=== PATIENT | male | born 1965 | race Two or more races ===

== ENCOUNTER 2016-07-05 19:14 | Inpatient (IN) | payer SELFPAY ==
[~2016-07-05] VITALS: Ht 175.3 cm; Wt 118.6 kg
[2016-07-05] MEDS ORDERED: OXYB5TAB7 PO (19:31)
[2016-07-05] MEDS ORDERED: METO100T2 PO (19:31)
[2016-07-05] MEDS ORDERED: GLIM4TAB2 PO (19:31)
[2016-07-05] MEDS ORDERED: AMLO10TA2 PO (19:31)
[2016-07-05] MEDS ORDERED: LOSA100T6 PO (19:31)
[2016-07-05] MEDS ORDERED: CINN500C PO (19:31)
[2016-07-05] MEDS ORDERED: METF10002 PO (19:31)
[2016-07-05] MEDS ORDERED: NICARDIPINE HCL 50 MG in IV NORMAL SALINE 250ML 250 ML IV ONE (19:45)
[2016-07-05 19:52] LABS: BASO # 0.1 x10^3/uL (0.0-0.2); BASO % 1 % (0-3); EOS % 2 % (0-3); HEMATOCRIT 47.3 % (39.0-53.0); HEMOGLOBIN 16.1 g/dL (13.0-17.5); LYMPH # 2.3 x10^3/uL (1.0-4.8); LYMPH % 28 % (24-48); MEAN CORPUSCULAR HEMOGLOBIN 29 pg (25-35); MEAN CORPUSCULAR HGB CONC 34 g/dL (31-37); MEAN CORPUSCULAR VOLUME 85 fL (79-100); MONO % 7 % (0-9); NEUT % 63 % (31-73); PLATELET COUNT 248 x10^3/uL (140-400); RED BLOOD COUNT 5.53 x10^6/uL (4.30-5.70); RED CELL DISTRIBUTION WIDTH 13.6 % (11.5-14.5); WHITE BLOOD COUNT 8.5 x10^3/uL (4.0-11.0)
[2016-07-05 19:59] LABS: PROTHROMBIN TIME PATIENT 12.1 SEC (11.7-14.0)
[2016-07-05] MEDS ORDERED: IV NORMAL SALINE 1000ML BAG 1,000 ML IV SCH (20:00)
[2016-07-05 20:01] LABS: CALCIUM 9.5 mg/dL (8.5-10.1); CREATININE 1.2 mg/dL (0.7-1.3); GFR 63.8; POTASSIUM 3.8 mmol/L (3.5-5.1)
[2016-07-05 20:07] LABS: ALBUMIN 3.4 g/dL (3.4-5.0); ALBUMIN/GLOBULIN RATIO 0.8 (1.0-1.7); TOTAL BILIRUBIN 0.5 mg/dL (0.2-1.0); TOTAL PROTEIN 7.5 g/dL (6.4-8.2)
--- NOTE | 2016-07-05 20:16 | RAD ---
PROCEDURE CT head without contrast HISTORY CVA, generalized weakness, hypertension, diabetes TECHNIQUE Noncontrast axial cross sectional CT scanning of the head was performed. FINDINGS There is mild diffuse atrophy. There is encephalomalacia consistent with an old right frontal lobe infarct as well as an old right caudate nucleus infarct. No acute intracranial hemorrhage or midline shift or mass-effect or hydrocephalus or extra-axial fluid collection is seen. No focal hypodense area is seen to indicate an acute infarct or edema radiographically. No skull fracture or pneumocephalus is seen. No opacification of the mastoid sinuses or the paranasal sinuses is seen. The maxillary sinuses are not completely seen in this study. IMPRESSION Mild diffuse atrophy and old infarcts. No acute findings. PQRS Statement: One or more of the following individualized dose reduction techniques were utilized for this study: 1. Automated exposure control. 2. Adjustment of the mA and/or kV according to patient size. 3. Use of iterative reconstruction technique. Electronically signed by: Fransisco Linton MD (Jul 05, 2016 20:15:37)
[2016-07-05] MEDS ORDERED: ACETAMINOPHEN 325 MG TABLET. PO PRN (21:15)
[2016-07-05] MEDS ORDERED: ONDANSETRON PF 4 MG/2 ML VIAL. IV PRN ×2 (21:15→22:16)
[2016-07-05 21:37] LABS: BILIRUBIN,URINE NEGATIVE (NEG); GLUCOSE,URINE 250 mg/dL (NEG); NITRITE,URINE NEGATIVE (NEG); PROTEIN,URINE 100 mg/dL (NEG-TRACE); UROBILINOGEN,URINE 0.2 mg/dL (0.2 mg/dL)
[2016-07-05 21:46] LABS: BACTERIA,URINE 0 /HPF (0-FEW); SQUAMOUS EPITHELIAL CELL,UR OCC /LPF; WBC,URINE 20-40 /HPF (0-4)
[2016-07-05] MEDS ORDERED: DEXTROSE 50% 25 GM / 50ML DISP.SYRIN. IV PRN (22:30)
[2016-07-05] MEDS ORDERED: HYDROCODONE/APAP 5/325MG TABLET. PO PRN (22:30)
[2016-07-05 22:45] VITALS: BP 158/87
--- NOTE | 2016-07-05 22:47 | PHYS DOC ---
Past Medical History Past Medical History: CVA, Diabetes-Type II, Hypertension Past Surgical History: No Surgical History Alcohol Use: None Drug Use: None Adult General Chief Complaint Chief Complaint: HYPERTENSION HPI HPI Patient is a 51 year old white male who presents to the ER today complaining of generalized weakness and elevated blood pressure for approximately 1 week. Patient reports he feels weak all over. Patient does have a history significant for stroke that occurred approximately 6 months ago. According to the patient he had left-sided weakness with slurring his speech however his symptoms completely resolved after the stroke and prior to today symptoms he reports she was back to his baseline. Patient reports approximately 1 week ago he started having slurring in his speech and then today felt like his blood pressure was elevated and started to feel weak all over. Patient denies any focal weakness. Patient denies any facial droop. Patient denies any weakness in his left or right weakness greater than the other side. Patient does have a history of diabetes and hypertension. Patient has no history of NH, liver disease, peptic ulcer disease, lung disease, surgeries. Patient does not smoke drink or do drugs. Patient is not allergic to any medications. Patient is currently not on any anticoagulants. Patient is not on any Plavix. Patient denies any fevers shakes chills, patient denies any nausea vomiting or diarrhea, patient denies any chest pain. Patient reports she's had polyuria however this is been going on for approximately 6 months. Patient denies any double vision. Patient reports he is able mike at home however feels weak. Patient has no ataxia. Patient's physical exam and the ER is consistent with 1 elevated blood pressure upon arrival to the ER. Patient's blood pressure was 226/118 upon presentation. #2 nonfocal neuro exam. Patient has no facial droop. Patient's cranial nerves II -12 are intact. Patient has no nystagmus. Patient's cerebellar exam was within normal limits. Patient has equal strength bilaterally in his upper and lower extremities. Patient's workup in the ER was significant for hypertension needs to be acutely treated. Given the patient's symptoms of her recent slurred speech I decided to place the patient on IV nicardipine and obtain a CT scan of his head. Patient's blood pressure significantly improved he is in the ER. Patient's CT scan of his head showed old stroke but nothing acute. Patient's EKG revealed normal sinus rhythm with nonspecific ST-T wave abnormalities. There was no evidence of any acute ischemia on the patient's EKG in the ER. Patient's lab workup was all unremarkable. A/P #1 neurological symptoms. Patient's symptoms started approximately one week ago with slurring his speech and today patient has a complaint of generalized weakness. I do not believe that the weakness that the patient is concerned about a secondary to a stroke since it is nonfocal in nature. Patient's cranial nerves II-12 intact. Patient does not appear to have any facial droop. Patient' s speech right now does not appear to be slurred per the patient's friend. Given the patient's elevated blood pressure the patient was started on a nicardipine drip was titrated in the ED. Patient will be admitted to the ICU for further evaluation treatment and management of his elevated blood pressure and further evaluation of his slurred speech that he had approximately one week ago. Review of Systems Review of Systems Constitutional: Denies fever or chills [] Eyes: Denies change in visual acuity, redness, or eye pain [] Mendez other review systems are negative except as documented in the history of present illness portion Current Medications Current Medications Current Medications Medications (Trade) Dose Ordered Sig/Isaura Start Time Stop Time Status Last Admin Dose Admin Nicardipine HCl/ Sodium Chloride (Cardene/Iv Sodium Chloride 0.9% 250ml) 270 ml @ 0 mls/hr 1X ONCE 07/05/16 19:45 07/05/16 19:49 DC 07/05/16 20:08 0 MLS/HR Sodium Chloride 1,000 ml @ 1,000 mls/hr Q1H 07/05/16 20:00 07/05/16 20:59 DC 07/05/16 20:07 1,000 MLS/HR Allergies Allergies Allergies Coded Allergies Type Severity Reaction Last Updated Verified No Known Drug Allergies 07/05/16 No Physical Exam Physical Exam Constitutional: Well developed, well nourished, no acute distress, non-toxic appearance. [] HENT: Normocephalic, atraumatic, bilateral external ears normal, oropharynx moist, no oral exudates, nose normal. [] Eyes: PERRLA, EOMI, conjunctiva normal, no discharge. [] Neck: Normal range of motion, no tenderness, supple, no stridor. [] Cardiovascular:Heart rate regular rhythm, Lungs & Thorax: Bilateral breath sounds clear to auscultation [] Abdomen: Bowel sounds normal, soft, no tenderness, no masses, no pulsatile masses. [] Skin: Warm, dry, no erythema Back: No tenderness, no CVA tenderness. [] Extremities: No tenderness, no cyanosis, no clubbing, ROM intact, no edema. [] Neurologic: Alert and oriented X 3, normal motor function, normal sensory function, no focal deficits noted. [] Psychologic: Affect normal, judgement normal, mood normal. [] Current Patient Data Vital Signs Vital Signs Date Time Temp Pulse Resp B/P Pulse Ox O2 Delivery O2 Flow Rate FiO2 07/05/16 21:00 74 21 165/98 95 Room Air 07/05/16 19:25 98.7 98.7 Lab Values Laboratory Tests Test 07/05/16 19:25 White Blood Count 8.5x10^3/uL (4.0-11.0) Red Blood Count 5.53x10^6/uL (4.30-5.70) Hemoglobin 16.1g/dL (13.0-17.5) Hematocrit 47.3% (39.0-53.0) Mean Corpuscular Volume 85fL (79-100) Mean Corpuscular Hemoglobin 29pg (25-35) Mean Corpuscular Hemoglobin Concent 34g/dL (31-37) Red Cell Distribution Width 13.6% (11.5-14.5) Platelet Count 248x10^3/uL (140-400) Neutrophils (%) (Auto) 63% (31-73) Lymphocytes (%) (Auto) 28% (24-48) Monocytes (%) (Auto) 7% (0-9) Eosinophils (%) (Auto) 2% (0-3) Basophils (%) (Auto) 1% (0-3) Neutrophils # (Auto) 5.3x10^3uL (1.8-7.7) Lymphocytes # (Auto) 2.3x10^3/uL (1.0-4.8) Monocytes # (Auto) 0.6x10^3/uL (0.0-1.1) Eosinophils # (Auto) 0.2x10^3/uL (0.0-0.7) Basophils # (Auto) 0.1x10^3/uL (0.0-0.2) Prothrombin Time 12.1SEC (11.7-14.0) Prothrombin Time INR 1.0 (0.8-1.1) Sodium Level 142mmol/L (136-145) Potassium Level 3.8mmol/L (3.5-5.1) Chloride Level 102mmol/L (98-107) Carbon Dioxide Level 32mmol/L (21-32) Anion Gap 8 (6-14) Blood Urea Nitrogen 24mg/dL (8-26) Creatinine 1.2mg/dL (0.7-1.3) Estimated GFR (Cockcroft-Gault) 63.8 BUN/Creatinine Ratio 20 (6-20) Glucose Level 258mg/dL (70-99) H Calcium Level 9.5mg/dL (8.5-10.1) Total Bilirubin 0.5mg/dL (0.2-1.0) Aspartate Amino Transferase (AST) 11U/L (15-37) L Alanine Aminotransferase (ALT) 24U/L (16-63) Alkaline Phosphatase 76U/L (46-116) Troponin I Quantitative 0.024ng/mL (0.000-0.055) Total Protein 7.5g/dL (6.4-8.2) Albumin 3.4g/dL (3.4-5.0) Albumin/Globulin Ratio 0.8 (1.0-1.7) L Laboratory Tests 07/05/16 19:25 Laboratory Tests 07/05/16 19:25 EKG EKG [] Radiology/Procedures Radiology/Procedures Critical-care time 35 minutes reutilized and treatment and management of this patient's accelerated hypertension and stroke like symptoms. This is exclusive of any procedures that were performed. Patient was started on nicardipine drip and his blood pressure was titrated. Patient was monitored for signs and symptoms of acute progression of his strokelike symptoms and hypertension. [] Course & Med Decision Making Course & Med Decision Making Pertinent Labs and Imaging studies reviewed. (See chart for details) [] Dragon Disclaimer Dragon Disclaimer This electronic medical record was generated, in whole or in part, using a voice recognition dictation system. Departure Departure Impression: Primary Impression: CVA (cerebral vascular accident) Additional Impression: Hypertensive urgency Disposition: 01 HOME, SELF-CARE Admitting Physician: Sejal Mabry Condition: IMPROVED Referrals: UNKNOWN PCP NAME (PCP) Problem Qualifiers ROBERT BYRNE MD Jul 05, 2016 22:47
[2016-07-05 23:00] VITALS: BP 141/88
[2016-07-05 23:15] VITALS: BP 157/88
[2016-07-05 23:30] VITALS: BP 160/95
[2016-07-05 23:45] VITALS: BP 160/89
[2016-07-05 23:59] VITALS: BP 153/93
[2016-07-06] VITALS (28 sets, daily range): BP systolic 137–172; BP diastolic 82–108
[2016-07-06] MEDS ORDERED: NICARDIPINE HCL 50 MG in IV NORMAL SALINE 250ML 250 ML IV PRN (00:30)
--- NOTE | 2016-07-06 00:55 | ACF ---
Admission Forms Criteria INTENSIVE CARE UNIT ADMISSION Intensive Care Admission Guidelines ( Place 'X' for any and all applicable criteria): Admission to ICU may be indicated when need is demonstrated by ANY ONE of the following (1)(2)(3)(4)(5)(6)(7)(8)(9) : [ ]I. Vital sign abnormalities, including ANY ONE of the following: [ ]a) Systolic arterial pressure less than 90 mm Hg, or 20 mm Hg below the patient's usual pressure [ ]b) Diastolic arterial pressure greater than 120 mm Hg [ ]c) Mean arterial pressure less than 70 mm Hg [A] [ ]d) Pulse less than 40 or greater than 140 beats per minute (in adult) [ ]e) Respiratory rate greater than 35 or less than 8 breaths per minute [ ]II. Laboratory findings (new), including ANY ONE of the following (10): [ ]a) Saturation of arterial oxygen less than 88% or partial pressure of oxygen less than 60 mm Hg (8.0 kPa) despite oxygen supplementation [ ]b) Rising partial pressure of carbon dioxide with respiratory acidosis [ ]c) pH less than 7.2 or greater than 7.65 [ ]d) Serum glucose greater than 800 mg/dL (44.4 mmol/L) [ ]e) Serum sodium less than 110 mEq/L (mmol/L) or greater than 160 mEq/L (mmol/L) [ ]f) Serum potassium less than 2 mEq/L (mmol/L) or greater than 7 mEq /L (mmol/L) [ ]g) Serum calcium greater than 15 mg/dL (3.75 mmol/L) [ ]h) Serum phosphorus less than 1 mg/dL (0.32 mmol/L) [ ]i) Toxic drug level or poisoning causing or likely to cause neurologic or Hemodynamic instability [ ]j) Less severe laboratory abnormalities contributing to ANY ONE of the following: [ ]i) Seizure [ ]ii) Altered mental status [ ]iii) Muscle weakness [ ]iv) Arrhythmias [ ]v) Hemodynamic instability [ ]vi) Other significant clinical manifestations [ ]III. Electrocardiogram (or cardiac monitoring) findings, including ANY ONE of the following: [ ]a) Inherently unstable or life-threatening arrhythmia (eg, sustained ventricular tachycardia, ventricular fibrillation, asystole) [ ]b) Arrhythmia causing severe hypotension (eg, bradycardia, tachycardia) [ ]c) Complete heart block causing severe hypotension [ ]d) Other findings indicative of a need for intensive care (eg , WA) [ ]IV.Physical findings, including ANY ONE of the following: [ ]a) Threatened airway [ ]b) Sudden altered mental status [ ]c) Repeated or prolonged seizures [ ]d) Coma [ ]e) New-onset anuria (urine output <0.1 mL/kg/hr over 4 h) [ ]f) Cyanosis (new) [ ]g) Cardiac tamponade [ ]h) Status post respiratory or cardiac arrest [ ]i) Severe bashir (eg, partial thickness bashir over more than 10% of body surface, third-degree bashir) [ ]j) Findings consistent with abdominal emergency (eg, peritoneal signs) [ ]V.Imaging findings, such as dissecting aneurysm or ruptured viscus [X].Specific intervention or monitoring needed, as indicated by ANY ONE of the following: [ ]a) New need for assisted ventilation, invasive or noninvasive(11) [ ]b) New need for intubation (eg, to protect airway) [ ]c) New tracheostomy (less than 48 hours old) [X]d) Hourly vital signs or neurologic checks [ ]e) Pulmonary artery line monitoring needed [ ]f) Continuous arterial line monitoring needed [ ]g) Continuous IV vasoactive drugs [ ]h) Continuous IV antiarrhythmics [ ]i) Large volume IV fluid resuscitation (eg, greater than 6 L per day ) [ ]j) Large or rapid transfusion needs (eg, more than 6 units within 24 hours) [ ]k) High-risk IV treatment, such as bolus IV medicatns or mannitol infusion [ ]l) Acute cardiac pacing [ ]m) Intra-aortic balloon pump [ ]n) Ventricular assist device [ ]o) Cardioversion [ ]p) Pericardiocentesis [ ]q) Hemodialysis in unstable patient [ ]r) Continuous renal replacement therapy (eg, continuous veno-venous hemofiltration) [ ]s) Peritoneal dialysis initiation [ ]t) Emergency bronchoscopic therapy (eg, for hemoptysis) [ ]u) Emergency endoscopic therapy for bleeding [ ]v) Balloon tamponade for variceal bleeding [ ]w) Intracranial pressure monitoring or tissue oxygen monitoring [ ]x) Ventriculostomy monitoring [ ]y) Treatment of ongoing seizures [ ]z) Induced hypothermia or coma [ ]aa) Ongoing frequent testing and treatment for acute conditions, including ANY ONE of the following: [ ]i) Correction of severe metabolic acidosis/ alkalosis [ ]ii). Severe fluid overload [ ]iii) Cerebral edema [ ]iv) Monitoring or suctioning for respiratory insufficiency or acidosis [ ]v) Monitoring for active bleeding [ ]bb) Rapid desensitization for high-risk hypersensitivity reaction to required medication (eg, penicillin)(12) [ ]cc) Other need for treatment or monitoring not available outside the ICU [ ]VII.Cardiology diagnoses or procedures, including ANY ONE of the following (13)(14)(15)(16)(17): [ ]a) Chest pain with ANY ONE of the following: [ ]i) Hemodynamic instability [ ]ii) Suspicion of diagnoses needing ICU care (eg, aortic dissection) [ ]iii) New unstable or symptomatic arrhythmia or ECG finding (eg, ventricular tachycardia, ventricular fibrillation, advanced heart block) [ ]iv) Syncope or near-syncope [ ]v) SBP less than 100 mm Hg [ ]vi) Pulmonary edema thought to be due to ischemia [ ]vii) New or worsening mitral regurgitation murmur, S3 , or rales [ ]b) Acute WA with complications as indicated by ANY ONE of the following: [ ]i) Persistent chest pain [ ]ii) Hemodynamic instability [ ]iii) New unstable or symptomatic arrhythmia or ECG finding (eg, ventricular tachycardia, ventricular fibrillation, advanced heart block) [ ]iv) Syncope or near-syncope [ ]v) Pulmonary edema thought to be due to ischemia [ ]vi) New or worsening mitral regurgitation murmur, S3 , or rales [ ]vii) New-onset bundle branch block [ ]viii) Hemorrhagic complication (eg, intracranial or access site bleed following thrombolysis) [ ]c) Cardiac arrhythmia or conduction defect with Hemodynamic instability [ ]d) Complication of cardiac ablation, including ANY ONE of the following(18): [ ]i) Pericardial tamponade [ ]ii) Hemodynamic instability [ ]iii) Thromboembolic stroke [ ]iv) Aortic valve injury [ ]v) Vascular injuries [ ]vi) Esophageal perforation [ ]vii) Severe arrhythmia [ ]viii) Air embolism [ ]ix) Other severe complication [ ]e) Cardiogenic shock [ ]f) Hypertensive emergency, with need for ANY ONE of the following(19): [ ]i) IV antihypertensive therapy [ ]ii) Invasive hemodynamic monitoring (eg, arterial line) [ ]g) Pericardial tamponade [ ]h) Severe heart failure, with ANY ONE of the following(15): [ ]i) Respiratory failure [ ]ii) Cardiogenic shock [ ]iii) Severe arrhythmias [ ]iv) Evidence of cardiac ischemia [ ]i Myocarditis, with ANY ONE of the following [ ]i) Hemodynamic instability [ ]ii) Respiratory failure [ ]iii) Severe arrhythmias [ ]iv) Need for cardiac assist device (eg, left ventricular assist device or extracorporeal membrane oxygenator) [ ]j) Status post cardiac arrest(20) [ ]VIII. Cardiovascular Surgery diagnoses or procedures, including ANY ONE of the following.(21)(22): [ ]a) Acute aortic dissection [ ]b) Aortic surgery for ANY ONE of the following: [ ]i) Thoracic aneurysm [ ]ii) Abdominal aneurysm with ANY ONE of the following(23): [ ]1) Emergency repair [ ]2) Severe cardiopulmonary disease [ ]3) Dialysis-dependent renal failure [ ]4) Need for IV blood pressure control [ ]5) Need for ongoing ventilatory support [ ]6) Perioperative complications, including ANY ONE of the following: [ ]A. Sustained Hemodynamic instability [ ]B. Cardiac ischemia or arrhythmia [ ]C. Hypothermia (less than 35 degrees C (95 degrees F)) [ ]D. Blood transfusion greater than 3 L [ ]iii) Aortic coarctation operative excision or repair [ ]iv) Aortofemoral or aortoiliac bypass with ANY ONE of the following: [ ]1) Continued intubation [ ]2) Hemodynamic instability [ ]3) Need for IV blood pressure control [ ]4) Severe cardiopulmonary disease [ ]c) Cardiac surgery [ ]d) Carotid endarterectomy or stent placement with ANY ONE of the following: [ ]i) Blood pressure <100/60 mm Hg or >160/90 mm Hg despite 4 h of postanesthetic management [ ]ii) New or progressive neurologic defect [ ]iii) Chest pain [ ]iv) Continued intubation [ ]v) Heart failure [ ]vi) Airway compromise by hematoma or vocal cord paralysis [ ]vi) Need for IV blood pressure control [ ]e) Heart transplant [ ]f) Infrainguinal peripheral vascular surgery with ANY ONE of the following: [ ]i) Hemodynamic instability [ ]ii) Acute complications such as persistent chest pain or respiratory distress [ ]iii) Requirement for IV antiarrhythmic or vasoactive agent [ ]iv) Requirement for pulmonary artery catheter [ ]v) Severe hypertension despite 6 hours of recovery room management [ ]g) Complications of any surgery requiring ICU intervention as indicated by ANY ONE of the following(24): [ ]i) Hemodynamic instability [ ]ii) Myocardial infarction with complications (eg, severe arrhythmia, hypotension) [ ]iii) Excessive bleeding or severe coagulopathy [ ]iv) Respiratory failure [ ]v) Renal failure [ ]vi) Airway instability or obstruction [ ]vii) Neurologic deterioration [ ]viii) Infection with likelihood of sepsis syndrome or significant fluid shifts [ ]IX.Endocrinology diagnoses or procedures, including ANY ONE of the following(25)(26): [ ]a) Adrenal crisis with Hemodynamic instability(27) [ ]b) Pheochromocytoma with ANY ONE of the following(28): [ ]i) Hypertensive crisis [ ]ii) Postoperative Hemodynamic instability [ ]iii) Need for IV vasoactive therapy [ ]iv) Need for invasive arterial or central venous pressure monitoring [ ]v) Organ ischemia [ ]c) Diabetic hyperosmolar state with obtundation or coma [ ]d) Diabetic ketoacidosis with ANY ONE of the following: [ ]i) Serum pH less than 7.10 or bicarbonate level less than 10 mEq/L (mmol/L) [ ]ii) Rapidly changing electrolytes [ ]iii) Hypotension [ ]iv) Requirement for large-volume fluid resuscitation [ ]v) Respiratory insufficiency [ ]vi) Life-threatening cardiac dysrhythmias [ ]vii) Obtundation [ ]viii) Severe precipitating condition such as sepsis, stroke, or acute WA [ ]e) Severe hypoglycemia requiring continuous glucose infusion with frequent adjustment or glucagon infusion [ ]f) Hyperthyroidism associated with thyroid storm (also known as thyrotoxic crisis)(29) [ ]g) Myxedema with life-threatening neurologic, cardiovascular, electrolyte, or renal dysfunction(29) [ ]h) Diabetes insipidus that cannot be controlled with routine medication (30) [ ]X. Gastroenterology diagnoses or procedures, including ANY ONE of the following: [ ]a) Esophageal perforation(31) [ ]b) Severe caustic esophageal injury(31) [ ]c) Liver disease complications with ANY ONE of the following(32): [ ]i) Severe hepatic encephalopathy (eg, stage 3 (somnolent) or higher) [ ]ii) Type 1 hepatorenal syndrome [ ]iii) Other cirrhosis-associated causes of acute renal failure ( eg, severe hypovolemia, acute tubular necrosis, abdominal compartment syndrome) [ ]iv) Hemodynamic instability [ ]v) Respiratory insufficiency due to severe ascites [ ]vi) Sepsis due to spontaneous bacterial peritonitis [ ]d) Fulminant hepatic failure when aggressive intervention or transplant is anticipated (32) [ ]e) Gastrointestinal hemorrhage (upper or lower) with ANY ONE of the following(33)(34): [ ]i) Active ongoing bleeding [ ]ii) Transfusion requirement greater than 2 units of packed red cells [ ]iii) Bleeding ulcer or nonbleeding visible vessel seen on endoscopy [ ]iv) Bleeding ulcer, visible blood vessel, bleeding (or recently bleeding) esophageal varices seen on endoscopy [ ]v) Hypotension [ ]vi) Syncope [ ]vii) Coagulopathy [ ]viii) Hepatic cirrhosis [ ]ix) Abnormal mental status [ ]x) Unstable comorbid condition or end organ dysfunction [ ]xi) Ischemia due to poor perfusion [ ]xii) Need for hemodynamic monitoring (eg, for patients with heart failure or valvular disease) [ ]f) Severe pancreatitis indicated by ANY ONE of the following (35)(36): [ ]i) Requirement for aggressive fluid resuscitation [ ]ii) Life-threatening electrolyte abnormality [ ]iii) SBP less than 90 mm Hg [ ]iv) Persistent tachycardia greater than 120 beats per minute [ ]v) Patients at high risk of rapid deterioration, including ANY ONE of the following: [ ]1) Calculated [place] II score greater than 8 [ ]2) Age older than 55 years [ ]3) BMI greater than 30 [ ]4) Greater than 30% pancreatic necrosis on CT scan [ ]5) Admission hematocrit greater than 47% (0.47) [ ]vi) Organ failure as indicated by ANY ONE of the following: [ ]1) Serum creatinine greater than 1.9 mg/dL (168 micromoles/L) [ ]2) Requirement for mechanical ventilation [ ]3) Urine output less than 50 mL/hour [ ]4) Arterial partial pressure of oxygen less than 60 mm Hg (8.0 kPa) despite supplemental oxygen [ ]5) PiO2/FiO2 ratio less than 300 [ ]vii) Expanding pseudocyst [ ]viii) Infected pancreas [ ]ix) Pleural effusion [ ]x) Encephalopathy [ ]xi) Severe comorbidities [ ]XI. General Surgery diagnoses or procedures, including ANY ONE of the following (9)(24)(37): [ ]a) Acute abdominal catastrophe (eg, ischemic bowel, perforated viscus, abdominal compartment syndrome) [ ]b) Complications of any surgery requiring ICU intervention as indicated by ANY ONE of the following: [ ]i) Hemodynamic instability [ ]ii) WA with complications (eg, severe arrhythmia, hypotension) [ ]iii) Excessive bleeding or severe coagulopathy [ ]iv) Respiratory failure [ ]v) Renal failure [ ]vi) Airway instability or obstruction [ ]vii) Neurologic deterioration [ ]viii) Infection with likelihood of sepsis syndrome or significant fluid shifts [ ]c) Multiple trauma with complicating features as indicated by ANY ONE of the following(38): [ ]i) Impending acute respiratory failure due to lung contusion, unstable chest wall, aspiration, or hemorrhage [ ]ii) Facial or neck injury threatening airway patency [ ]iii) Cardiac contusion [ ]iv) Pericardial effusion [ ]v) Bronchial tear [ ]vi) Hemodynamic instability [ ]vii) Rhabdomyolisis requiring large volume IV fluid resuscitation [ ]viii)Other significant complicating feature [ ]d) Organ transplant(39)(40) [ ]e) Esophagectomy(31) [ ]f) Whipple procedure [ ]g) Preoperative or postoperative patients requiring ICU intervention, such as hemodynamic optimization, pulmonary artery monitoring, mechanical ventilation, or extensive nursing care [ ]h) Obesity surgery patients with ANY ONE of the following(41): [ ]i) ICU management needs for comorbid conditions, such as sleep apnea or airway management needs [ ]ii) Failed postoperative extubation [ ]iii) Intraoperative complications [ ]XII. Nephrology diagnoses or procedures, including acute, or acute on chronic renal insufficiency with ANY ONE of the following(44)(45): [ ]a) Life-threatening electrolyte or acid-base disorder [ ]b) Acute pulmonary edema [ ]c) Hypotension or significant volume depletion [ ]d) Hypertensive emergency [ ]e) Underlying critical illness contributing to renal failure (eg, septic shock, hepatorenal syndrome) [ ]f) Need for continuous renal replacement therapy [ ]XIII. Neurology diagnoses or procedures, including ANY ONE of the following (46)(47) [B] : [ ]a) Intracranial hypertension requiring ANY ONE of the following(49 ): [ ]i) Induced barbiturate coma [ ]ii) Pharmacologic paralysis or deep sedation and mechanical ventilation [ ]iii) Intracranial pressure or cerebral perfusion pressure monitoring [ ]iv) IV mannitol or hypertonic saline [ ]v) Frequent serum osmolality measurements [ ]b) Seizures with ANY ONE of the following(50): [ ]i) Status epilepticus [ ]ii) Airway compromise requiring or likely to require mechanical ventilation [ ]iii) Severe electrolyte abnormalities causing seizures [ ]c) Progressive acute neurologic dysfunction requiring or likely to require ANY ONE of the following: [ ]i) Mechanical ventilation [ ]ii) Intracranial pressure or cerebral perfusion pressure monitoring [ ]d) Meningitis with obtundation or respiratory insufficiency [C])(51 ) [ ]e) Stroke with ANY ONE of the following(52)(53): [ ]i) Need for observation after thrombolysis [ ]ii) Altered mental status [ ]iii) Need for mechanical ventilation [ ]iv) Elevated intracranial pressure [ ]v) Hypertensive emergency [ ]vi) High risk of progressive infarction or deterioration based on CT scan or MRI [ ]vii) Hemorrhage [ ]f) Acute coma [ ]g) Acute spontaneous intracranial hemorrhage(53)(54) [ ]h) Drug ingestion with ANY ONE of the following(56)(57): [ ]i) Hemodynamic instability [ ]ii) Respiratory depression (partial pressure of carbon dioxide >45 mm Hg (6.0 kPa), new) [ ]iii) Patient requires or is likely to require mechanical ventilation. [ ]iv) Arrhythmias [ ]v) Seizures [ ]vi) Altered mental status (Mccune coma scale score less than 12, new) [ ]vii) Significant risk for acute deterioration (eg, toxic level of hypotension or arrhythmia-producing drug) [ ]viii) Drug-induced hypothermia or hyperthermia [ ]ix) Increasing metabolic acidosis [ ]x) Severe hypoglycemia requiring glucose infusion with frequent adjustment or glucagon administration [ ]xi) Ongoing antidote administration (eg, continuous naloxone infusion, organophosphate toxicity treatment) [ ]xii) Emergency intervention need (eg, dialysis, hemoperfusion, restraints) [ ]i) Brain with preparation for organ donation [ ]j) Traumatic brain injury with ANY ONE of the following(55): [ ]i) Altered mental status (eg, new onset Eamon coma scale score less than 10) [ ]ii) Cerebral edema [ ]iii) Cerebral hemorrhage [ ]iv) Increased intracranial pressure [ ]XIV. Neurosurgery diagnoses or procedures, including ANY ONE of the following(49)(58)(59): [ ]a) Emergency craniotomy for tumor, hematoma, or trauma [ ]b) Elective craniotomy for posterior fossa tumor [ ]c) Elective craniotomy (supratentorial) for tumor with ANY ONE of the following: [ ]i) Postoperative neurologic deficit or impaired consciousness 6 hours after completion of procedure [ ]ii) SBP less than 110 mm Hg or greater than 180 mm Hg despite therapy [ ]iii) Extensive operative blood loss [ ]iv) High anesthesia risk (eg, [place] [employer] score greater than 3 [ ]d) Craniotomy for aneurysm with ANY ONE of the following: [ ]i) Postoperative neurologic deficit or impaired consciousness 6 hours after completion of procedure [ ]ii) Preoperative Yanes-Denton grade 3 or higher [ ]iii) SBP less than 110 mm Hg or greater than 180 mm Hg despite therapy [ ]iv) Intracranial pressure monitoring [ ]e) Acute spinal cord injury [ ]f) Subarachnoid hemorrhage [ ]g) Traumatic brain injury with ANY ONE of the following: [ ]i) Acute mental status change (Eamon coma scale score less than 10) [ ]ii) CT scan showing cerebral edema or hemorrhage [ ]iii) Intracranial pressure monitoring [ ]h) Complications of any surgery requiring ICU intervention as indicated by ANY ONE of the following(60): [ ]i) Hemodynamic instability [ ]ii) WA with complications (eg, severe arrhythmia, hypotension) [ ]iii) Excessive bleeding or severe coagulopathy [ ]iv) Respiratory failure [ ] v) Renal failure [ ]vi) Airway instability or obstruction [ ]vii) Neurologic deterioration [ ]viii) Infection with likelihood of sepsis syndrome or significant fluid shifts [ ]i) Preoperative or postoperative patients requiring ICU intervention, such as hemodynamic optimization, pulmonary artery monitoring, mechanical ventilation, or extensive nursing care [ ]XV.Obstetrics and Gynecology diagnoses or procedures, including ANY ONE of the ffg. (61)(62)(63): [ ]a) Severe peripartum condition as indicated by ANY ONE of the following: [ ]i) Eclampsia [ ]ii) Hypertensive emergency [ ]iii) HELLP syndrome (hemolysis, elevated liver enzymes, and low platelet count) [ ]iv) Pulmonary edema [ ]v) Respiratory failure [ ]vi) Pulmonary embolism [ ]vii) Anaphylactoid syndrome of (amniotic fluid embolus) [ ]viii) Ovarian hyperstimulation syndrome [D] [ ]ix) Acute fatty liver of (hepatic failure) [ ]x) Complications such as placental abruption or severe hemorrhage [ ]xi) Sepsis (eg, puerperal sepsis, chorioamnionitis, septic ) [ ]xii) cardiomyopathy with severe congestive heart failure (eg, respiratory failure, cardiogenic shock) [ ]b) Ruptured ectopic [ ]c) Complications of any surgery requiring ICU intervention as indicated by ANY ONE of the following: [ ]i) Hemodynamic instability [ ]ii) WA with complications (eg, severe arrhythmia, hypotension) [ ]iii) Excessive bleeding or severe coagulopathy [ ]iv) Respiratory failure [ ]v) Renal failure [ ]vi) Airway instability or obstruction [ ]vii) Neurologic deterioration [ ]viii) Infection with likelihood of sepsis syndrome or significant fluid shifts [ ]d) Preoperative or postoperative patients requiring ICU intervention , such as hemodynamic optimization, pulmonary artery monitoring, mechanical ventilation, or extensive nursing care [ ]XVI.Ophthalmology diagnoses or procedures, including ANY ONE of the following (64): [ ]a) Complications of any surgery requiring ICU intervention, such as ANY ONE of the following: [ ]i) Hemodynamic instability [ ]ii) WA with complications (eg, severe arrhythmia, hypotension) [ ]iii) Excessive bleeding or severe coagulopathy [ ]iv) Respiratory failure [ ]v) Renal failure [ ]vi) Airway instability or obstruction [ ]vii) Neurologic deterioration [ ]viii) Infection with likelihood of sepsis syndrome or significant fluid shifts [ ]b) Preoperative or postoperative patients requiring ICU intervention , such as hemodynamic optimization, pulmonary artery monitoring, mechanical ventilation, or extensive nursing care [ ]XVII.Orthopedics diagnoses or procedures, including ANY ONE of the following [phone]): [ ]a) Complications of any surgery requiring ICU intervention as indicated by ANY ONE of the following: [ ]i) Hemodynamic instability [ ]ii) WA with complications (eg, severe arrhythmia, hypotension) [ ]iii) Excessive bleeding or severe coagulopathy [ ]iv) Respiratory failure [ ]v) Renal failure [ ]vi) Airway instability or obstruction [ ] vii) Neurologic deterioration [ ]viii) Infection with likelihood of sepsis syndrome or significant fluid shifts [ ]b) Multiple trauma with complicating features as indicated by ANY ONE of the following(38): [ ]i) Impending acute respiratory failure due to lung contusion, unstable chest wall, pneumothorax, aspiration, or hemorrhage [ ]ii) Facial or neck injury threatening airway patency [ ]iii) Cardiac contusion [ ]iv) Rhabdomyolysis requiring large volume IV fluid resuscitation [ ]v) Pericardial effusion [ ]vi) Bronchial tear [ ]vii) Hemodynamic instability [ ]viii) Other significant complicating feature [ ]c) Threatened compartment syndrome [ ]d) Severe bashir with ANY ONE of the following(68)(69)(70): [ ]i) Hypotension or requirement for aggressive fluid resuscitation [ ]ii) Respiratory insufficiency with requirement for high- flow oxygen or mechanical ventilation [ ]iii) Carbon monoxide poisoning [ ]iv) Life-threatening cardiac, renal, pulmonary, or neurologic dysfunction [ ]v) High-voltage (eg, 1000 volts or more) electrical burn [ ]vi) Requirement for frequent or intensive debridement and dressing changes; examples include: [ ]1) Partial thickness bashir greater than 10% of body surface [ ]2) Bashir on face, hands, feet, genitalia, perineum , or major joints [ ]3) Third-degree bashir [ ]4) Any burn greater than 15% of body surface area [ ]vii) Inhalation lung injury [ ]viii) Concomitant trauma or other medical condition requiring ICU care [ ]e) Preoperative or postoperative patients requiring ICU intervention , such as hemodynamic optimization, pulmonary artery monitoring, mechanical ventilation, or extensive nursing care [ ]XVIII.Otolaryngology diagnoses or procedures, including ANY ONE of the following (71)(72): [ ]a) Complications of any surgery requiring ICU intervention as indicated by ANY ONE of the following: [ ]i) Hemodynamic instability [ ]ii) WA with complications (eg, severe arrhythmia, hypotension) [ ]iii) Excessive bleeding or severe coagulopathy [ ]iv) Respiratory failure [ ]v) Renal failure [ ]vi) Airway instability or obstruction [ ]vii) Neurologic deterioration [ ]viii) Infection with likelihood of sepsis syndrome or significant fluid shifts [ ]b) Airway or hemodynamic compromise that persists after 3 hours of observation in postanesthesia care unit following nasal, palate (eg, uvulopalatopharyngoplasty or palatoplasty), or tongue surgery for sleep apnea [ ]c) Preoperative or postoperative patient requiring ICU intervention, such as hemodynamic optimization, pulmonary artery monitoring, mechanical ventilation, or extensive nursing care [ ]d) Symptomatic upper airway compromise (eg, laryngeal edema, mass) [ ]e) Other airway-compromising procedure (eg, posterior nasal packing) [ ]XIX.Thoracic Surgery and Pulmonary Disease Diagnosis or procedures, including ANY ONE of the following(6): [ ]a) Asthma with ANY ONE of the following(73)(74): [ ]i) Impending or actual respiratory arrest [ ]ii) Need for mechanical ventilation [ ]iii) Peak expiratory flow rate less than 30% of predicted or personal best [ ]iv) Peak expiratory flow rate or FEV1 less than 40% predicted after 1 hour of initial treatment [ ]v) Acidosis [ ]vi) Persistent or worsening hypoxia after initial treatment [ ]vii) Hypercapnia (eg, partial pressure of carbon dioxide greater than 43 mm Hg (5.7 kPa)) [ ]viii) Severe drowsiness, confusion, or coma [ ]ix) Requiring continuous inhaled bronchodilator [ ]b) COPD with ANY ONE of the following(75): [ ]i) Need for assisted ventilation [ ]ii) Hemodynamic instability [ ]iii) Severe dyspnea unresponsive to initial treatment [ ]iv) Change in level of consciousness [ ]v) Persistent findings despite oxygen and outpatient management, including ANY ONE of the following: [ ]1) Partial pressure of oxygen less than 40 mm Hg ( 5.3 kPa) [ ]2) Partial pressure of carbon dioxide greater than 60 mm Hg (8.0 kPa) [ ]3) pH less than 7.25 [ ]4) Worsening hypoxemia or acidosis [ ]c) Cor pulmonale with ANY ONE of the following(75)(76)(77): [ ]i) Hemodynamic instability [ ]ii) Need for IV inotropic or vasoactive agent [ ]iii) Need for invasive hemodynamic monitoring (eg, central venous, pulmonary artery, or arterial catheter) [ ]iv) Hypoxemia with partial pressure of oxygen less than 40 mm Hg (5.3 kPa) [ ]v) Worsening hypoxemia or acidosis despite oxygen therapy [ ]vi) Need for assisted ventilation [ ]vii) Need for right ventricular assist device [ ]viii) Unstable atrial tachyarrhythmia [ ]ix) Need for inhaled nitric oxide [ ]d) Aspiration pneumonia with ANY ONE of the following(78): [ ]i) Acute respiratory distress syndrome (PaO2/FiO2 ratio of 300 or less) [ ]ii) Impending or actual respiratory arrest [ ]iii) Need for invasive or noninvasive mechanical ventilation [ ]e) Pneumocystis jiroveci pneumonia with ANY ONE of the following(79): [ ]i) Impending or actual respiratory arrest [ ]ii) Hypoxia (eg, PO260 mmGh (8.0 kPa) or less despite oxygen therapy) [ ]iii) Need for invasive or noninvasive mechanical ventilation [ ]f) Pneumonia with ANY ONE of the following(80)(81)(82): [ ]i) Need for invasive or noninvasive assisted ventilation [ ]ii) Hemodynamic instability [ ]iii) Severity factors as indicated by 3 or MORE of the following: [ ]1) Respiratory rate 30 breaths per minute or greater [ ]2) PaO2/FiO2 ratio of 250 or less [ ]3) Multilobed infiltrates [ ]4) Altered mental status [ ]5) BUN 20 mg/dL (7.1 mmol/L) or greater [ ]6) WBC count less than 4000/mm3 (4 x109/L) [ ]7) Platelet count <100,000/mm3 (100 x109/L) [ ]8) Temperature less than 36 degrees C (96.8 degrees F ) [ ]9) Hypotension requiring aggressive fluid resuscitation [ ]g) Pulmonary hypertension requiring initiation of parenteral pulmonary vasodilator or trial of inhaled nitric oxide (eg, need for right heart catheterization)(76) [ ]h) Impending respiratory failure as indicated by ANY ONE of the following: [ ]i) Respiratory rate greater than 30 or partial pressure of oxygen less than 60 mm Hg (8.0 kPa) on 50% oxygen or more [ ]ii) Partial pressure of carbon dioxide greater than 45 mm Hg (6.0 kPa) with pH less than 7.35 [ ]i) Respiratory failure with ANY ONE of the following (47): [ ]i) Need for invasive or noninvasive mechanical ventilation [ ]ii) High likelihood of requiring mechanical ventilation within 24 hours [ ]iii) Observation in the first several hours immediately after extubation from mechanical ventilation [ ]iv) Need for close observation and aggressive therapy, such as suctioning, chest physiotherapy, or inhalation treatments at intervals less than 1 hour [ ]v) Pharmacologic ventilatory paralysis [ ]j) Venous thromboembolism with need for systemic or catheter- directed thrombolysis (eg, for limb-threatening thrombosis, phlegmasia cerulea dolens) (83) [ ]k) Pulmonary embolus with ANY ONE of the following(83): [ ]i) Hypotension [ ]ii) Severe hypoxia [ ]iii) Dangerous arrhythmia [ ]iv) Bleeding [ ]v) Need for systemic or catheter-directed thrombolysis [ ]l) Lobectomy or other major thoracic surgery [ ]m) Lung transplant [ ]n) Symptomatic upper airway obstruction (eg, laryngeal edema, mass) [ ]o) Massive hemoptysis [ ]p) Infection or thrombosis of an intravenous device with ANY ONE of the following(6)(84): [ ]i) Hemodynamic instability [ ]ii) Requirement for frequent hemodynamic measurements [ ]iii) Shock [ ]iv) End organ dysfunction [ ] v) Acute renal failure due to missed dialysis [ ]vi) Unstable acute complication (eg, pericardial tamponade , tension pneumothorax) [ ]q) Traumatic rib fracture or fractures with ANY ONE of the following(85): [ ]i) Injury severity score of 19 or greater [ ]ii) Respiratory insufficiency [ ]iii) Flail chest [ ]iv) Sternum fracture [ ]v) Vascular injury (eg, heart or great vessels) [ ]r) Pleural effusion with ANY ONE of the following(86): [ ]i) Respiratory insufficiency [ ]ii) Hemothorax with active ongoing bleeding [ ]iii) Hemodynamic instability [ ]iv) Unstable comorbid condition (eg, sepsis or heart failure [ ]XX. Urology diagnoses or procedures, including ANY ONE of the following ( 87)(88): [ ]a) Renal transplant [ ]b) Complications of any surgery requiring ICU intervention as indicated by ANY ONE of the following: [ ]i) Hemodynamic instability [ ]ii) WA with complications (eg, severe arrhythmia, hypotension) [ ]iii) Excessive bleeding or severe coagulopathy [ ]iv) Respiratory failure [ ]v) Renal failure [ ]vi) Airway instability or obstruction [ ]vii) Neurologic deterioration [ ]viii) Infection with likelihood of sepsis syndrome or significant fluid shifts [ ]c) Preoperative or postoperative patients requiring ICU intervention , such as hemodynamic optimization, pulmonary artery monitoring, mechanical ventilation , or extensive nursing care [ ]XXI.Infectious Disease diagnoses or procedures, with ANY ONE of the following (6)(43): [ ]a) Hemodynamic instability [ ]b) Shock [ ]c) Requirement for frequent hemodynamic measurements (eg, arterial catheter, pulmonary artery catheter) [ ]d) Sepsis or suspected sepsis with end organ dysfunction (eg, acute kidney injury, acute respiratory distress syndrome) [ ]e) Necrotizing soft tissue infection [ ] XXII.Hematology - Oncology diagnoses or procedures, including chemotherapy administration with ANY ONE of the following(42): [ ]a) Hemodynamic instability [ ]b) Tumor lysis syndrome with ANY ONE of the following : [ ]1) Acute kidney injury [ ]2) Severe electrolyte abnormality [ ]3) Cardiac dysrhythmia [ ]XXIII. Systemic conditions, including ANY ONE of the following: [ ]a) Severe electrolyte or metabolic disturbance causing or likely to cause ANY ONE of the following(10)(89)(90): [ ]i) Life-threatening cardiac dysrhythmia [ ]ii) Respiratory insufficiency [ ]iii) Altered mental status [ ]iv) Seizures [ ]v) Hemodynamic instability [ ]vi) Muscular weakness [ ]b) Environmental injuries such as hypothermia, hyperthermia, electrical injuries, or near drowning(70)(91)(92) The original [facility] content created by [employer] has been revised. The portions of the content which have been revised are identified through the use of italic text or in bold, and [facility] has neither reviewed nor approved the modified material. All other unmodified content is copyright [facility]. Please see references footnoted in the original [facility] edition 2016 Admission Criteria Met?: Yes DOUG BANUELOS Jul 06, 2016 00:55
[2016-07-06] MEDS ORDERED: PNEUMOCOCCAL VAX SCREEN BY RX. MC ONE (01:15)
[2016-07-06] MEDS ORDERED: INFLUENZA VAX SCREEN BY RX. MC ONE (01:15)
[2016-07-06 07:58] LABS: HEMATOCRIT 44.7 % (39.0-53.0); RED BLOOD COUNT 5.23 x10^6/uL (4.30-5.70); RED CELL DISTRIBUTION WIDTH 13.6 % (11.5-14.5); WHITE BLOOD COUNT 7.1 x10^3/uL (4.0-11.0)
[2016-07-06 08:11] LABS: CALCIUM 8.9 mg/dL (8.5-10.1); CREATININE 0.9 mg/dL (0.7-1.3); POTASSIUM 3.5 mmol/L (3.5-5.1)
[2016-07-06] MEDS: METFORMIN 1,000 MG TABLET PO SCH ×2 (08:13→16:55)
[2016-07-06] MEDS: GLIMEPIRIDE 2 MG TABLET PO SCH (08:13)
[2016-07-06] MEDS: INSULIN ASPART 300 UNITS/3 ML INSULN.PEN SQ SCH ×3 (08:15→17:00)
--- NOTE | 2016-07-06 08:28 | RAD ---
Indication weakness. Protocol study. A single view of the chest was obtained. No prior imaging of the chest is available. There is mild cardiomegaly. There is no focal infiltrate. There is no congestive heart failure. Significant pleural fluid is not seen. There is no pneumothorax. The bony structures appear grossly intact. IMPRESSION: No acute or focal process seen in the chest
[2016-07-06] MEDS ORDERED: AMLODIPINE BESYLATE 10 MG TABLET PO SCH (09:00)
[2016-07-06] MEDS ORDERED: FLU VACC QUAD 2016-17 (36MOS+)/PF 0.5 ML SYRINGE. VAX IM ONE (09:00)
[2016-07-06] MEDS ORDERED: PNEUMOC CONJ VACC 23-VALENT 0.5 ML VIAL. VAX IM ONE (09:00)
[2016-07-06] MEDS: LOSARTAN POTASSIUM 50 MG TABLET. PO SCH (09:14)
[2016-07-06] MEDS: OXYBUTYNIN CHLORIDE 5 MG TABLET PO SCH ×2 (09:15→21:44)
[2016-07-06] MEDS: METOPROLOL TART IMMED RELEASE 50 MG TABLET PO SCH ×2 (09:15→21:44)
[2016-07-06] MEDS ORDERED: ONDANSETRON PF 4 MG/2 ML VIAL. IV PRN (10:15)
[2016-07-06] MEDS ORDERED: ACETAMINOPHEN 325 MG TABLET. PO PRN (10:15)
--- NOTE | 2016-07-06 11:31 | EKG ---
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
--- NOTE | 2016-07-06 15:24 | PDOC2 ---
CONSULT Date of Consult Date of Consult DATE: 07/06/16 TIME: 15:15 Reason for Consult Reason for Consult: Hypertension Referring Physician Referring Physician: Dr Mabry History of Present Illness Reason for Visit: This patient is a 51-year-old gentleman with a known history of a difficult to control hypertension as well as diabetes. The patient had a CVA about 6 months ago and it left him with some weakness as well as some speech difficulties and memory loss. He has been improving since the CVA. The patient's blood pressure has been up and down recently as well as his blood sugars. He has been having for close to a week generalized aches and pains mostly in all of the joints but affecting chest back abdomen and legs. Yesterday he felt weak and was dizzy and almost fell down therefore the patient came to the emergency room where he was seen and evaluated and he was decided to bring him in. The patient states that he has pains all over and when they asked him if he is having chest pain she said yes. Since then the EKG has been unchanged and the enzymes have been normal however his blood pressure has been markedly elevated requiring a Cardene drip. At this time he has generalized aches but denies having any dyspnea and the blood pressure is running in the 190s. Past Medical History Cardiovascular: HTN CENTRAL NERVOUS SYSTEM: CVA Endocrine: Diabetes, Other (obesity) Current Problem List Problem List Problems Medical Problems: (1) CVA (cerebral vascular accident) Status: Acute (2) Hypertensive urgency Status: Acute Current Medications Current Medications Current Medications Sodium Chloride 1,000 ml @ 1,000 mls/hr Q1H IV Last administered on 07/05/16 20:07; Start 07/05/16 at 20:00; Stop 07/05/16 at 20:59; Status DC Nicardipine HCl/ Sodium Chloride (Cardene/Iv Sodium Chloride 0.9% 250ml) 270 ml @ 0 mls/hr 1X ONCE IV Last administered on 07/05/16 20:08; Start 07/05/16 at 19:45; Stop 07/05/16 at 19:49; Status DC Ondansetron HCl (Zofran) 4 mg PRN Q8HRS PRN IV NAUSEA/VOMITING; Start 07/05/16 at 21:15; Stop 07/05/16 at 22:18; Status DC Acetaminophen (Tylenol) 650 mg PRN Q4HRS PRN PO FEVER; Start 07/05/16 at 21:15 ; Stop 07/06/16 at 10:16; Status DC Ondansetron HCl (Zofran) 4 mg PRN Q6HRS PRN IV NAUSEA/VOMITING; Start 07/05/16 at 22:16 Acetaminophen/ Hydrocodone Bitart (Lortab 5/325) 1 tab PRN Q4HRS PRN PO MODERATE PAIN; Start 07/05/16 at 22:30 Amlodipine Besylate (Norvasc) 10 mg DAILY PO Last administered on 07/06/16 09: 16; Start 07/06/16 at 09:00; Stop 07/06/16 at 13:52; Status DC Metformin HCl (Glucophage) 1,000 mg BIDWMEALS PO Last administered on 08:13; Start 07/06/16 at 08:00 Oxybutynin Chloride (Ditropan) 5 mg BID PO Last administered on 07/06/16 09:15 ; Start 07/06/16 at 09:00 Glimepiride (Amaryl) 4 mg DAILYWBKFT PO Last administered on 07/06/16 08:13; Start 07/06/16 at 08:00 Losartan Potassium (Cozaar) 100 mg DAILY PO Last administered on 07/06/16 09: 14; Start 07/06/16 at 09:00 Metoprolol Tartrate (Lopressor) 100 mg BID PO Last administered on 07/06/16 09 :15; Start 07/06/16 at 09:00 Insulin Aspart (Novolog) 0-9 UNITS TIDWMEALS SQ Last administered on 07/06/16 12:20; Start 07/06/16 at 08:00 Dextrose 12.5 gm 12.5 gm PRN Q15MIN PRN IV SEE COMMENTS; Start 07/05/16 at 22: 30 Nicardipine HCl/ Sodium Chloride (Cardene/Iv Sodium Chloride 0.9% 250ml) 270 ml @ 0 mls/hr CONT PRN IV SEE I/O RECORD; Start 07/06/16 at 00:30 Info (Do NOT chart on this placeholder) 1 each 1X ONCE MC ; Start 07/06/16 at 01:15; Stop 07/06/16 at 01:16; Status UNV Pneumococcal Polyvalent Vaccine (Do NOT chart on this placeholder) 1 each 1X ONCE MC ; Start 07/06/16 at 01:15; Stop 07/06/16 at 01:16; Status UNV Influenza Virus Vaccine Quadrival (Fluarix Quad [id number] Syringe) 0.5 ml ONCE ONCE VAX IM Last administered on 07/06/16t 11:53; Start 07/06/16 at 09:00; Stop 07/06/16 at 09:01; Status DC Pneumococcal Polyvalent Vaccine (Pneumovax 23) 0.5 ml ONCE ONCE VAX IM Last administered on 07/06/16t 11:51; Start 07/06/16 at 09:00; Stop 07/06/16 at 09:01 ; Status DC Acetaminophen (Tylenol) 650 mg PRN Q6HRS PRN PO MILD PAIN / TEMP; Start at 10:15 Ondansetron HCl (Zofran) 4 mg PRN Q6HRS PRN IV NAUSEA/VOMITING; Start 07/06/16 at 10:15; Status UNV Amlodipine Besylate (Norvasc) 10 mg BID PO ; Start 07/06/16 at 21:00 Active Scripts Active Reported Cinnamon (Cinnamon Bark) 500 Mg Capsule 500 Mg PO Losartan Potassium 100 Mg Tablet 100 Mg PO DAILY Amlodipine Besylate 10 Mg Tablet 10 Mg PO DAILY Metformin Hcl 1,000 Mg Tablet 1 Tab PO BID Oxybutynin Chloride 5 Mg Tablet 1 Tab PO BID Metoprolol Tartrate 100 Mg Tablet 1 Tab PO BID Glimepiride 4 Mg Tablet 1 Tab PO DAILY Allergies Allergies: Coded Allergies: No Known Drug Allergies (Unverified , 07/05/16) Physical Exam Physical Exam The patient is a little anxious at the time of the examination. H EENT pupils are reactive, oral mucosa well-hydrated. Neck is supple no JVD. Lungs are clear. Heart regular rate and rhythm S1-S2 no S3 no S4. Abdomen is soft bowel sounds are present. Extremities no edema. Vitals VITALS Vital Signs Date Time Temp Pulse Resp B/P Pulse Ox O2 Delivery O2 Flow Rate FiO2 07/06/16 12:58 58 19 168/93 98 Room Air 07/06/16 12:00 98.7 98.7 Labs Labs Laboratory Tests Test 07/05/16 19:25 07/05/16 21:25 07/06/16 07:30 07/06/16 08:10 White Blood Count 8.5x10^3/uL (4.0-11.0) 7.1x10^3/uL (4.0-11.0) Red Blood Count 5.53x10^6/uL (4.30-5.70) 5.23x10^6/uL (4.30-5.70) Hemoglobin 16.1g/dL (13.0-17.5) 15.0g/dL (13.0-17.5) Hematocrit 47.3% (39.0-53.0) 44.7% (39.0-53.0) Mean Corpuscular Volume 85fL (79-100) 85fL (79-100) Mean Corpuscular Hemoglobin 29pg (25-35) 29pg (25-35) Mean Corpuscular Hemoglobin Concent 34g/dL (31-37) 34g/dL (31-37) Red Cell Distribution Width 13.6% (11.5-14.5) 13.6% (11.5-14.5) Platelet Count 248x10^3/uL (140-400) 229x10^3/uL (140-400) Neutrophils (%) (Auto) 63% (31-73) Lymphocytes (%) (Auto) 28% (24-48) Monocytes (%) (Auto) 7% (0-9) Eosinophils (%) (Auto) 2% (0-3) Basophils (%) (Auto) 1% (0-3) Neutrophils # (Auto) 5.3x10^3uL (1.8-7.7) Lymphocytes # (Auto) 2.3x10^3/uL (1.0-4.8) Monocytes # (Auto) 0.6x10^3/uL (0.0-1.1) Eosinophils # (Auto) 0.2x10^3/uL (0.0-0.7) Basophils # (Auto) 0.1x10^3/uL (0.0-0.2) Prothrombin Time 12.1SEC (11.7-14.0) Prothromb Time International Ratio 1.0 (0.8-1.1) Sodium Level 142mmol/L (136-145) 143mmol/L (136-145) Potassium Level 3.8mmol/L (3.5-5.1) 3.5mmol/L (3.5-5.1) Chloride Level 102mmol/L (98-107) 104mmol/L (98-107) Carbon Dioxide Level 32mmol/L (21-32) 30mmol/L (21-32) Anion Gap 8 (6-14) 9 (6-14) Blood Urea Nitrogen 24mg/dL (8-26) 14mg/dL (8-26) Creatinine 1.2mg/dL (0.7-1.3) 0.9mg/dL (0.7-1.3) Estimated GFR (Cockcroft-Gault) 63.8 89.0 BUN/Creatinine Ratio 20 (6-20) Glucose Level 258mg/dL (70-99) 194mg/dL (70-99) Calcium Level 9.5mg/dL (8.5-10.1) 8.9mg/dL (8.5-10.1) Total Bilirubin 0.5mg/dL (0.2-1.0) Aspartate Amino Transf (AST/SGOT) 11U/L (15-37) Alanine Aminotransferase (ALT/SGPT) 24U/L (16-63) Alkaline Phosphatase 76U/L (46-116) Troponin I Quantitative 0.024ng/mL (0.000-0.055) 0.020ng/mL (0.000-0.055) Total Protein 7.5g/dL (6.4-8.2) Albumin 3.4g/dL (3.4-5.0) Albumin/Globulin Ratio 0.8 (1.0-1.7) Urine Collection Type Unknown Urine Color Yellow Urine Clarity Clear Urine pH 7.0 Urine Specific [place] 1.015 Urine Protein 100mg/dL (NEG-TRACE) Urine Glucose (UA) 250mg/dL (NEG) Urine Ketones (Stick) Negativemg/dL (NEG) Urine Blood Trace (NEG) Urine Nitrite Negative (NEG) Urine Bilirubin Negative (NEG) Urine Urobilinogen Dipstick 0.2mg/dL (0.2 mg/dL) Urine Leukocyte Esterase Moderate (NEG) Urine RBC 1-2/HPF (0-2) Urine WBC 20-40/HPF (0-4) Urine Squamous Epithelial Cells Occ/LPF Urine Bacteria 0/HPF (0-FEW) Urine Hyaline Casts Few/HPF Urine Mucus Slight/LPF Glucose (Fingerstick) 195mg/dL (70-99) Test 07/06/16 12:17 Glucose (Fingerstick) 192mg/dL (70-99) Laboratory Tests Test 07/05/16 19:25 07/05/16 21:25 07/06/16 07:30 07/06/16 08:10 White Blood Count 8.5x10^3/uL (4.0-11.0) 7.1x10^3/uL (4.0-11.0) Red Blood Count 5.53x10^6/uL (4.30-5.70) 5.23x10^6/uL (4.30-5.70) Hemoglobin 16.1g/dL (13.0-17.5) 15.0g/dL (13.0-17.5) Hematocrit 47.3% (39.0-53.0) 44.7% (39.0-53.0) Mean Corpuscular Volume 85fL (79-100) 85fL (79-100) Mean Corpuscular Hemoglobin 29pg (25-35) 29pg (25-35) Mean Corpuscular Hemoglobin Concent 34g/dL (31-37) 34g/dL (31-37) Red Cell Distribution Width 13.6% (11.5-14.5) 13.6% (11.5-14.5) Platelet Count 248x10^3/uL (140-400) 229x10^3/uL (140-400) Neutrophils (%) (Auto) 63% (31-73) Lymphocytes (%) (Auto) 28% (24-48) Monocytes (%) (Auto) 7% (0-9) Eosinophils (%) (Auto) 2% (0-3) Basophils (%) (Auto) 1% (0-3) Neutrophils # (Auto) 5.3x10^3uL (1.8-7.7) Lymphocytes # (Auto) 2.3x10^3/uL (1.0-4.8) Monocytes # (Auto) 0.6x10^3/uL (0.0-1.1) Eosinophils # (Auto) 0.2x10^3/uL (0.0-0.7) Basophils # (Auto) 0.1x10^3/uL (0.0-0.2) Prothrombin Time 12.1SEC (11.7-14.0) Prothromb Time International Ratio 1.0 (0.8-1.1) Sodium Level 142mmol/L (136-145) 143mmol/L (136-145) Potassium Level 3.8mmol/L (3.5-5.1) 3.5mmol/L (3.5-5.1) Chloride Level 102mmol/L (98-107) 104mmol/L (98-107) Carbon Dioxide Level 32mmol/L (21-32) 30mmol/L (21-32) Anion Gap 8 (6-14) 9 (6-14) Blood Urea Nitrogen 24mg/dL (8-26) 14mg/dL (8-26) Creatinine 1.2mg/dL (0.7-1.3) 0.9mg/dL (0.7-1.3) Estimated GFR (Cockcroft-Gault) 63.8 89.0 BUN/Creatinine Ratio 20 (6-20) Glucose Level 258mg/dL (70-99) 194mg/dL (70-99) Calcium Level 9.5mg/dL (8.5-10.1) 8.9mg/dL (8.5-10.1) Total Bilirubin 0.5mg/dL (0.2-1.0) Aspartate Amino Transf (AST/SGOT) 11U/L (15-37) Alanine Aminotransferase (ALT/SGPT) 24U/L (16-63) Alkaline Phosphatase 76U/L (46-116) Troponin I Quantitative 0.024ng/mL (0.000-0.055) 0.020ng/mL (0.000-0.055) Total Protein 7.5g/dL (6.4-8.2) Albumin 3.4g/dL (3.4-5.0) Albumin/Globulin Ratio 0.8 (1.0-1.7) Urine Collection Type Unknown Urine Color Yellow Urine Clarity Clear Urine pH 7.0 Urine Specific [place] 1.015 Urine Protein 100mg/dL (NEG-TRACE) Urine Glucose (UA) 250mg/dL (NEG) Urine Ketones (Stick) Negativemg/dL (NEG) Urine Blood Trace (NEG) Urine Nitrite Negative (NEG) Urine Bilirubin Negative (NEG) Urine Urobilinogen Dipstick 0.2mg/dL (0.2 mg/dL) Urine Leukocyte Esterase Moderate (NEG) Urine RBC 1-2/HPF (0-2) Urine WBC 20-40/HPF (0-4) Urine Squamous Epithelial Cells Occ/LPF Urine Bacteria 0/HPF (0-FEW) Urine Hyaline Casts Few/HPF Urine Mucus Slight/LPF Glucose (Fingerstick) 195mg/dL (70-99) Test 07/06/16 12:17 Glucose (Fingerstick) 192mg/dL (70-99) Assessment/Plan Assessment/Plan This patient comes in with symptoms suspicious for a CVA and I hypertensive emergency. I agree with a Cardene drip but he has been weaned and the patient's blood pressure is going back up. At this point I would give him 10 mg of amlodipine twice a day and would continue with the losartan 100 mg once a day and metoprolol 100 mg twice a day. I will get an echocardiogram and depending on the patient's symptoms as well as the blood pressure and the results of the echocardiogram will then make further recommendations. Thank you very much for asking me to participate in the care of this patient. JORGE A VAZQUEZ MD Jul 06, 2016 15:23
[2016-07-06] MEDS ORDERED: LABETALOL 20 MG/4 ML DISP.SYRIN. IVP PRN (18:30)
[2016-07-06] MEDS: AMLODIPINE BESYLATE 10 MG TABLET PO SCH (21:43)
[2016-07-07] VITALS (9 sets, daily range): BP systolic 112–170; BP diastolic 74–111
[2016-07-07] MEDS: hydrALAZINE 20 MG/ML VIAL. IVP PRN ×3 (04:38→10:58)
[2016-07-07] MEDS: METFORMIN 1,000 MG TABLET PO SCH ×2 (08:37→17:11)
[2016-07-07] MEDS: GLIMEPIRIDE 2 MG TABLET PO SCH (08:37)
[2016-07-07] MEDS: METOPROLOL TART IMMED RELEASE 50 MG TABLET PO SCH ×2 (08:37→20:30)
[2016-07-07] MEDS: OXYBUTYNIN CHLORIDE 5 MG TABLET PO SCH ×2 (08:37→20:27)
[2016-07-07] MEDS: AMLODIPINE BESYLATE 10 MG TABLET PO SCH ×2 (08:38→20:28)
[2016-07-07] MEDS: LOSARTAN POTASSIUM 50 MG TABLET. PO SCH (08:38)
[2016-07-07] MEDS: INSULIN ASPART 300 UNITS/3 ML INSULN.PEN SQ SCH ×3 (08:43→17:00)
--- NOTE | 2016-07-07 10:15 | PDOC ---
PROGRESS NOTES Subjective Subjective Patient is doing well this morning. He denies chest pain at this time. Had EF of 40% and mild PI on echocardiogram. Objective Objective Vital Signs Date Time Temp Pulse Resp B/P Pulse Ox O2 Delivery O2 Flow Rate FiO2 07/07/16 08:39 64 166/110 07/07/16 08:00 Room Air 07/07/16 07:20 18 98 07/07/16 03:05 97.9 97.9 Intake and Output 07/07/16 07:00 Intake Total 1280 ml Output Total 500 ml Balance 780 ml Intake Oral 1280 ml Output Urine Total 500 ml # Voids 2 Physical Exam Heart: Regular rate, Normal S1, Normal S2, No murmurs Lungs: Clear to auscultation Assessment Assessment Problems Medical Problems: (1) CVA (cerebral vascular accident) Status: Acute (2) Hypertensive urgency Status: Acute Plan Plan of Care 1. Hx of CVA 2. HTN Blood pressure still high but trending down. Continue Amlodipine, Losartan, and Metoprolol at current dose. Will continue to follow in care. Comment Review of Relevant I have reviewed the following items mary (where applicable) has been applied. Labs Laboratory Tests Test 07/05/16 19:25 07/05/16 21:25 07/06/16 00:30 07/06/16 07:30 White Blood Count 8.5x10^3/uL (4.0-11.0) 7.1x10^3/uL (4.0-11.0) Red Blood Count 5.53x10^6/uL (4.30-5.70) 5.23x10^6/uL (4.30-5.70) Hemoglobin 16.1g/dL (13.0-17.5) 15.0g/dL (13.0-17.5) Hematocrit 47.3% (39.0-53.0) 44.7% (39.0-53.0) Mean Corpuscular Volume 85fL (79-100) 85fL (79-100) Mean Corpuscular Hemoglobin 29pg (25-35) 29pg (25-35) Mean Corpuscular Hemoglobin Concent 34g/dL (31-37) 34g/dL (31-37) Red Cell Distribution Width 13.6% (11.5-14.5) 13.6% (11.5-14.5) Platelet Count 248x10^3/uL (140-400) 229x10^3/uL (140-400) Neutrophils (%) (Auto) 63% (31-73) Lymphocytes (%) (Auto) 28% (24-48) Monocytes (%) (Auto) 7% (0-9) Eosinophils (%) (Auto) 2% (0-3) Basophils (%) (Auto) 1% (0-3) Neutrophils # (Auto) 5.3x10^3uL (1.8-7.7) Lymphocytes # (Auto) 2.3x10^3/uL (1.0-4.8) Monocytes # (Auto) 0.6x10^3/uL (0.0-1.1) Eosinophils # (Auto) 0.2x10^3/uL (0.0-0.7) Basophils # (Auto) 0.1x10^3/uL (0.0-0.2) Prothrombin Time 12.1SEC (11.7-14.0) Prothromb Time International Ratio 1.0 (0.8-1.1) Sodium Level 142mmol/L (136-145) 143mmol/L (136-145) Potassium Level 3.8mmol/L (3.5-5.1) 3.5mmol/L (3.5-5.1) Chloride Level 102mmol/L (98-107) 104mmol/L (98-107) Carbon Dioxide Level 32mmol/L (21-32) 30mmol/L (21-32) Anion Gap 8 (6-14) 9 (6-14) Blood Urea Nitrogen 24mg/dL (8-26) 14mg/dL (8-26) Creatinine 1.2mg/dL (0.7-1.3) 0.9mg/dL (0.7-1.3) Estimated GFR (Cockcroft-Gault) 63.8 89.0 BUN/Creatinine Ratio 20 (6-20) Glucose Level 258mg/dL (70-99) 194mg/dL (70-99) Hemoglobin A1c 9.5% (4.8-5.6) Calcium Level 9.5mg/dL (8.5-10.1) 8.9mg/dL (8.5-10.1) Total Bilirubin 0.5mg/dL (0.2-1.0) Aspartate Amino Transf (AST/SGOT) 11U/L (15-37) Alanine Aminotransferase (ALT/SGPT) 24U/L (16-63) Alkaline Phosphatase 76U/L (46-116) Troponin I Quantitative 0.024ng/mL (0.000-0.055) 0.020ng/mL (0.000-0.055) Total Protein 7.5g/dL (6.4-8.2) Albumin 3.4g/dL (3.4-5.0) Albumin/Globulin Ratio 0.8 (1.0-1.7) Urine Collection Type Unknown Urine Color Yellow Urine Clarity Clear Urine pH 7.0 Urine Specific [place] 1.015 Urine Protein 100mg/dL (NEG-TRACE) Urine Glucose (UA) 250mg/dL (NEG) Urine Ketones (Stick) Negativemg/dL (NEG) Urine Blood Trace (NEG) Urine Nitrite Negative (NEG) Urine Bilirubin Negative (NEG) Urine Urobilinogen Dipstick 0.2mg/dL (0.2 mg/dL) Urine Leukocyte Esterase Moderate (NEG) Urine RBC 1-2/HPF (0-2) Urine WBC 20-40/HPF (0-4) Urine Squamous Epithelial Cells Occ/LPF Urine Bacteria 0/HPF (0-FEW) Urine Hyaline Casts Few/HPF Urine Mucus Slight/LPF Nasal Screen MRSA (PCR) Negative (Negative) Test 07/06/16 08:10 07/06/16 12:17 07/06/16 16:53 07/06/16 21:06 Glucose (Fingerstick) 195mg/dL (70-99) 192mg/dL (70-99) 138mg/dL (70-99) 160mg/dL (70-99) Test 07/07/16 07:39 Glucose (Fingerstick) 207mg/dL (70-99) Laboratory Tests Test 07/06/16 12:17 07/06/16 16:53 07/06/16 21:06 07/07/16 07:39 Glucose (Fingerstick) 192mg/dL (70-99) 138mg/dL (70-99) 160mg/dL (70-99) 207mg/dL (70-99) Medications Current Medications Sodium Chloride 1,000 ml @ 1,000 mls/hr Q1H IV Last administered on 07/05/16 20:07; Start 07/05/16 at 20:00; Stop 07/05/16 at 20:59; Status DC Nicardipine HCl/ Sodium Chloride (Cardene/Iv Sodium Chloride 0.9% 250ml) 270 ml @ 0 mls/hr 1X ONCE IV Last administered on 07/05/16 20:08; Start 07/05/16 at 19:45; Stop 07/05/16 at 19:49; Status DC Ondansetron HCl (Zofran) 4 mg PRN Q8HRS PRN IV NAUSEA/VOMITING; Start 07/05/16 at 21:15; Stop 07/05/16 at 22:18; Status DC Acetaminophen (Tylenol) 650 mg PRN Q4HRS PRN PO FEVER; Start 07/05/16 at 21:15 ; Stop 07/06/16 at 10:16; Status DC Ondansetron HCl (Zofran) 4 mg PRN Q6HRS PRN IV NAUSEA/VOMITING; Start 07/05/16 at 22:16 Acetaminophen/ Hydrocodone Bitart (Lortab 5/325) 1 tab PRN Q4HRS PRN PO MODERATE PAIN Last administered on 07/06/16 16:04; Start 07/05/16 at 22:30 Amlodipine Besylate (Norvasc) 10 mg DAILY PO Last administered on 07/06/16 09: 16; Start 07/06/16 at 09:00; Stop 07/06/16 at 13:52; Status DC Metformin HCl (Glucophage) 1,000 mg BIDWMEALS PO Last administered on 08:37; Start 07/06/16 at 08:00 Oxybutynin Chloride (Ditropan) 5 mg BID PO Last administered on 07/07/16 08:37 ; Start 07/06/16 at 09:00 Glimepiride (Amaryl) 4 mg DAILYWBKFT PO Last administered on 07/07/16 08:37; Start 07/06/16 at 08:00 Losartan Potassium (Cozaar) 100 mg DAILY PO Last administered on 07/07/16 08: 38; Start 07/06/16 at 09:00 Metoprolol Tartrate (Lopressor) 100 mg BID PO Last administered on 07/07/16 08 :37; Start 07/06/16 at 09:00 Insulin Aspart (Novolog) 0-9 UNITS TIDWMEALS SQ Last administered on 07/07/16 08:43; Start 07/06/16 at 08:00 Dextrose 12.5 gm 12.5 gm PRN Q15MIN PRN IV SEE COMMENTS; Start 07/05/16 at 22: 30 Nicardipine HCl/ Sodium Chloride (Cardene/Iv Sodium Chloride 0.9% 250ml) 270 ml @ 0 mls/hr CONT PRN IV SEE I/O RECORD; Start 07/06/16 at 00:30; Stop 07/07/16 at 09:41; Status DC Info (Do NOT chart on this placeholder) 1 each 1X ONCE MC ; Start 07/06/16 at 01:15; Stop 07/06/16 at 01:16; Status UNV Pneumococcal Polyvalent Vaccine (Do NOT chart on this placeholder) 1 each 1X ONCE MC ; Start 07/06/16 at 01:15; Stop 07/06/16 at 01:16; Status UNV Influenza Virus Vaccine Quadrival (Fluarix Quad 2997-4024 Syringe) 0.5 ml ONCE ONCE VAX IM Last administered on 07/06/16 11:53; Start 07/06/16 at 09:00; Stop 07/06/16 at 09:01; Status DC Pneumococcal Polyvalent Vaccine (Pneumovax 23) 0.5 ml ONCE ONCE VAX IM Last administered on 07/06/16 11:51; Start 07/06/16 at 09:00; Stop 07/06/16 at 09:01 ; Status DC Acetaminophen (Tylenol) 650 mg PRN Q6HRS PRN PO MILD PAIN / TEMP; Start at 10:15 Ondansetron HCl (Zofran) 4 mg PRN Q6HRS PRN IV NAUSEA/VOMITING; Start 07/06/16 at 10:15; Status UNV Amlodipine Besylate (Norvasc) 10 mg BID PO Last administered on 07/07/16 08:38 ; Start 07/06/16 at 21:00 Labetalol HCl (Normodyne) 10 mg PRN Q4HRS PRN IVP HYPERTENSION, SEE COMMENTS Last administered on 07/06/16 19:10; Start 07/06/16 at 18:30 Hydralazine HCl (Apresoline) 10 mg PRN Q4HRS PRN IVP ELEVATED BP, SEE COMMENTS Last administered on 07/07/16 08:39; Start 07/07/16 at 04:30 Ciprofloxacin (Cipro) 500 mg BID PO ; Start 07/07/16 at 09:45 Active Scripts Active Reported Cinnamon (Cinnamon Bark) 500 Mg Capsule 500 Mg PO Losartan Potassium 100 Mg Tablet 100 Mg PO DAILY Amlodipine Besylate 10 Mg Tablet 10 Mg PO DAILY Metformin Hcl 1,000 Mg Tablet 1 Tab PO BID Oxybutynin Chloride 5 Mg Tablet 1 Tab PO BID Metoprolol Tartrate 100 Mg Tablet 1 Tab PO BID Glimepiride 4 Mg Tablet 1 Tab PO DAILY Vitals/I & O Vital Sign - Last 24 Hours 07/06/16 07/06/16 07/06/16 07/06/16 10:57 12:00 12:00 12:58 Temp 98.7 98.7 Pulse 59 52 58 Resp 14 19 B/P 165/96 154/91 168/93 Pulse Ox 98 97 98 O2 Delivery Room Air Room Air Room Air Room Air 07/06/16 07/06/16 07/06/16 07/06/16 16:00 16:00 16:04 16:54 Temp 98.7 98.7 Pulse 59 66 Resp B/P 159/105 164/100 Pulse Ox 98 98 O2 Delivery Room Air Room Air Room Air Room Air 07/06/16 07/06/16 07/06/16 07/06/16 17:12 18:10 19:10 19:25 Pulse 71 61 62 Resp 20 20 B/P 172/108 172/108 155/88 O2 Delivery Room Air 07/06/16 07/06/16 07/06/16 07/06/16 20:20 21:00 21:43 21:44 Temp 97.9 97.9 Pulse 124 124 124 Resp 18 B/P 172/101 172/101 172/101 Pulse Ox 96 O2 Delivery Room Air Room Air 07/06/16 07/07/16 07/07/16 07/07/16 22:47 00:39 03:05 04:38 Temp 97.7 97.9 97.7 97.9 Pulse 116 58 69 69 Resp 18 B/P 154/97 169/110 169/110 Pulse Ox 98 97 O2 Delivery Room Air Room Air 07/07/16 07/07/16 07/07/16 07/07/16 07:20 08:00 08:37 08:38 Pulse 64 64 64 Resp 18 B/P 166/110 166/110 166/110 Pulse Ox 98 O2 Delivery Room Air Room Air 07/07/16 07/07/16 08:38 08:39 Pulse 64 64 B/P 166/110 166/110 Intake and Output 07/06/16 07/06/16 07/07/16 15:00 23:00 07:00 Intake Total 480 ml 560 ml 240 ml Output Total 500 ml Balance 480 ml 560 ml -260 ml JORGE A VAZQUEZ MD Jul 07, 2016 10:15
[2016-07-07] MEDS: CIPROFLOXACIN HCL 250 MG TABLET PO SCH ×2 (10:56→20:27)
--- NOTE | 2016-07-07 11:33 | CARD ---
APPROVED REPORT EXAM: Two-dimensional and M-mode echocardiogram with Doppler and color Doppler. Other Information Quality : GoodHR: 76bpm Rhythm : NSR INDICATION Hypertension/HCVD CVA, Embolic 2D DIMENSIONS RVDd2.6 (2.9-3.5cm)Left Atrium(2D)3.7 (1.6-4.0cm) IVSd1.4 (0.7-1.1cm)Aortic Root(2D)3.9 (2.0-3.7cm) LVDd4.7 (3.9-5.9cm)LVOT Diameter2.5 (1.8-2.4cm) PWd1.4 (0.7-1.1cm)LVDs3.8 (2.5-4.0cm) FS (%) 19.2 %SV41.1 ml LVEF(%)40.0 (>50%) Aortic Valve AoV Peak Fernando.130.2cm/sAoV VTI25.1cm AO Peak GR.6.8mmHgLVOT Peak Fernando.94.9cm/s AO Mean GR.4mmHgAVA (VMAX)3.70cm2 Mitral Valve MV E Hqeifwbx88.8cm/sMV E Peak Gr.2mmHg MV DECEL [id number] A Jtnyligx84.8cm/s MV E Mean Gr.1mmHgE/A Ratio0.9 MV A [id number] Pulmonary Valve PV Peak Qzajwdkl76.0cm/s Tricuspid Valve TR P. Ikszhlmb859gc/sTR Peak Gr.11mmHg Pulmonary Vein S1 Hwkauwrt24.2cm/sD2 Cswysrga21.0cm/s PVa [id number] LEFT VENTRICLE The left ventricle is normal size. There is moderate concentric left ventricular hypertrophy. Left ve ntricle systolic function is mildly impaired. The Ejection Fraction is 40%. There is mild global hypo kinesis of the left ventricle. Transmitral Doppler flow pattern is Grade I-abnormal relaxation patter n. No left ventricle thrombus noted on this study. RIGHT VENTRICLE The right ventricle is normal size. There is normal right ventricular wall thickness. The right ventr icular systolic function is normal. ATRIA The left atrium is severely dilated. The right atrium size is normal. The interatrial septum is intac t with no evidence for an atrial septal defect or patent foramen ovale as noted on 2-D or Doppler nahed ging. AORTIC VALVE The aortic valve is mildly thickened. Doppler and Color Flow revealed trace aortic regurgitation. The re is no significant aortic valvular stenosis. MITRAL VALVE The mitral valve leaflets are mildly thickened. There is no evidence of mitral valve prolapse. There is no mitral valve stenosis. Doppler and Color Flow revealed trace mitral regurgitation. TRICUSPID VALVE Doppler and Color Flow revealed trace tricuspid regurgitation. The pulmonary artery systolic pressure is estimated at 16 mmHg. There is no pulmonary hypertension. PULMONIC VALVE Doppler and Color Flow revealed mild pulmonic valvular regurgitation. GREAT VESSELS The aortic root is normal in size. The ascending aorta is normal in size. The pulmonary artery is nor mal. The IVC is normal in size and collapses >50% with inspiration. PERICARDIAL EFFUSION There is no evidence of significant pericardial effusion. Critical Notification Critical Value: No <Conclusion> Left ventricle systolic function is mildly impaired. The Ejection Fraction is 40%. There is moderate concentric left ventricular hypertrophy. Transmitral Doppler flow pattern is Grade I-abnormal relaxation pattern. The left atrium is severely dilated. The right atrium size is normal. Doppler and Color Flow revealed trace aortic regurgitation. Doppler and Color Flow revealed trace mitral regurgitation. Doppler and Color Flow revealed trace tricuspid regurgitation. The pulmonary artery systolic pressure is estimated at 16 mmHg. There is no pulmonary hypertension. Doppler and Color Flow revealed mild pulmonic valvular regurgitation. There is no evidence of significant pericardial effusion.
--- NOTE | 2016-07-07 12:28 | PDOC ---
PROGRESS NOTES Chief Complaint Chief Complaint 1. HTN urgency s/p nicardipine gtt 2. Hx CVA 3. UTI in a male History of Present Illness History of Present Illness Transferred out of ICU BP still high NO CP Planned for echo Off nicardipine gtt UA reviewed - uti - asymptomatic PLAn: Follow cards recs Needs PO adjustment of meds PRN labetolol inc to 20 q2 prn Start PO cipro Await echo Dw pt and RN Vitals Vitals Vital Signs Date Time Temp Pulse Resp B/P Pulse Ox O2 Delivery O2 Flow Rate FiO2 07/07/16 10:58 57 170/111 07/07/16 10:55 97.9 16 95 Room Air 97.9 Physical Exam Heart: Regular rate, Normal S1, Normal S2, No murmurs Labs LABS Laboratory Tests Test 07/06/16 16:53 07/06/16 21:06 07/07/16 07:39 Glucose (Fingerstick) 138mg/dL (70-99) 160mg/dL (70-99) 207mg/dL (70-99) Review of Systems Review of Systems limited latvian speaking Assessment and Plan Assessmemt and Plan Problems Medical Problems: (1) CVA (cerebral vascular accident) Status: Acute (2) Hypertensive urgency Status: Acute Problems: Comment Review of Relevant I have reviewed the following items mary (where applicable) has been applied. Labs Laboratory Tests Test 07/05/16 19:25 07/05/16 21:25 07/06/16 00:30 07/06/16 07:30 White Blood Count 8.5x10^3/uL (4.0-11.0) 7.1x10^3/uL (4.0-11.0) Red Blood Count 5.53x10^6/uL (4.30-5.70) 5.23x10^6/uL (4.30-5.70) Hemoglobin 16.1g/dL (13.0-17.5) 15.0g/dL (13.0-17.5) Hematocrit 47.3% (39.0-53.0) 44.7% (39.0-53.0) Mean Corpuscular Volume 85fL (79-100) 85fL (79-100) Mean Corpuscular Hemoglobin 29pg (25-35) 29pg (25-35) Mean Corpuscular Hemoglobin Concent 34g/dL (31-37) 34g/dL (31-37) Red Cell Distribution Width 13.6% (11.5-14.5) 13.6% (11.5-14.5) Platelet Count 248x10^3/uL (140-400) 229x10^3/uL (140-400) Neutrophils (%) (Auto) 63% (31-73) Lymphocytes (%) (Auto) 28% (24-48) Monocytes (%) (Auto) 7% (0-9) Eosinophils (%) (Auto) 2% (0-3) Basophils (%) (Auto) 1% (0-3) Neutrophils # (Auto) 5.3x10^3uL (1.8-7.7) Lymphocytes # (Auto) 2.3x10^3/uL (1.0-4.8) Monocytes # (Auto) 0.6x10^3/uL (0.0-1.1) Eosinophils # (Auto) 0.2x10^3/uL (0.0-0.7) Basophils # (Auto) 0.1x10^3/uL (0.0-0.2) Prothrombin Time 12.1SEC (11.7-14.0) Prothromb Time International Ratio 1.0 (0.8-1.1) Sodium Level 142mmol/L (136-145) 143mmol/L (136-145) Potassium Level 3.8mmol/L (3.5-5.1) 3.5mmol/L (3.5-5.1) Chloride Level 102mmol/L (98-107) 104mmol/L (98-107) Carbon Dioxide Level 32mmol/L (21-32) 30mmol/L (21-32) Anion Gap 8 (6-14) 9 (6-14) Blood Urea Nitrogen 24mg/dL (8-26) 14mg/dL (8-26) Creatinine 1.2mg/dL (0.7-1.3) 0.9mg/dL (0.7-1.3) Estimated GFR (Cockcroft-Gault) 63.8 89.0 BUN/Creatinine Ratio 20 (6-20) Glucose Level 258mg/dL (70-99) 194mg/dL (70-99) Hemoglobin A1c 9.5% (4.8-5.6) Calcium Level 9.5mg/dL (8.5-10.1) 8.9mg/dL (8.5-10.1) Total Bilirubin 0.5mg/dL (0.2-1.0) Aspartate Amino Transf (AST/SGOT) 11U/L (15-37) Alanine Aminotransferase (ALT/SGPT) 24U/L (16-63) Alkaline Phosphatase 76U/L (46-116) Troponin I Quantitative 0.024ng/mL (0.000-0.055) 0.020ng/mL (0.000-0.055) Total Protein 7.5g/dL (6.4-8.2) Albumin 3.4g/dL (3.4-5.0) Albumin/Globulin Ratio 0.8 (1.0-1.7) Urine Collection Type Unknown Urine Color Yellow Urine Clarity Clear Urine pH 7.0 Urine Specific [place] 1.015 Urine Protein 100mg/dL (NEG-TRACE) Urine Glucose (UA) 250mg/dL (NEG) Urine Ketones (Stick) Negativemg/dL (NEG) Urine Blood Trace (NEG) Urine Nitrite Negative (NEG) Urine Bilirubin Negative (NEG) Urine Urobilinogen Dipstick 0.2mg/dL (0.2 mg/dL) Urine Leukocyte Esterase Moderate (NEG) Urine RBC 1-2/HPF (0-2) Urine WBC 20-40/HPF (0-4) Urine Squamous Epithelial Cells Occ/LPF Urine Bacteria 0/HPF (0-FEW) Urine Hyaline Casts Few/HPF Urine Mucus Slight/LPF Nasal Screen MRSA (PCR) Negative (Negative) Test 07/06/16 08:10 07/06/16 12:17 07/06/16 16:53 07/06/16 21:06 Glucose (Fingerstick) 195mg/dL (70-99) 192mg/dL (70-99) 138mg/dL (70-99) 160mg/dL (70-99) Test 07/07/16 07:39 Glucose (Fingerstick) 207mg/dL (70-99) Laboratory Tests Test 07/06/16 16:53 07/06/16 21:06 07/07/16 07:39 Glucose (Fingerstick) 138mg/dL (70-99) 160mg/dL (70-99) 207mg/dL (70-99) Medications Current Medications Sodium Chloride 1,000 ml @ 1,000 mls/hr Q1H IV Last administered on 07/05/16 20:07; Start 07/05/16 at 20:00; Stop 07/05/16 at 20:59; Status DC Nicardipine HCl/ Sodium Chloride (Cardene/Iv Sodium Chloride 0.9% 250ml) 270 ml @ 0 mls/hr 1X ONCE IV Last administered on 07/05/16 20:08; Start 07/05/16 at 19:45; Stop 07/05/16 at 19:49; Status DC Ondansetron HCl (Zofran) 4 mg PRN Q8HRS PRN IV NAUSEA/VOMITING; Start 07/05/16 at 21:15; Stop 07/05/16 at 22:18; Status DC Acetaminophen (Tylenol) 650 mg PRN Q4HRS PRN PO FEVER; Start 07/05/16 at 21:15 ; Stop 07/06/16 at 10:16; Status DC Ondansetron HCl (Zofran) 4 mg PRN Q6HRS PRN IV NAUSEA/VOMITING; Start 07/05/16 at 22:16 Acetaminophen/ Hydrocodone Bitart (Lortab 5/325) 1 tab PRN Q4HRS PRN PO MODERATE PAIN Last administered on 07/06/16 16:04; Start 07/05/16 at 22:30 Amlodipine Besylate (Norvasc) 10 mg DAILY PO Last administered on 07/06/16 09: 16; Start 07/06/16 at 09:00; Stop 07/06/16 at 13:52; Status DC Metformin HCl (Glucophage) 1,000 mg BIDWMEALS PO Last administered on 08:37; Start 07/06/16 at 08:00 Oxybutynin Chloride (Ditropan) 5 mg BID PO Last administered on 07/07/16 08:37 ; Start 07/06/16 at 09:00 Glimepiride (Amaryl) 4 mg DAILYWBKFT PO Last administered on 07/07/16 08:37; Start 07/06/16 at 08:00 Losartan Potassium (Cozaar) 100 mg DAILY PO Last administered on 07/07/16 08: 38; Start 07/06/16 at 09:00 Metoprolol Tartrate (Lopressor) 100 mg BID PO Last administered on 07/07/16 08 :37; Start 07/06/16 at 09:00 Insulin Aspart (Novolog) 0-9 UNITS TIDWMEALS SQ Last administered on 07/07/16 08:43; Start 07/06/16 at 08:00 Dextrose 12.5 gm 12.5 gm PRN Q15MIN PRN IV SEE COMMENTS; Start 07/05/16 at 22: 30 Nicardipine HCl/ Sodium Chloride (Cardene/Iv Sodium Chloride 0.9% 250ml) 270 ml @ 0 mls/hr CONT PRN IV SEE I/O RECORD; Start 07/06/16 at 00:30; Stop 07/07/16 at 09:41; Status DC Info (Do NOT chart on this placeholder) 1 each 1X ONCE MC ; Start 07/06/16 at 01:15; Stop 07/06/16 at 01:16; Status UNV Pneumococcal Polyvalent Vaccine (Do NOT chart on this placeholder) 1 each 1X ONCE MC ; Start 07/06/16 at 01:15; Stop 07/06/16 at 01:16; Status UNV Influenza Virus Vaccine Quadrival (Fluarix Quad [id number] Syringe) 0.5 ml ONCE ONCE VAX IM Last administered on 07/06/16 11:53; Start 07/06/16 at 09:00; Stop 07/06/16 at 09:01; Status DC Pneumococcal Polyvalent Vaccine (Pneumovax 23) 0.5 ml ONCE ONCE VAX IM Last administered on 07/06/16 11:51; Start 07/06/16 at 09:00; Stop 07/06/16 at 09:01 ; Status DC Acetaminophen (Tylenol) 650 mg PRN Q6HRS PRN PO MILD PAIN / TEMP; Start at 10:15 Ondansetron HCl (Zofran) 4 mg PRN Q6HRS PRN IV NAUSEA/VOMITING; Start 07/06/16 at 10:15; Status UNV Amlodipine Besylate (Norvasc) 10 mg BID PO Last administered on 07/07/16 08:38 ; Start 07/06/16 at 21:00 Labetalol HCl (Normodyne) 10 mg PRN Q4HRS PRN IVP HYPERTENSION, SEE COMMENTS Last administered on 07/06/16 19:10; Start 07/06/16 at 18:30 Hydralazine HCl (Apresoline) 10 mg PRN Q4HRS PRN IVP ELEVATED BP, SEE COMMENTS Last administered on 07/07/16 10:58; Start 07/07/16 at 04:30 Ciprofloxacin (Cipro) 500 mg BID PO Last administered on 07/07/16 10:56; Start 07/07/16 at 09:45 Active Scripts Active Reported Cinnamon (Cinnamon Bark) 500 Mg Capsule 500 Mg PO Losartan Potassium 100 Mg Tablet 100 Mg PO DAILY Amlodipine Besylate 10 Mg Tablet 10 Mg PO DAILY Metformin Hcl 1,000 Mg Tablet 1 Tab PO BID Oxybutynin Chloride 5 Mg Tablet 1 Tab PO BID Metoprolol Tartrate 100 Mg Tablet 1 Tab PO BID Glimepiride 4 Mg Tablet 1 Tab PO DAILY Vitals/I & O Vital Sign - Last 24 Hours 07/06/16 07/06/16 07/06/16 07/06/16 12:58 16:00 16:00 16:04 Temp 98.7 98.7 Pulse 58 59 Resp B/P 168/93 159/105 Pulse Ox 98 98 O2 Delivery Room Air Room Air Room Air Room Air 07/06/16 07/06/16 07/06/16 07/06/16 16:54 17:12 18:10 19:10 Pulse 66 71 61 Resp 17 20 20 B/P 164/100 172/108 172/108 Pulse Ox 98 O2 Delivery Room Air Room Air 07/06/16 07/06/16 07/06/16 07/06/16 19:25 20:20 21:00 21:43 Temp 97.9 97.9 Pulse 62 124 124 Resp 18 B/P 155/88 172/101 172/101 Pulse Ox 96 O2 Delivery Room Air Room Air 07/06/16 07/06/16 07/07/16 07/07/16 21:44 22:47 00:39 03:05 Temp 97.7 97.9 97.7 97.9 Pulse 124 116 58 69 Resp 18 B/P 172/101 154/97 169/110 Pulse Ox 98 97 O2 Delivery Room Air Room Air 07/07/16 07/07/16 07/07/16 07/07/16 04:38 07:20 08:00 08:37 Pulse 69 64 64 Resp 18 B/P 169/110 166/110 166/110 Pulse Ox 98 O2 Delivery Room Air Room Air 07/07/16 07/07/16 07/07/16 07/07/16 08:38 08:38 08:39 10:55 Temp 97.9 97.9 Pulse 64 64 64 57 Resp 16 B/P 166/110 166/110 166/110 170/111 Pulse Ox 95 O2 Delivery Room Air 07/07/16 10:58 Pulse 57 B/P 170/111 Intake and Output 07/06/16 07/06/16 07/07/16 15:00 23:00 07:00 Intake Total 480 ml 560 ml 240 ml Output Total 500 ml Balance 480 ml 560 ml -260 ml CHARISSA ORO MD Jul 07, 2016 12:28
[2016-07-07] MEDS: LABETALOL 20 MG/4 ML DISP.SYRIN. IVP PRN ×2 (12:31→15:30)
--- NOTE | 2016-07-07 14:46 | PDOC1 ---
History and Physical Date of Admission Date of Admission 07/05/16 Identification/Chief Complaint Chief Complaint slurry speech, left side weakness, htn Problems: Source Source: Chart review History of Present Illness History of Present Illness this is H AND P for 07/06 51yo M , german speaking, h/o CVA with left side weakness, comes to ER for slurry speech ,generalized weakness, possible left side weakness. Head CT neg. He was found HTN urgency. required cardine drip in ICU. when i see pt, as per ICU nurse , pt has no left side weakness or slurry speech , pt has 4-5/5 bl symmetric strength as examed by me. off cardine dirip. Past Medical History Cardiovascular: HTN CENTRAL NERVOUS SYSTEM: CVA Endocrine: Diabetes, Other (obesity) Past Surgical History Past Surgical History: No pertinent history Family History Family History: Diabetes Social History Smoke: No ALCOHOL: none Drugs: None Current Problem List Problem List Problems Medical Problems: (1) CVA (cerebral vascular accident) Status: Acute (2) Hypertensive urgency Status: Acute Current Medications Current Medications Current Medications Medications (Trade) Dose Ordered Sig/Isaura Start Time Stop Time Status Last Admin Dose Admin Acetaminophen (Tylenol) 650 mg PRN Q6HRS PRN 07/06/16 10:15 Acetaminophen/ Hydrocodone Bitart (Lortab 5/325) 1 tab PRN Q4HRS PRN 07/05/16 22:30 07/06/16 16:04 1 TAB Amlodipine Besylate (Norvasc) 10 mg BID 07/06/16 21:00 07/07/16 08:38 10 MG Ciprofloxacin (Cipro) 500 mg BID 07/07/16 09:45 07/07/16 10:56 500 MG Dextrose 12.5 gm 12.5 gm PRN Q15MIN PRN 07/05/16 22:30 Glimepiride (Amaryl) 4 mg [id number] 07/06/16 08:00 07/07/16 08:37 4 MG Hydralazine HCl (Apresoline) 10 mg PRN Q4HRS PRN 07/07/16 04:30 07/07/16 10:58 10 MG Influenza Virus Vaccine Quadrival (Fluarix Quad [id number] Syringe) 0.5 ml ONCE ONCE 07/06/16 09:00 07/06/16 09:01 DC 07/06/16 11:53 0.5 ML Info (Do NOT chart on this placeholder) 1 each 1X ONCE 07/06/16 01:15 07/06/16 01:16 UNV Insulin Aspart (Novolog) 0-9 UNITS TIDWMEALS 07/06/16 08:00 07/07/16 12:35 4 UNITS Labetalol HCl (Normodyne) 20 mg PRN Q2HRS PRN 07/07/16 12:27 07/07/16 12:31 20 MG Losartan Potassium (Cozaar) 100 mg DAILY 07/06/16 09:00 07/07/16 08:38 100 MG Metformin HCl (Glucophage) 1,000 mg BIDWMEALS 07/06/16 08:00 07/07/16 08:37 1,000 MG Metoprolol Tartrate (Lopressor) 100 mg BID 07/06/16 09:00 07/07/16 08:37 100 MG Nicardipine HCl/ Sodium Chloride (Cardene/Iv Sodium Chloride 0.9% 250ml) 270 ml @ 0 mls/hr CONT PRN 07/06/16 00:30 07/07/16 09:41 DC Ondansetron HCl (Zofran) 4 mg PRN Q6HRS PRN 07/06/16 10:15 UNV Oxybutynin Chloride (Ditropan) 5 mg BID 07/06/16 09:00 07/07/16 08:37 5 MG Pneumococcal Polyvalent Vaccine (Do NOT chart on this placeholder) 1 each 1X ONCE 07/06/16 01:15 07/06/16 01:16 UNV Pneumococcal Polyvalent Vaccine (Pneumovax 23) 0.5 ml ONCE ONCE 07/06/16 09:00 07/06/16 09:01 DC 07/06/16 11:51 0.5 ML Sodium Chloride (Iv Sodium Chloride 0.9% 1000ml Bag) 1,000 ml @ 1,000 mls/hr Q1H 07/05/16 20:00 07/05/16 20:59 DC 07/05/16 20:07 1,000 MLS/HR Allergies Allergies Allergies Coded Allergies Type Severity Reaction Last Updated Verified No Known Drug Allergies 07/05/16 No ROS Review of System CONSTITUTIONAL: No fever or chills EYES: No recent changes SKIN: No rash or itching CARDIOVASCULAR: No chest pain, syncope, palpitations, or edema RESPIRATORY: No SOB or cough GASTROINTESTINAL: No nausea, vomiting or abdominal pain NEUROLOGICAL: No headaches or weakness ENDOCRINE: No cold or heat intolerance GENITOURINARY: No urgency or frequency of urination MUSCULOSKELETAL: No back pain or joint pain LYMPHATICS: No enlarged lymph nodes PSYCHIATRIC: No anxiety or depression Physical Exam Physical Exam GEN.: No apparent distress. Alert and oriented. HEENT: Head is normocephalic, atraumatic NECK: Supple. LUNGS: Clear to auscultation. HEART: RRR, S1, S2 present. Peripheral pulses intact ABDOMEN: Soft, nontender. Positive bowel sounds. EXTREMITIES: Without any cyanosis. NEUROLOGIC: Normal speech, normal tone PSYCHIATRIC: Normal affect, normal mood. SKIN: No ulcerations Vitals Vitals Vital Signs Date Time Temp Pulse Resp B/P Pulse Ox O2 Delivery O2 Flow Rate FiO2 07/07/16 13:51 77 112/74 07/07/16 10:55 97.9 16 95 Room Air 97.9 Labs Labs Laboratory Tests Test 07/05/16 19:25 07/05/16 21:25 07/06/16 00:30 07/06/16 07:30 White Blood Count 8.5x10^3/uL (4.0-11.0) 7.1x10^3/uL (4.0-11.0) Red Blood Count 5.53x10^6/uL (4.30-5.70) 5.23x10^6/uL (4.30-5.70) Hemoglobin 16.1g/dL (13.0-17.5) 15.0g/dL (13.0-17.5) Hematocrit 47.3% (39.0-53.0) 44.7% (39.0-53.0) Mean Corpuscular Volume 85fL (79-100) 85fL (79-100) Mean Corpuscular Hemoglobin 29pg (25-35) 29pg (25-35) Mean Corpuscular Hemoglobin Concent 34g/dL (31-37) 34g/dL (31-37) Red Cell Distribution Width 13.6% (11.5-14.5) 13.6% (11.5-14.5) Platelet Count 248x10^3/uL (140-400) 229x10^3/uL (140-400) Neutrophils (%) (Auto) 63% (31-73) Lymphocytes (%) (Auto) 28% (24-48) Monocytes (%) (Auto) 7% (0-9) Eosinophils (%) (Auto) 2% (0-3) Basophils (%) (Auto) 1% (0-3) Neutrophils # (Auto) 5.3x10^3uL (1.8-7.7) Lymphocytes # (Auto) 2.3x10^3/uL (1.0-4.8) Monocytes # (Auto) 0.6x10^3/uL (0.0-1.1) Eosinophils # (Auto) 0.2x10^3/uL (0.0-0.7) Basophils # (Auto) 0.1x10^3/uL (0.0-0.2) Prothrombin Time 12.1SEC (11.7-14.0) Prothromb Time International Ratio 1.0 (0.8-1.1) Sodium Level 142mmol/L (136-145) 143mmol/L (136-145) Potassium Level 3.8mmol/L (3.5-5.1) 3.5mmol/L (3.5-5.1) Chloride Level 102mmol/L (98-107) 104mmol/L (98-107) Carbon Dioxide Level 32mmol/L (21-32) 30mmol/L (21-32) Anion Gap 8 (6-14) 9 (6-14) Blood Urea Nitrogen 24mg/dL (8-26) 14mg/dL (8-26) Creatinine 1.2mg/dL (0.7-1.3) 0.9mg/dL (0.7-1.3) Estimated GFR (Cockcroft-Gault) 63.8 89.0 BUN/Creatinine Ratio 20 (6-20) Glucose Level 258mg/dL (70-99) 194mg/dL (70-99) Hemoglobin A1c 9.5% (4.8-5.6) Calcium Level 9.5mg/dL (8.5-10.1) 8.9mg/dL (8.5-10.1) Total Bilirubin 0.5mg/dL (0.2-1.0) Aspartate Amino Transf (AST/SGOT) 11U/L (15-37) Alanine Aminotransferase (ALT/SGPT) 24U/L (16-63) Alkaline Phosphatase 76U/L (46-116) Troponin I Quantitative 0.024ng/mL (0.000-0.055) 0.020ng/mL (0.000-0.055) Total Protein 7.5g/dL (6.4-8.2) Albumin 3.4g/dL (3.4-5.0) Albumin/Globulin Ratio 0.8 (1.0-1.7) Urine Collection Type Unknown Urine Color Yellow Urine Clarity Clear Urine pH 7.0 Urine Specific [place] 1.015 Urine Protein 100mg/dL (NEG-TRACE) Urine Glucose (UA) 250mg/dL (NEG) Urine Ketones (Stick) Negativemg/dL (NEG) Urine Blood Trace (NEG) Urine Nitrite Negative (NEG) Urine Bilirubin Negative (NEG) Urine Urobilinogen Dipstick 0.2mg/dL (0.2 mg/dL) Urine Leukocyte Esterase Moderate (NEG) Urine RBC 1-2/HPF (0-2) Urine WBC 20-40/HPF (0-4) Urine Squamous Epithelial Cells Occ/LPF Urine Bacteria 0/HPF (0-FEW) Urine Hyaline Casts Few/HPF Urine Mucus Slight/LPF Nasal Screen MRSA (PCR) Negative (Negative) Test 07/06/16 08:10 07/06/16 12:17 07/06/16 16:53 07/06/16 21:06 Glucose (Fingerstick) 195mg/dL (70-99) 192mg/dL (70-99) 138mg/dL (70-99) 160mg/dL (70-99) Test 07/07/16 07:39 07/07/16 12:04 Glucose (Fingerstick) 207mg/dL (70-99) 200mg/dL (70-99) Laboratory Tests Test 07/06/16 16:53 07/06/16 21:06 07/07/16 07:39 07/07/16 12:04 Glucose (Fingerstick) 138mg/dL (70-99) 160mg/dL (70-99) 207mg/dL (70-99) 200mg/dL (70-99) VTE Prophylaxis Ordered VTE Prophylaxis Devices: Yes VTE Pharmacological Prophylaxi: Yes Assessment/Plan Assessment/Plan 1. HTN emergency 2. possible slurry speech / left side weakness resolved 3. h/o CVA 4. dm2 plan: 1. fu with card, echo will be done by card 2. cont po meds ok to transfer out of icu SSI, cont DM2 po meds this is the H AND P for 07/06. BOB FREIRE MD Jul 07, 2016 14:46
[2016-07-08 03:45] VITALS: BP 148/89
[2016-07-08 07:00] VITALS: BP 164/95
[2016-07-08] MEDS: LOSARTAN POTASSIUM 50 MG TABLET. PO SCH (09:02)
[2016-07-08] MEDS: GLIMEPIRIDE 2 MG TABLET PO SCH (09:02)
[2016-07-08] MEDS: METFORMIN 1,000 MG TABLET PO SCH (09:02)
[2016-07-08] MEDS: CIPROFLOXACIN HCL 250 MG TABLET PO SCH (09:02)
[2016-07-08] MEDS: OXYBUTYNIN CHLORIDE 5 MG TABLET PO SCH (09:02)
[2016-07-08] MEDS: METOPROLOL TART IMMED RELEASE 50 MG TABLET PO SCH (09:03)
[2016-07-08] MEDS: AMLODIPINE BESYLATE 10 MG TABLET PO SCH (09:03)
[2016-07-08] MEDS: INSULIN ASPART 300 UNITS/3 ML INSULN.PEN SQ SCH ×2 (09:10→12:48)
[2016-07-08] MEDS ORDERED: CIPR500T94 PO (10:15)
[2016-07-08] MEDS ORDERED: AMLO10TA4 PO (10:15)
--- NOTE | 2016-07-08 10:22 | PDOC ---
PROGRESS NOTES Subjective Subjective Patient is denying chest pain this morning but is endorsing some mild shortness of breath. He has also had a small headache this morning and endorses some ongoing struggles with blurry vision. He is aware that his blood pressure has been going up and down and is concerned about this but keeping an optimistic attitude. Objective Objective Vital Signs Date Time Temp Pulse Resp B/P Pulse Ox O2 Delivery O2 Flow Rate FiO2 07/08/16 09:03 67 164/95 07/08/16 08:00 Room Air 07/08/16 07:00 98.5 17 96 98.5 Intake and Output 07/08/16 07:00 Intake Total 1620 ml Balance 1620 ml Intake Oral 1620 ml # Voids 7 Physical Exam Physical Exam No change from previous physical exam. Assessment Assessment Problems Medical Problems: (1) CVA (cerebral vascular accident) Status: Acute (2) Hypertensive urgency Status: Acute (3) Hypertensive urgency Status: Acute Plan Plan of Care Patient's blood pressure is staying between 150-160/85-95. Continue Amlodipine 20mg, Labetalol 20mg PRN, and Losartan 100mg. Patient is symptomatic but denies cardiac-related complaints at this time. Will continue to follow in patient's care. Comment Review of Relevant I have reviewed the following items mary (where applicable) has been applied. Labs Laboratory Tests Test 07/06/16 12:17 07/06/16 16:53 07/06/16 21:06 07/07/16 07:39 Glucose (Fingerstick) 192mg/dL (70-99) 138mg/dL (70-99) 160mg/dL (70-99) 207mg/dL (70-99) Test 07/07/16 12:04 07/07/16 16:56 07/07/16 22:00 07/08/16 07:44 Glucose (Fingerstick) 200mg/dL (70-99) 123mg/dL (70-99) 217mg/dL (70-99) 202mg/dL (70-99) Laboratory Tests Test 07/07/16 12:04 07/07/16 16:56 07/07/16 22:00 07/08/16 07:44 Glucose (Fingerstick) 200mg/dL (70-99) 123mg/dL (70-99) 217mg/dL (70-99) 202mg/dL (70-99) Medications Current Medications Sodium Chloride 1,000 ml @ 1,000 mls/hr Q1H IV Last administered on 07/05/16 20:07; Start 07/05/16 at 20:00; Stop 07/05/16 at 20:59; Status DC Nicardipine HCl/ Sodium Chloride (Cardene/Iv Sodium Chloride 0.9% 250ml) 270 ml @ 0 mls/hr 1X ONCE IV Last administered on 07/05/16 20:08; Start 07/05/16 at 19:45; Stop 07/05/16 at 19:49; Status DC Ondansetron HCl (Zofran) 4 mg PRN Q8HRS PRN IV NAUSEA/VOMITING; Start 07/05/16 at 21:15; Stop 07/05/16 at 22:18; Status DC Acetaminophen (Tylenol) 650 mg PRN Q4HRS PRN PO FEVER; Start 07/05/16 at 21:15 ; Stop 07/06/16 at 10:16; Status DC Ondansetron HCl (Zofran) 4 mg PRN Q6HRS PRN IV NAUSEA/VOMITING; Start 07/05/16 at 22:16 Acetaminophen/ Hydrocodone Bitart (Lortab 5/325) 1 tab PRN Q4HRS PRN PO MODERATE PAIN Last administered on 07/06/16 16:04; Start 07/05/16 at 22:30 Amlodipine Besylate (Norvasc) 10 mg DAILY PO Last administered on 07/06/16 09: 16; Start 07/06/16 at 09:00; Stop 07/06/16 at 13:52; Status DC Metformin HCl (Glucophage) 1,000 mg BIDWMEALS PO Last administered on 09:02; Start 07/06/16 at 08:00 Oxybutynin Chloride (Ditropan) 5 mg BID PO Last administered on 07/08/16 09:02 ; Start 07/06/16 at 09:00 Glimepiride (Amaryl) 4 mg DAILYWBKFT PO Last administered on 07/08/16 09:02; Start 07/06/16 at 08:00 Losartan Potassium (Cozaar) 100 mg DAILY PO Last administered on 07/08/16 09: 02; Start 07/06/16 at 09:00 Metoprolol Tartrate (Lopressor) 100 mg BID PO Last administered on 07/08/16 09 :03; Start 07/06/16 at 09:00 Insulin Aspart (Novolog) 0-9 UNITS TIDWMEALS SQ Last administered on 07/08/16 09:10; Start 07/06/16 at 08:00 Dextrose 12.5 gm 12.5 gm PRN Q15MIN PRN IV SEE COMMENTS; Start 07/05/16 at 22: 30 Nicardipine HCl/ Sodium Chloride (Cardene/Iv Sodium Chloride 0.9% 250ml) 270 ml @ 0 mls/hr CONT PRN IV SEE I/O RECORD; Start 07/06/16 at 00:30; Stop 07/07/16 at 09:41; Status DC Info (Do NOT chart on this placeholder) 1 each 1X ONCE MC ; Start 07/06/16 at 01:15; Stop 07/06/16 at 01:16; Status UNV Pneumococcal Polyvalent Vaccine (Do NOT chart on this placeholder) 1 each 1X ONCE MC ; Start 07/06/16 at 01:15; Stop 07/06/16 at 01:16; Status UNV Influenza Virus Vaccine Quadrival (Fluarix Quad [id number] Syringe) 0.5 ml ONCE ONCE VAX IM Last administered on 07/06/16 11:53; Start 07/06/16 at 09:00; Stop 07/06/16 at 09:01; Status DC Pneumococcal Polyvalent Vaccine (Pneumovax 23) 0.5 ml ONCE ONCE VAX IM Last administered on 07/06/16 11:51; Start 07/06/16 at 09:00; Stop 07/06/16 at 09:01 ; Status DC Acetaminophen (Tylenol) 650 mg PRN Q6HRS PRN PO MILD PAIN / TEMP Last administered on 07/07/16 17:12; Start 07/06/16 at 10:15 Ondansetron HCl (Zofran) 4 mg PRN Q6HRS PRN IV NAUSEA/VOMITING; Start 07/06/16 at 10:15; Status UNV Amlodipine Besylate (Norvasc) 10 mg BID PO Last administered on 07/07/16 08:38 ; Start 07/06/16 at 21:00; Stop 07/07/16 at 17:04; Status DC Labetalol HCl (Normodyne) 10 mg PRN Q4HRS PRN IVP HYPERTENSION, SEE COMMENTS Last administered on 07/06/16 19:10; Start 07/06/16 at 18:30; Stop 07/07/16 at 12:28; Status DC Hydralazine HCl (Apresoline) 10 mg PRN Q4HRS PRN IVP ELEVATED BP, SEE COMMENTS Last administered on 07/07/16 10:58; Start 07/07/16 at 04:30 Ciprofloxacin (Cipro) 500 mg BID PO Last administered on 07/08/16 09:02; Start 07/07/16 at 09:45 Labetalol HCl (Normodyne) 20 mg PRN Q2HRS PRN IVP HYPERTENSION, SEE COMMENTS Last administered on 07/07/16 15:30; Start 07/07/16 at 12:27 Amlodipine Besylate (Norvasc) 20 mg BID PO Last administered on 07/08/16 09:03 ; Start 07/07/16 at 21:00 Active Scripts Active Reported Cinnamon (Cinnamon Bark) 500 Mg Capsule 500 Mg PO Losartan Potassium 100 Mg Tablet 100 Mg PO DAILY Amlodipine Besylate 10 Mg Tablet 10 Mg PO DAILY Metformin Hcl 1,000 Mg Tablet 1 Tab PO BID Oxybutynin Chloride 5 Mg Tablet 1 Tab PO BID Metoprolol Tartrate 100 Mg Tablet 1 Tab PO BID Glimepiride 4 Mg Tablet 1 Tab PO DAILY Vitals/I & O Vital Sign - Last 24 Hours 07/07/16 07/07/16 07/07/16 07/07/16 10:55 10:58 12:31 13:05 Temp 97.9 97.9 Pulse 57 57 65 Resp 16 B/P 170/111 170/111 169/105 165/105 Pulse Ox 95 O2 Delivery Room Air 07/07/16 07/07/16 07/07/16 07/07/16 13:51 15:05 15:30 16:59 Temp 97.5 97.5 Pulse 77 70 70 68 Resp 18 B/P 112/74 165/101 165/101 149/99 Pulse Ox 100 O2 Delivery Room Air 07/07/16 07/07/16 07/07/16 07/07/16 19:30 20:00 20:28 20:30 Temp 97.9 97.9 Pulse 68 Resp 18 B/P 154/96 154/96 154/96 Pulse Ox 97 O2 Delivery Room Air Room Air 07/07/16 07/08/16 07/08/16 07/08/16 23:40 03:45 07:00 08:00 Temp 98.1 98.4 98.5 98.1 98.4 98.5 Pulse 70 67 67 Resp B/P 155/103 148/89 164/95 Pulse Ox 96 94 96 O2 Delivery Room Air Room Air Room Air Room Air 07/08/16 07/08/16 07/08/16 09:02 09:03 09:03 Pulse 67 67 67 B/P 164/95 164/95 164/95 Intake and Output 07/07/16 07/07/16 07/08/16 15:00 23:00 07:00 Intake Total 500 ml 1020 ml 100 ml Balance 500 ml 1020 ml 100 ml JORGE A VAZQUEZ MD Jul 08, 2016 10:22
[2016-07-08 11:00] VITALS: BP 154/88
--- NOTE | 2016-07-08 14:08 | PDOC3 ---
Discharge Summary Visit Information Date of Admission: Jul 05, 2016 Date of Discharge: Jul 08, 2016 Admitting Diagnosis Comment: 1. HTN urgency s/p nicardipine gtt 2. Hx CVA 3. UTI in a male Final Diagnosis Problems Medical Problems: (1) CVA (cerebral vascular accident) Status: Acute (2) Hypertensive urgency Status: Acute (3) Hypertensive urgency Status: Acute Brief Hospital Course Allergies Allergies Coded Allergies Type Severity Reaction Last Updated Verified No Known Drug Allergies 07/05/16 No Vital Signs Vital Signs Date Time Temp Pulse Resp B/P Pulse Ox O2 Delivery O2 Flow Rate FiO2 07/08/16 11:00 98.7 62 18 154/88 95 Room Air 98.7 Lab Results Laboratory Tests Test 07/06/16 16:53 07/06/16 21:06 07/07/16 07:39 07/07/16 12:04 Glucose (Fingerstick) 138mg/dL (70-99) 160mg/dL (70-99) 207mg/dL (70-99) 200mg/dL (70-99) Test 07/07/16 16:56 07/07/16 22:00 07/08/16 07:44 07/08/16 12:14 Glucose (Fingerstick) 123mg/dL (70-99) 217mg/dL (70-99) 202mg/dL (70-99) 177mg/dL (70-99) Laboratory Tests Test 07/07/16 16:56 07/07/16 22:00 07/08/16 07:44 07/08/16 12:14 Glucose (Fingerstick) 123mg/dL (70-99) 217mg/dL (70-99) 202mg/dL (70-99) 177mg/dL (70-99) Brief Hospital Course Mr. Arauz is a 51 old [ male with limited latvian admitted for hTN urgency to ICU on nicardipine gtt, PT co managed with DR. Christie, needed to inc meds/started new anti hypertensive See mAR Pt seen and examined Proc: echo; ok Incidental UTI on UA - I have Rxd cipro T Discharge Information Condition at Discharge: Improved, Stable Disposition/Orders: D/C to Home Scheduled Amlodipine Besylate (Amlodipine Besylate) 10 MG PO DAILY (Reported) Glimepiride (Glimepiride) 1 TAB PO DAILY (Reported) Losartan Potassium (Losartan Potassium) 100 MG PO DAILY (Reported) Metformin Hcl (Metformin Hcl) 1 TAB PO BID (Reported) Metoprolol Tartrate (Metoprolol Tartrate) 1 TAB PO BID (Reported) Oxybutynin Chloride (Oxybutynin Chloride) 1 TAB PO BID (Reported) Miscellaneous Medications Cinnamon Bark (Cinnamon) 500 MG PO (Reported) CHARISSA ORO MD Jul 08, 2016 14:08
[2016-07-08 15:00] VITALS: BP 147/95
== END 2016-07-08 17:20 | disposition home or self-care (01) | DRG 305 ==
LOC: ER 19:14 → 1 WEST ICU 21:13 → 6 SOUTH 07-06 19:38
PROVIDERS: ADMIT Internal Medicine; ATTEND Internal Medicine
DX: I16.0 Hypertensive urgency (principal); N39.0 Urinary tract infection, site not specified; I16.1 Hypertensive emergency; E11.9 Type 2 diabetes mellitus without complications; E66.9 Obesity, unspecified; H53.8 Other visual disturbances; I10 Essential (primary) hypertension; Z83.3 Family history of diabetes mellitus; Z86.73 Personal history of transient ischemic attack (TIA), and cerebral infarction without residual deficits; Z68.38 Body mass index [BMI] 38.0-38.9, adult
CPT/HCPCS: 36415; 70450; 71010; 80048; 80053; 81001; 82947; 83036; 84484; 85027; 85610; 87641; 90686; 90732; 93005; 93306; 96365; 96366; J0360; J1815; J3490; J7030; J7050; 99291-25

== ENCOUNTER 2016-07-15 12:50 | Inpatient (IN) | payer SELFPAY ==
[~2016-07-15] VITALS: Ht 175.3 cm; Wt 131.5 kg
[~2016-07-15 12:50] MED LIST: AMLO10TA2 PO; AMLO10TA4 PO; CINN500C PO; CIPR500T94 PO; GLIM4TAB2 PO; LOSA100T6 PO; METF10002 PO; METO100T2 PO; OXYB5TAB7 PO
--- NOTE | 2016-07-15 13:37 | PHYS DOC ---
Past Medical History Past Medical History: CVA, Diabetes-Type II, Hypertension Past Surgical History: No Surgical History Alcohol Use: None Drug Use: None Adult General Chief Complaint Chief Complaint: ALTERED MENTAL STATUS HPI HPI Patient is a 51 year old female who presents with altered mental status. 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 Patient reportedly had episode of shaking and unresponsiveness earlier today lasted a matter of minutes and during which he bit his tongue. He was confused afterwards. On arrival to the ED he says he is feeling a little bit better. No history of similar episodes or seizures. No other acute complaints. Review of Systems Review of Systems Pery bystander episode of shaking and unresponsiveness Constitutional: Denies fever or chills Eyes: Denies change in visual acuity or eye pain HENT: Denies nasal congestion or sore throat Respiratory: Denies cough or shortness of breath Cardiovascular: Denies chest pain GI: Denies abdominal pain, nausea, vomiting, bloody stools or diarrhea : Denies dysuria or hematuria Musculoskeletal: Denies back pain or joint pain Integument: Denies rash or skin lesions Neurologic: Confusion. Denies headache, focal weakness or sensory changes Current Medications Current Medications Current Medications Medications (Trade) Dose Ordered Sig/Isaura Start Time Stop Time Status Last Admin Dose Admin Sodium Chloride (Iv Sodium Chloride 0.9% 500ml Bag) 500 ml @ 500 mls/hr 1X ONCE 07/15/16 13:45 07/15/16 14:44 DC 07/15/16 13:47 500 MLS/HR Allergies Allergies Allergies Coded Allergies Type Severity Reaction Last Updated Verified No Known Drug Allergies 07/05/16 No Physical Exam Physical Exam Constitutional: Well developed, well nourished, no acute distress, non-toxic appearance HENT: Normocephalic, bilateral external ears normal; minor laceration to tongue Eyes: PERRL, EOMI, conjunctiva normal, no discharge Neck: Normal range of motion, no stridor Cardiovascular: Heart rate normal, regular rhythm, no murmur Lungs & Thorax: Bilateral breath sounds clear to auscultation Abdomen: Bowel sounds normal, soft, non-distended, no TTP Skin: Warm, dry, no erythema, no rash Extremities: No obvious deformity, no edema Neurologic: Alert and oriented X 3, GCS 15, CN II-XII grossly intact except for baseline L facial droop at corner of mouth, strength intact and symmetrical throughout, sensation to light touch intact throughout, no dystaxia noted Current Patient Data Vital Signs Vital Signs Date Time Temp Pulse Resp B/P Pulse Ox O2 Delivery O2 Flow Rate FiO2 07/15/16 14:09 69 18 142/85 97 07/15/16 13:15 98.3 Room Air 98.3 Lab Values Laboratory Tests Test 07/15/16 13:26 07/15/16 13:40 07/15/16 14:25 07/15/16 14:45 White Blood Count 9.6x10^3/uL (4.0-11.0) Red Blood Count 5.87x10^6/uL (4.30-5.70) H Hemoglobin 17.0g/dL (13.0-17.5) Hematocrit 49.1% (39.0-53.0) Mean Corpuscular Volume 84fL (79-100) Mean Corpuscular Hemoglobin 29pg (25-35) Mean Corpuscular Hemoglobin Concent 35g/dL (31-37) Red Cell Distribution Width 13.4% (11.5-14.5) Platelet Count 312x10^3/uL (140-400) Neutrophils (%) (Auto) 67% (31-73) Lymphocytes (%) (Auto) 24% (24-48) Monocytes (%) (Auto) 6% (0-9) Eosinophils (%) (Auto) 2% (0-3) Basophils (%) (Auto) 1% (0-3) Neutrophils # (Auto) 6.4x10^3uL (1.8-7.7) Lymphocytes # (Auto) 2.3x10^3/uL (1.0-4.8) Monocytes # (Auto) 0.5x10^3/uL (0.0-1.1) Eosinophils # (Auto) 0.2x10^3/uL (0.0-0.7) Basophils # (Auto) 0.1x10^3/uL (0.0-0.2) Sodium Level 138mmol/L (136-145) Potassium Level 4.1mmol/L (3.5-5.1) Chloride Level 99mmol/L (98-107) Carbon Dioxide Level 28mmol/L (21-32) Anion Gap 11 (6-14) Blood Urea Nitrogen 22mg/dL (8-26) Creatinine 1.2mg/dL (0.7-1.3) Estimated GFR (Cockcroft-Gault) 63.8 BUN/Creatinine Ratio 18 (6-20) Glucose Level 323mg/dL (70-99) H Calcium Level 9.7mg/dL (8.5-10.1) Magnesium Level 1.7mg/dL (1.8-2.4) L Total Bilirubin 0.5mg/dL (0.2-1.0) Aspartate Amino Transferase (AST) 13U/L (15-37) L Alanine Aminotransferase (ALT) 25U/L (16-63) Alkaline Phosphatase 81U/L (46-116) Total Protein 8.2g/dL (6.4-8.2) Albumin 3.8g/dL (3.4-5.0) Albumin/Globulin Ratio 0.9 (1.0-1.7) L Lactic Acid Level 4.0mmol/L (0.4-2.0) *H 2.7mmol/L (0.4-2.0) H Urine Collection Type Unknown Urine Color Yellow Urine Clarity Clear Urine pH 6.0 Urine Specific [place] >=1.030 Urine Protein >=300mg/dL (NEG-TRACE) Urine Glucose (UA) >=1000mg/dL (NEG) Urine Ketones (Stick) Negativemg/dL (NEG) Urine Blood Trace (NEG) Urine Nitrite Positive (NEG) Urine Bilirubin Negative (NEG) Urine Urobilinogen Dipstick 0.2mg/dL (0.2 mg/dL) Urine Leukocyte Esterase Negative (NEG) Urine RBC Occ/HPF (0-2) Urine WBC 11-20/HPF (0-4) Urine Squamous Epithelial Cells Occ/LPF Urine Bacteria Many/HPF (0-FEW) Urine Hyaline Casts Few/HPF Urine Mucus Mod/LPF Urine Opiates Screen Neg (NEG) Urine Methadone Screen Neg (NEG) Urine Barbiturates Neg (NEG) Urine Phencyclidine Screen Neg (NEG) Urine Amphetamine/Methamphetamine Neg (NEG) Urine Benzodiazepines Screen Neg (NEG) Urine Cocaine Screen Neg (NEG) Urine Cannabinoids Screen Neg (NEG) Urine Ethyl Alcohol Neg (NEG) Laboratory Tests 07/15/16 13:26 Laboratory Tests 07/15/16 13:26 EKG EKG EKG (my read): sinus rhythm, rate 71, borderline LAD, intervals wnl, nonspecific ST changes Radiology/Procedures Radiology/Procedures CXR: Impression: No acute cardiopulmonary process is detected. CT head: Impression: 1. No acute intracranial process detected. 2. Mild age-related atrophy and an area of encephalomalacia seen in the right frontal region. Course & Med Decision Making Course & Med Decision Making Pertinent Labs and Imaging studies reviewed. (See chart for details) Patient is 51-year-old male who presents with altered mental status. Description of the event today sounds like seizure, patient does not have history of this. Will check EKG, chest x-ray, labs, CT head. IV fluids ordered. EKG and imaging results as above. Labs notable for elevated lactic acid. UA consistent with UTI. Discussed results with patient and visitors. Additional IV fluids and dose of Rocephin ordered. Discussed with Dr. Dominguez, will admit under his care for further evaluation and treatment. Dragon Disclaimer Dragon Disclaimer This electronic medical record was generated, in whole or in part, using a voice recognition dictation system. Departure Departure Impression: Primary Impression: Altered mental status Disposition: ADMITTED INPATIENT Admitting Physician: Qamar Dominguez Condition: STABLE Referrals: UNKNOWN PCP NAME (PCP) ENRIQUE PEREZ MD Jul 15, 2016 13:37
--- NOTE | 2016-07-15 13:41 | EKG ---
[facility] [address] [place] [address] Test Date: 2016-07-15 Test Time: 12:49:12 Pat Name: FLORIDALMA NG Department: Room: Gender: M [employer]: : 1965 Requested By: ENRIQUE PEREZ Order Number: [id number] Reading MD: Dheeraj Red Measurements Intervals [place] Rate: 71 P: 31 HI: 178 QRS: -8 QRSD: 112 T: 15 QT: 396 QTc: 435 Interpretive Statements SINUS RHYTHM LEFT ATRIAL ABNORMALITY LEFTWARD AXIS QRS(T) CONTOUR ABNORMALITY CONSISTENT WITH INFERIOR INFARCT PROBABLY OLD RI6.01 Unconfirmed report No previous ECG available for comparison Electronically Signed On 07-21-2016 10:53:41 VISION REHABILITATION THERAPIST by Dheeraj Red
[2016-07-15] MEDS ORDERED: IV NORMAL SALINE 500ML BAG 500 ML IV ONE (13:45)
[2016-07-15 13:59] LABS: BASO # 0.1 x10^3/uL (0.0-0.2); BASO % 1 % (0-3); EOS % 2 % (0-3); HEMATOCRIT 49.1 % (39.0-53.0); LYMPH # 2.3 x10^3/uL (1.0-4.8); LYMPH % 24 % (24-48); MEAN CORPUSCULAR HEMOGLOBIN 29 pg (25-35); MEAN CORPUSCULAR HGB CONC 35 g/dL (31-37); MEAN CORPUSCULAR VOLUME 84 fL (79-100); MONO % 6 % (0-9); NEUT % 67 % (31-73); PLATELET COUNT 312 x10^3/uL (140-400); RED BLOOD COUNT 5.87 x10^6/uL (4.30-5.70); RED CELL DISTRIBUTION WIDTH 13.4 % (11.5-14.5); WHITE BLOOD COUNT 9.6 x10^3/uL (4.0-11.0)
[2016-07-15 14:03] LABS: CALCIUM 9.7 mg/dL (8.5-10.1); CREATININE 1.2 mg/dL (0.7-1.3); GFR 63.8; POTASSIUM 4.1 mmol/L (3.5-5.1)
[2016-07-15 14:08] LABS: ALBUMIN 3.8 g/dL (3.4-5.0); ALBUMIN/GLOBULIN RATIO 0.9 (1.0-1.7); MAGNESIUM 1.7 mg/dL (1.8-2.4); TOTAL BILIRUBIN 0.5 mg/dL (0.2-1.0); TOTAL PROTEIN 8.2 g/dL (6.4-8.2)
--- NOTE | 2016-07-15 14:33 | RAD ---
Exam performed: CT scan of the head without contrast. Date of Service: 07/15/16. Comparison: 07/05/16. Clinical History: Seizure, history of stroke. Technique: Helical acquisitions are obtained from the foramen magnum to the vertex without intravenous administration of contrast. Findings: There is an area of encephalomalacia in the right frontal region. There is also a infarct in the right caudate nucleus. Mild prominence of cortical sulci and ventricular system is noted consistent with mild atrophy. The ventricles are midline without evidence of dilatation. Normal reyes-white differentiation is maintained. There is no extra axial fluid collection, intraparenchymal hemorrhage or mass lesion. The visualized portions of the orbits, paranasal sinuses and the mastoid air cells appear clear. The calvarium is intact. Impression: 1. No acute intracranial process detected. 2. Mild age-related atrophy and an area of encephalomalacia seen in the right frontal region. PQRS Compliance Statement: One or more of the following individualized dose reduction techniques were utilized for this examination: 1. Automated exposure control 2. Adjustment of the mA and/or kV according to patient size 3. Use of iterative reconstruction technique
--- NOTE | 2016-07-15 14:33 | RAD ---
Exam performed: One view chest. Indication: AMS; unable to stand Date of Service: 07/15/2016 4:03 PM Comparison: 07/05/16. Single AP upright portable view chest findings: Cardiomediastinal silhouette is within limits of normal. No acute infiltrates, effusion or pneumothorax is detected. The bony structures are normal. Impression: No acute cardiopulmonary process is detected.
[2016-07-15 14:40] LABS: BILIRUBIN,URINE NEGATIVE (NEG); GLUCOSE,URINE >=1000 mg/dL (NEG); NITRITE,URINE POSITIVE (NEG); PROTEIN,URINE >=300 mg/dL (NEG-TRACE); UROBILINOGEN,URINE 0.2 mg/dL (0.2 mg/dL)
[2016-07-15 14:44] LABS: BARBITURATES NEG (NEG); BENZODIAZEPINES NEG (NEG); CANNABINOIDS NEG (NEG); COCAINE NEG (NEG); ETHANOL, URINE NEG (NEG); METHADONE NEG (NEG); OPIATES NEG (NEG); PHENCYCLIDINE NEG (NEG)
[2016-07-15 14:54] LABS: BACTERIA,URINE MANY /HPF (0-FEW); RBC,URINE OCC /HPF (0-2)
[2016-07-15 14:55] LABS: SQUAMOUS EPITHELIAL CELL,UR OCC /LPF
[2016-07-15] MEDS ORDERED: ONDANSETRON PF 4 MG/2 ML VIAL. IV PRN ×2 (15:15→18:30)
[2016-07-15] MEDS ORDERED: ACETAMINOPHEN 325 MG TABLET. PO PRN ×2 (15:15→18:30)
[2016-07-15] MEDS ORDERED: MORPHINE SULFATE 2 MG/ML DISP.SYRIN. IV PRN (15:15)
[2016-07-15] MEDS ORDERED: IV NORMAL SALINE 1000ML BAG 1,000 ML IV ONE (15:15)
[2016-07-15] MEDS ORDERED: DEXTROSE 50% 25 GM / 50ML DISP.SYRIN. IV PRN ×2 (15:15→19:00)
[2016-07-15] MEDS ORDERED: INSULIN ASPART 300 UNITS/3 ML INSULN.PEN SQ SCH (16:00)
--- NOTE | 2016-07-15 16:32 | ACF ---
Admission Forms Criteria MENTAL STATUS CHANGE Clinical Indications for Inpatient Care (Place 'X' for any and all applicable criteria): Ongoing inpatient care may be needed for ANY ONE of the following(1)(2)(3)(5)(6) : [X]I. Suspected serious etiology (eg, medical disorder, DISPENSING AUDIOLOGIST event) of mental status change [ ]II. Danger to self or others not manageable at lower level of care [ ]III. Grave disability (eg, inability to perform self care necessary at lower level of care) [ ]IV. Agitation or inappropriate behavior interfering with care for primary condition (eg, attempting to discontinue lines or drains prematurely, unable to cooperate with respiratory care) [ ]V. Delirium [A] [D][E] as described by ANY ONE of the following(26): [ ]a) Delirium due to alcohol or sedative [F] withdrawal [ ]b) Delirium of uncertain etiology that has not responded to appropriate empiric treatment [ ]c) Delirium that prevents performance of a life-sustaining function (eg, feeding or hydrating oneself) [ ]. General contraindications and/or Inappropriate clinical situations for Observational Care in patients with Mental Status Change, when ANY ONE of the following is required: [ ]a) Prediction of prolongation of LOS based on ANY ONE of the following may be considered as a contraindication for observational care 2, 3, 4, 5, 6, 7, 8, 9, 10, 11 [ ]i) Age > 65 yrs. [ ]ii) Patient arriving by ambulance [ ]iii) Patient with high acuity [ ]iv) Patient requiring vital sign monitoring [ ]v) Patient on IV medication [ ]b) Systolic blood pressures 180mmHg 3,12 [ ]c) Patient with altered mental status including delirium and other alteration of consciousness, (3) [ ]d) Patient whose discharge disposition will be to a half-way home or rehabilitation home should not be managed in Emergency Department Observation Unit. CMS rule requires 3 days hospital stay before such placement.3,13 [ ]e) Patient with failure to thrive due to broad array of etiologies 3,16,17 [ ]f) Inability to ambulate 3,14 Extended stay beyond goal length of stay for the primary condition may be needed until ALL of the following are present(3)(5): [ ]a) Underlying medical etiology of mental status change is absent, or has been established and adequately treated [ ]b) Danger to self or others is absent or manageable at lower level of care. [ ]c) Behavior crisis management, including physical or chemical restraints, is not required or available at lower level of car [ ]d) Substance or alcohol withdrawal is absent or manageable at lower level of care. [ ]e) Behavioral symptoms (eg, agitation, somnolence, inappropriate behavior) are absent, or are manageable at lower level of care. The original [facility] content created by [facility] has been revised. The portions of the content which have been revised are identified through the use of italic text or in bold, and [facility] has neither reviewed nor approved the modified material. All other unmodified content is copyright [facility]. Please see references footnoted in the original [facility] Admission Criteria Met?: Yes ARRON MCFARLANE Jul 15, 2016 16:32
[2016-07-15] MEDS ORDERED: CEFTRIAXONE SODIUM 1 GM in IV NORMAL SALINE 50ML 50 ML IV ONE (17:15)
[2016-07-15] MEDS ORDERED: HYDROCODONE/APAP 5/325MG TABLET. PO PRN (18:30)
[2016-07-15] MEDS ORDERED: ALBUTEROL SULFATE 2.5 MG/3 ML NEBU. NEB PRN (18:30)
[2016-07-15] MEDS ORDERED: hydrALAZINE 20 MG/ML VIAL. IVP PRN (18:30)
--- NOTE | 2016-07-15 18:48 | PDOC1 ---
History and Physical Past Medical History Cardiovascular: HTN CENTRAL NERVOUS SYSTEM: CVA Endocrine: Diabetes, Other Past Surgical History Past Surgical History: No pertinent history Family History Family History: Diabetes Social History ALCOHOL: none Drugs: None Current Problem List Problem List Problems Medical Problems: (1) Altered mental status Status: Acute (2) Mental status change Status: Acute Current Medications Current Medications Current Medications Medications (Trade) Dose Ordered Sig/Isaura Start Time Stop Time Status Last Admin Dose Admin Acetaminophen 650 mg 650 mg PRN Q4HRS PRN 07/15/16 15:15 07/16/16 15:14 Ceftriaxone Sodium/Sodium Chloride (Rocephin/Iv Sodium Chloride 0.9% 50ml) 50 ml @ 100 mls/hr 1X ONCE 07/15/16 17:15 07/15/16 17:44 DC Dextrose 12.5 gm 12.5 gm PRN Q15MIN PRN 07/15/16 15:15 Insulin Aspart (Novolog) 0-7 UNITS TIDWMEALS 07/15/16 16:00 Morphine Sulfate 2 mg PRN Q2HR PRN 07/15/16 15:15 07/16/16 15:14 Ondansetron HCl (Zofran) 4 mg PRN Q8HRS PRN 07/15/16 15:15 07/16/16 15:14 Sodium Chloride (Iv Sodium Chloride 0.9% 500ml Bag) 500 ml @ 500 mls/hr 1X ONCE 07/15/16 13:45 07/15/16 14:44 DC 07/15/16 13:47 500 MLS/HR Sodium Chloride (Iv Sodium Chloride 0.9% 1000ml Bag) 1,000 ml @ 1,000 mls/hr 1X ONCE 07/15/16 15:15 07/15/16 16:14 DC 07/15/16 15:43 1,000 MLS/HR Allergies Allergies Allergies Coded Allergies Type Severity Reaction Last Updated Verified No Known Drug Allergies 07/05/16 No ROS Review of System SEIZURES NOT ABLE TO OBTAIN Physical Exam Physical Exam GEN.: No apparent distress. Alert CONFUSED HEENT: Head is normocephalic, atraumatic NECK: Supple. NO JVD LUNGS: Clear to auscultation. normal airflow HEART: RRR, S1, S2 present. Peripheral pulses intact ABDOMEN: Soft, nontender. Positive bowel sounds. EXTREMITIES: Without any cyanosis. NEUROLOGIC: confused, post ictal state. PSYCHIATRIC: SKIN: Vitals Vitals Vital Signs Date Time Temp Pulse Resp B/P Pulse Ox O2 Delivery O2 Flow Rate FiO2 07/15/16 15:45 64 16 149/86 97 07/15/16 13:15 98.3 Room Air 98.3 Labs Labs Laboratory Tests Test 07/15/16 13:26 07/15/16 13:40 07/15/16 14:25 07/15/16 14:45 White Blood Count 9.6x10^3/uL (4.0-11.0) Red Blood Count 5.87x10^6/uL (4.30-5.70) Hemoglobin 17.0g/dL (13.0-17.5) Hematocrit 49.1% (39.0-53.0) Mean Corpuscular Volume 84fL (79-100) Mean Corpuscular Hemoglobin 29pg (25-35) Mean Corpuscular Hemoglobin Concent 35g/dL (31-37) Red Cell Distribution Width 13.4% (11.5-14.5) Platelet Count 312x10^3/uL (140-400) Neutrophils (%) (Auto) 67% (31-73) Lymphocytes (%) (Auto) 24% (24-48) Monocytes (%) (Auto) 6% (0-9) Eosinophils (%) (Auto) 2% (0-3) Basophils (%) (Auto) 1% (0-3) Neutrophils # (Auto) 6.4x10^3uL (1.8-7.7) Lymphocytes # (Auto) 2.3x10^3/uL (1.0-4.8) Monocytes # (Auto) 0.5x10^3/uL (0.0-1.1) Eosinophils # (Auto) 0.2x10^3/uL (0.0-0.7) Basophils # (Auto) 0.1x10^3/uL (0.0-0.2) Sodium Level 138mmol/L (136-145) Potassium Level 4.1mmol/L (3.5-5.1) Chloride Level 99mmol/L (98-107) Carbon Dioxide Level 28mmol/L (21-32) Anion Gap 11 (6-14) Blood Urea Nitrogen 22mg/dL (8-26) Creatinine 1.2mg/dL (0.7-1.3) Estimated GFR (Cockcroft-Gault) 63.8 BUN/Creatinine Ratio 18 (6-20) Glucose Level 323mg/dL (70-99) Calcium Level 9.7mg/dL (8.5-10.1) Magnesium Level 1.7mg/dL (1.8-2.4) Total Bilirubin 0.5mg/dL (0.2-1.0) Aspartate Amino Transf (AST/SGOT) 13U/L (15-37) Alanine Aminotransferase (ALT/SGPT) 25U/L (16-63) Alkaline Phosphatase 81U/L (46-116) Total Protein 8.2g/dL (6.4-8.2) Albumin 3.8g/dL (3.4-5.0) Albumin/Globulin Ratio 0.9 (1.0-1.7) Lactic Acid Level 4.0mmol/L (0.4-2.0) 2.7mmol/L (0.4-2.0) Urine Collection Type Unknown Urine Color Yellow Urine Clarity Clear Urine pH 6.0 Urine Specific Reedley >=1.030 Urine Protein >=300mg/dL (NEG-TRACE) Urine Glucose (UA) >=1000mg/dL (NEG) Urine Ketones (Stick) Negativemg/dL (NEG) Urine Blood Trace (NEG) Urine Nitrite Positive (NEG) Urine Bilirubin Negative (NEG) Urine Urobilinogen Dipstick 0.2mg/dL (0.2 mg/dL) Urine Leukocyte Esterase Negative (NEG) Urine RBC Occ/HPF (0-2) Urine WBC 11-20/HPF (0-4) Urine Squamous Epithelial Cells Occ/LPF Urine Bacteria Many/HPF (0-FEW) Urine Hyaline Casts Few/HPF Urine Mucus Mod/LPF Urine Opiates Screen Neg (NEG) Urine Methadone Screen Neg (NEG) Urine Barbiturates Neg (NEG) Urine Phencyclidine Screen Neg (NEG) Urine Amphetamine/Methamphetamine Neg (NEG) Urine Benzodiazepines Screen Neg (NEG) Urine Cocaine Screen Neg (NEG) Urine Cannabinoids Screen Neg (NEG) Urine Ethyl Alcohol Neg (NEG) Test 07/15/16 17:00 Lactic Acid Level 2.0mmol/L (0.4-2.0) Laboratory Tests Test 07/15/16 13:26 07/15/16 13:40 07/15/16 14:25 07/15/16 14:45 White Blood Count 9.6x10^3/uL (4.0-11.0) Red Blood Count 5.87x10^6/uL (4.30-5.70) Hemoglobin 17.0g/dL (13.0-17.5) Hematocrit 49.1% (39.0-53.0) Mean Corpuscular Volume 84fL (79-100) Mean Corpuscular Hemoglobin 29pg (25-35) Mean Corpuscular Hemoglobin Concent 35g/dL (31-37) Red Cell Distribution Width 13.4% (11.5-14.5) Platelet Count 312x10^3/uL (140-400) Neutrophils (%) (Auto) 67% (31-73) Lymphocytes (%) (Auto) 24% (24-48) Monocytes (%) (Auto) 6% (0-9) Eosinophils (%) (Auto) 2% (0-3) Basophils (%) (Auto) 1% (0-3) Neutrophils # (Auto) 6.4x10^3uL (1.8-7.7) Lymphocytes # (Auto) 2.3x10^3/uL (1.0-4.8) Monocytes # (Auto) 0.5x10^3/uL (0.0-1.1) Eosinophils # (Auto) 0.2x10^3/uL (0.0-0.7) Basophils # (Auto) 0.1x10^3/uL (0.0-0.2) Sodium Level 138mmol/L (136-145) Potassium Level 4.1mmol/L (3.5-5.1) Chloride Level 99mmol/L (98-107) Carbon Dioxide Level 28mmol/L (21-32) Anion Gap 11 (6-14) Blood Urea Nitrogen 22mg/dL (8-26) Creatinine 1.2mg/dL (0.7-1.3) Estimated GFR (Cockcroft-Gault) 63.8 BUN/Creatinine Ratio 18 (6-20) Glucose Level 323mg/dL (70-99) Calcium Level 9.7mg/dL (8.5-10.1) Magnesium Level 1.7mg/dL (1.8-2.4) Total Bilirubin 0.5mg/dL (0.2-1.0) Aspartate Amino Transf (AST/SGOT) 13U/L (15-37) Alanine Aminotransferase (ALT/SGPT) 25U/L (16-63) Alkaline Phosphatase 81U/L (46-116) Total Protein 8.2g/dL (6.4-8.2) Albumin 3.8g/dL (3.4-5.0) Albumin/Globulin Ratio 0.9 (1.0-1.7) Lactic Acid Level 4.0mmol/L (0.4-2.0) 2.7mmol/L (0.4-2.0) Urine Collection Type Unknown Urine Color Yellow Urine Clarity Clear Urine pH 6.0 Urine Specific Reedley >=1.030 Urine Protein >=300mg/dL (NEG-TRACE) Urine Glucose (UA) >=1000mg/dL (NEG) Urine Ketones (Stick) Negativemg/dL (NEG) Urine Blood Trace (NEG) Urine Nitrite Positive (NEG) Urine Bilirubin Negative (NEG) Urine Urobilinogen Dipstick 0.2mg/dL (0.2 mg/dL) Urine Leukocyte Esterase Negative (NEG) Urine RBC Occ/HPF (0-2) Urine WBC 11-20/HPF (0-4) Urine Squamous Epithelial Cells Occ/LPF Urine Bacteria Many/HPF (0-FEW) Urine Hyaline Casts Few/HPF Urine Mucus Mod/LPF Urine Opiates Screen Neg (NEG) Urine Methadone Screen Neg (NEG) Urine Barbiturates Neg (NEG) Urine Phencyclidine Screen Neg (NEG) Urine Amphetamine/Methamphetamine Neg (NEG) Urine Benzodiazepines Screen Neg (NEG) Urine Cocaine Screen Neg (NEG) Urine Cannabinoids Screen Neg (NEG) Urine Ethyl Alcohol Neg (NEG) Test 07/15/16 17:00 Lactic Acid Level 2.0mmol/L (0.4-2.0) VTE Prophylaxis Ordered VTE Prophylaxis Devices: Yes VTE Pharmacological Prophylaxi: No BRODY MURRAY MD Jul 15, 2016 18:48
[2016-07-15 18:50] VITALS: BP 140/83
[2016-07-15] MEDS ORDERED: LORAZEPAM 2 MG/ML VIAL IV PRN (19:00)
[2016-07-15] MEDS ORDERED: LORAZEPAM 2 MG/ML VIAL IV ONE (19:00)
[2016-07-15 19:38] VITALS: BP 149/82
[2016-07-15] MEDS ORDERED: CEFTRIAXONE SODIUM 1 GM in IV NORMAL SALINE 50ML 50 ML IV SCH (20:00)
[2016-07-15] MEDS: IV NORMAL SALINE 1000ML BAG 1,000 ML IV SCH (21:00)
[2016-07-15 23:57] VITALS: BP 135/88
[2016-07-16 03:37] VITALS: BP 156/103
[2016-07-16 04:34] LABS: BASO # 0.1 x10^3/uL (0.0-0.2); BASO % 1 % (0-3); EOS % 2 % (0-3); HEMATOCRIT 43.9 % (39.0-53.0); HEMOGLOBIN 15.1 g/dL (13.0-17.5); LYMPH # 2.3 x10^3/uL (1.0-4.8); LYMPH % 25 % (24-48); MEAN CORPUSCULAR HEMOGLOBIN 29 pg (25-35); MEAN CORPUSCULAR HGB CONC 34 g/dL (31-37); MEAN CORPUSCULAR VOLUME 84 fL (79-100); MONO % 8 % (0-9); NEUT % 64 % (31-73); PLATELET COUNT 254 x10^3/uL (140-400); RED BLOOD COUNT 5.21 x10^6/uL (4.30-5.70); RED CELL DISTRIBUTION WIDTH 13.6 % (11.5-14.5); WHITE BLOOD COUNT 9.2 x10^3/uL (4.0-11.0)
[2016-07-16 04:59] LABS: CREATININE 0.9 mg/dL (0.7-1.3); POTASSIUM 3.2 mmol/L (3.5-5.1)
--- NOTE | 2016-07-16 06:43 | HP ---
ADMIT DATE: 07/15/2016 CHIEF COMPLAINT: Altered mental status. HISTORY OF PRESENT ILLNESS: A 51-year-old male patient brought to the hospital with complaints of altered mental status. Most of the history obtained from the chart. At the time of my examination, the patient is confused in altered mental status, not able to provide any history. As per the ER note, the patient had a seizure-like activity prior to his arrival and he bit his tongue and at the time of examination, as per the ER physician, he was alert and oriented and symptoms suggestive of most likely seizure-like activity. Around 6:45 p.m., the patient had a seizure-like activity again, lasted for a few minutes, reportedly seen by staff. At the time of my examination, the patient is not able to provide me any history. He is confused. He is opening his eyes, alert, but appears groggy. I did use the foxing closer phone; however, the patient is not responding to questions. His vitals are hemodynamically stable. The patient's systolic blood pressure is around 140s. I did review his old records. He was here in the hospital recently a few days ago for accelerated hypertension and questionable TIA. PAST MEDICAL HISTORY AND REVIEW OF SYSTEMS: See my electronic H and P. LABORATORY DATA: WBC 9.6, hemoglobin 17.0, MCV is 84, platelets 312. Chemistry: Sodium is 138, potassium 4.1, chloride 99, gap is 11, creatinine is 1.2. Lactate initially 4.0, later 2.7 and 2.0. Toxicology negative. Urine, specific gravity more than 1.030, protein is more than 300, glucose is more than 1000, ketones negative, nitrites positive, bilirubin negative, leukocyte esterase negative, hyaline casts few. IMAGING STUDIES: Chest x-ray: No acute cardiopulmonary process seen. Head CT showed no acute intracranial process seen. Mild age-related atrophy or area of encephalomalacia seen in the right frontal region. ASSESSMENT: 1. Altered mental status, present on admission, suspected due to seizure-like activity. 2. Recurrent seizures. 3. Prior history of cerebrovascular accident. 4. Hypertension. 5. Type 2 diabetes mellitus. PLAN: 1. Has been admitted to Neuro Step-Down Unit. Currently, the patient was started on Ativan 2 mg every 2 hours. Neurology has been consulted. Initial imaging studies did not show any CVA. 2. I tried to the foxing closer phone; however, could not able to get any history from the patient. No family members immediately available at this time. 3. I will consult Neurology for further recommendations. Suspect possible seizure like activity. 4. Continue Rocephin for suspected urinary tract infection. I will order ultrasound of renal for hypertension and proteinuria. 5. The patient's prognosis is guarded. 6. Seizure percussions. Physical therapy and occupational therapy, keep him n.p.o., IV hydration at 75 mL per hour. BRODY MURRAY MD DR: KAT/luisito JOB#: [id number] / [id number] MILE
[2016-07-16 07:33] VITALS: BP 158/97
[2016-07-16] MEDS: INSULIN ASPART 300 UNITS/3 ML INSULN.PEN SQ SCH ×3 (08:00→18:21)
[2016-07-16] MEDS: IV NORMAL SALINE 1000ML BAG 1,000 ML IV SCH (09:11)
--- NOTE | 2016-07-16 09:20 | RAD ---
Renal ultrasound, 07/15/2016: History: Hypertension, proteinuria The right kidney measures 13.9 cm in length while the left kidney measures 13.4 cm. The renal parenchymal echogenicity is slightly increased. There is no evidence of hydronephrosis. No renal mass is evident. Limited views of urinary bladder show no abnormality. IMPRESSION: 1. Slightly increased renal parenchymal echogenicity suggesting medical renal disease 2. The kidneys are otherwise unremarkable.
[2016-07-16] MEDS: POTASSIUM CHLORIDE 10MEQ 100 ML IV SCH ×4 (09:29→15:42)
[2016-07-16] MEDS ORDERED: LEVETIRACETAM 500 MG TABLET PO SCH (10:00)
[2016-07-16 11:00] VITALS: BP_SYST 136; BP_SYST 169; BP_DIAS 110; BP_DIAS 93
--- NOTE | 2016-07-16 11:09 | PDOC ---
PROGRESS NOTES Chief Complaint Chief Complaint 1. SZ 2, HTN - recent urgency 3. Hx CVA 4, UTI, being treated recently History of Present Illness History of Present Illness Pt re admitted but this time for a SZ Hx CVA Awake now, denies headache, hungry WAs here few days ago for HTN urgency needing cardene gtt and UTI which is being treated Was dcd on PO cipro I f i can remember correctly PLAn: Await neuro Reg diet PT/OT Can do PO cipro and dc IV rocephin Vitals Vitals Vital Signs Date Time Temp Pulse Resp B/P Pulse Ox O2 Delivery O2 Flow Rate FiO2 07/16/16 09:20 20 Room Air 07/16/16 07:33 97.9 88 158/97 96 97.9 Physical Exam General: Alert, Oriented X3, Cooperative Heart: Regular rate, Normal S1, Normal S2 Lungs: Clear, Wheezing Abdomen: Soft Extremities: No clubbing, No cyanosis Skin: No rashes, No breakdown Labs LABS Laboratory Tests Test 07/15/16 13:26 07/15/16 13:40 07/15/16 14:25 07/15/16 14:45 White Blood Count 9.6x10^3/uL (4.0-11.0) Red Blood Count 5.87x10^6/uL (4.30-5.70) Hemoglobin 17.0g/dL (13.0-17.5) Hematocrit 49.1% (39.0-53.0) Mean Corpuscular Volume 84fL (79-100) Mean Corpuscular Hemoglobin 29pg (25-35) Mean Corpuscular Hemoglobin Concent 35g/dL (31-37) Red Cell Distribution Width 13.4% (11.5-14.5) Platelet Count 312x10^3/uL (140-400) Neutrophils (%) (Auto) 67% (31-73) Lymphocytes (%) (Auto) 24% (24-48) Monocytes (%) (Auto) 6% (0-9) Eosinophils (%) (Auto) 2% (0-3) Basophils (%) (Auto) 1% (0-3) Neutrophils # (Auto) 6.4x10^3uL (1.8-7.7) Lymphocytes # (Auto) 2.3x10^3/uL (1.0-4.8) Monocytes # (Auto) 0.5x10^3/uL (0.0-1.1) Eosinophils # (Auto) 0.2x10^3/uL (0.0-0.7) Basophils # (Auto) 0.1x10^3/uL (0.0-0.2) Sodium Level 138mmol/L (136-145) Potassium Level 4.1mmol/L (3.5-5.1) Chloride Level 99mmol/L (98-107) Carbon Dioxide Level 28mmol/L (21-32) Anion Gap 11 (6-14) Blood Urea Nitrogen 22mg/dL (8-26) Creatinine 1.2mg/dL (0.7-1.3) Estimated GFR (Cockcroft-Gault) 63.8 BUN/Creatinine Ratio 18 (6-20) Glucose Level 323mg/dL (70-99) Calcium Level 9.7mg/dL (8.5-10.1) Magnesium Level 1.7mg/dL (1.8-2.4) Total Bilirubin 0.5mg/dL (0.2-1.0) Aspartate Amino Transf (AST/SGOT) 13U/L (15-37) Alanine Aminotransferase (ALT/SGPT) 25U/L (16-63) Alkaline Phosphatase 81U/L (46-116) Total Protein 8.2g/dL (6.4-8.2) Albumin 3.8g/dL (3.4-5.0) Albumin/Globulin Ratio 0.9 (1.0-1.7) Lactic Acid Level 4.0mmol/L (0.4-2.0) 2.7mmol/L (0.4-2.0) Urine Collection Type Unknown Urine Color Yellow Urine Clarity Clear Urine pH 6.0 Urine Specific [place] >=1.030 Urine Protein >=300mg/dL (NEG-TRACE) Urine Glucose (UA) >=1000mg/dL (NEG) Urine Ketones (Stick) Negativemg/dL (NEG) Urine Blood Trace (NEG) Urine Nitrite Positive (NEG) Urine Bilirubin Negative (NEG) Urine Urobilinogen Dipstick 0.2mg/dL (0.2 mg/dL) Urine Leukocyte Esterase Negative (NEG) Urine RBC Occ/HPF (0-2) Urine WBC 11-20/HPF (0-4) Urine Squamous Epithelial Cells Occ/LPF Urine Bacteria Many/HPF (0-FEW) Urine Hyaline Casts Few/HPF Urine Mucus Mod/LPF Urine Opiates Screen Neg (NEG) Urine Methadone Screen Neg (NEG) Urine Barbiturates Neg (NEG) Urine Phencyclidine Screen Neg (NEG) Urine Amphetamine/Methamphetamine Neg (NEG) Urine Benzodiazepines Screen Neg (NEG) Urine Cocaine Screen Neg (NEG) Urine Cannabinoids Screen Neg (NEG) Urine Ethyl Alcohol Neg (NEG) Test 07/15/16 17:00 07/15/16 21:09 07/16/16 03:24 07/16/16 07:43 Lactic Acid Level 2.0mmol/L (0.4-2.0) Glucose (Fingerstick) 228mg/dL (70-99) 181mg/dL (70-99) White Blood Count 9.2x10^3/uL (4.0-11.0) Red Blood Count 5.21x10^6/uL (4.30-5.70) Hemoglobin 15.1g/dL (13.0-17.5) Hematocrit 43.9% (39.0-53.0) Mean Corpuscular Volume 84fL (79-100) Mean Corpuscular Hemoglobin 29pg (25-35) Mean Corpuscular Hemoglobin Concent 34g/dL (31-37) Red Cell Distribution Width 13.6% (11.5-14.5) Platelet Count 254x10^3/uL (140-400) Neutrophils (%) (Auto) 64% (31-73) Lymphocytes (%) (Auto) 25% (24-48) Monocytes (%) (Auto) 8% (0-9) Eosinophils (%) (Auto) 2% (0-3) Basophils (%) (Auto) 1% (0-3) Neutrophils # (Auto) 5.8x10^3uL (1.8-7.7) Lymphocytes # (Auto) 2.3x10^3/uL (1.0-4.8) Monocytes # (Auto) 0.7x10^3/uL (0.0-1.1) Eosinophils # (Auto) 0.2x10^3/uL (0.0-0.7) Basophils # (Auto) 0.1x10^3/uL (0.0-0.2) Sodium Level 141mmol/L (136-145) Potassium Level 3.2mmol/L (3.5-5.1) Chloride Level 102mmol/L (98-107) Carbon Dioxide Level 30mmol/L (21-32) Anion Gap 9 (6-14) Blood Urea Nitrogen 16mg/dL (8-26) Creatinine 0.9mg/dL (0.7-1.3) Estimated GFR (Cockcroft-Gault) 89.0 Glucose Level 181mg/dL (70-99) Calcium Level 9.0mg/dL (8.5-10.1) Review of Systems Review of Systems no headache, abd pain or muscle pain Assessment and Plan Assessmemt and Plan Problems Medical Problems: (1) Altered mental status Status: Acute (2) Mental status change Status: Acute Problems: Comment Review of Relevant I have reviewed the following items mary (where applicable) has been applied. Labs Laboratory Tests Test 07/15/16 13:26 07/15/16 13:40 07/15/16 14:25 07/15/16 14:45 White Blood Count 9.6x10^3/uL (4.0-11.0) Red Blood Count 5.87x10^6/uL (4.30-5.70) Hemoglobin 17.0g/dL (13.0-17.5) Hematocrit 49.1% (39.0-53.0) Mean Corpuscular Volume 84fL (79-100) Mean Corpuscular Hemoglobin 29pg (25-35) Mean Corpuscular Hemoglobin Concent 35g/dL (31-37) Red Cell Distribution Width 13.4% (11.5-14.5) Platelet Count 312x10^3/uL (140-400) Neutrophils (%) (Auto) 67% (31-73) Lymphocytes (%) (Auto) 24% (24-48) Monocytes (%) (Auto) 6% (0-9) Eosinophils (%) (Auto) 2% (0-3) Basophils (%) (Auto) 1% (0-3) Neutrophils # (Auto) 6.4x10^3uL (1.8-7.7) Lymphocytes # (Auto) 2.3x10^3/uL (1.0-4.8) Monocytes # (Auto) 0.5x10^3/uL (0.0-1.1) Eosinophils # (Auto) 0.2x10^3/uL (0.0-0.7) Basophils # (Auto) 0.1x10^3/uL (0.0-0.2) Sodium Level 138mmol/L (136-145) Potassium Level 4.1mmol/L (3.5-5.1) Chloride Level 99mmol/L (98-107) Carbon Dioxide Level 28mmol/L (21-32) Anion Gap 11 (6-14) Blood Urea Nitrogen 22mg/dL (8-26) Creatinine 1.2mg/dL (0.7-1.3) Estimated GFR (Cockcroft-Gault) 63.8 BUN/Creatinine Ratio 18 (6-20) Glucose Level 323mg/dL (70-99) Calcium Level 9.7mg/dL (8.5-10.1) Magnesium Level 1.7mg/dL (1.8-2.4) Total Bilirubin 0.5mg/dL (0.2-1.0) Aspartate Amino Transf (AST/SGOT) 13U/L (15-37) Alanine Aminotransferase (ALT/SGPT) 25U/L (16-63) Alkaline Phosphatase 81U/L (46-116) Total Protein 8.2g/dL (6.4-8.2) Albumin 3.8g/dL (3.4-5.0) Albumin/Globulin Ratio 0.9 (1.0-1.7) Lactic Acid Level 4.0mmol/L (0.4-2.0) 2.7mmol/L (0.4-2.0) Urine Collection Type Unknown Urine Color Yellow Urine Clarity Clear Urine pH 6.0 Urine Specific [place] >=1.030 Urine Protein >=300mg/dL (NEG-TRACE) Urine Glucose (UA) >=1000mg/dL (NEG) Urine Ketones (Stick) Negativemg/dL (NEG) Urine Blood Trace (NEG) Urine Nitrite Positive (NEG) Urine Bilirubin Negative (NEG) Urine Urobilinogen Dipstick 0.2mg/dL (0.2 mg/dL) Urine Leukocyte Esterase Negative (NEG) Urine RBC Occ/HPF (0-2) Urine WBC 11-20/HPF (0-4) Urine Squamous Epithelial Cells Occ/LPF Urine Bacteria Many/HPF (0-FEW) Urine Hyaline Casts Few/HPF Urine Mucus Mod/LPF Urine Opiates Screen Neg (NEG) Urine Methadone Screen Neg (NEG) Urine Barbiturates Neg (NEG) Urine Phencyclidine Screen Neg (NEG) Urine Amphetamine/Methamphetamine Neg (NEG) Urine Benzodiazepines Screen Neg (NEG) Urine Cocaine Screen Neg (NEG) Urine Cannabinoids Screen Neg (NEG) Urine Ethyl Alcohol Neg (NEG) Test 07/15/16 17:00 07/15/16 21:09 07/16/16 03:24 07/16/16 07:43 Lactic Acid Level 2.0mmol/L (0.4-2.0) Glucose (Fingerstick) 228mg/dL (70-99) 181mg/dL (70-99) White Blood Count 9.2x10^3/uL (4.0-11.0) Red Blood Count 5.21x10^6/uL (4.30-5.70) Hemoglobin 15.1g/dL (13.0-17.5) Hematocrit 43.9% (39.0-53.0) Mean Corpuscular Volume 84fL (79-100) Mean Corpuscular Hemoglobin 29pg (25-35) Mean Corpuscular Hemoglobin Concent 34g/dL (31-37) Red Cell Distribution Width 13.6% (11.5-14.5) Platelet Count 254x10^3/uL (140-400) Neutrophils (%) (Auto) 64% (31-73) Lymphocytes (%) (Auto) 25% (24-48) Monocytes (%) (Auto) 8% (0-9) Eosinophils (%) (Auto) 2% (0-3) Basophils (%) (Auto) 1% (0-3) Neutrophils # (Auto) 5.8x10^3uL (1.8-7.7) Lymphocytes # (Auto) 2.3x10^3/uL (1.0-4.8) Monocytes # (Auto) 0.7x10^3/uL (0.0-1.1) Eosinophils # (Auto) 0.2x10^3/uL (0.0-0.7) Basophils # (Auto) 0.1x10^3/uL (0.0-0.2) Sodium Level 141mmol/L (136-145) Potassium Level 3.2mmol/L (3.5-5.1) Chloride Level 102mmol/L (98-107) Carbon Dioxide Level 30mmol/L (21-32) Anion Gap 9 (6-14) Blood Urea Nitrogen 16mg/dL (8-26) Creatinine 0.9mg/dL (0.7-1.3) Estimated GFR (Cockcroft-Gault) 89.0 Glucose Level 181mg/dL (70-99) Calcium Level 9.0mg/dL (8.5-10.1) Laboratory Tests Test 07/15/16 13:26 07/15/16 13:40 07/15/16 14:25 07/15/16 14:45 White Blood Count 9.6x10^3/uL (4.0-11.0) Red Blood Count 5.87x10^6/uL (4.30-5.70) Hemoglobin 17.0g/dL (13.0-17.5) Hematocrit 49.1% (39.0-53.0) Mean Corpuscular Volume 84fL (79-100) Mean Corpuscular Hemoglobin 29pg (25-35) Mean Corpuscular Hemoglobin Concent 35g/dL (31-37) Red Cell Distribution Width 13.4% (11.5-14.5) Platelet Count 312x10^3/uL (140-400) Neutrophils (%) (Auto) 67% (31-73) Lymphocytes (%) (Auto) 24% (24-48) Monocytes (%) (Auto) 6% (0-9) Eosinophils (%) (Auto) 2% (0-3) Basophils (%) (Auto) 1% (0-3) Neutrophils # (Auto) 6.4x10^3uL (1.8-7.7) Lymphocytes # (Auto) 2.3x10^3/uL (1.0-4.8) Monocytes # (Auto) 0.5x10^3/uL (0.0-1.1) Eosinophils # (Auto) 0.2x10^3/uL (0.0-0.7) Basophils # (Auto) 0.1x10^3/uL (0.0-0.2) Sodium Level 138mmol/L (136-145) Potassium Level 4.1mmol/L (3.5-5.1) Chloride Level 99mmol/L (98-107) Carbon Dioxide Level 28mmol/L (21-32) Anion Gap 11 (6-14) Blood Urea Nitrogen 22mg/dL (8-26) Creatinine 1.2mg/dL (0.7-1.3) Estimated GFR (Cockcroft-Gault) 63.8 BUN/Creatinine Ratio 18 (6-20) Glucose Level 323mg/dL (70-99) Calcium Level 9.7mg/dL (8.5-10.1) Magnesium Level 1.7mg/dL (1.8-2.4) Total Bilirubin 0.5mg/dL (0.2-1.0) Aspartate Amino Transf (AST/SGOT) 13U/L (15-37) Alanine Aminotransferase (ALT/SGPT) 25U/L (16-63) Alkaline Phosphatase 81U/L (46-116) Total Protein 8.2g/dL (6.4-8.2) Albumin 3.8g/dL (3.4-5.0) Albumin/Globulin Ratio 0.9 (1.0-1.7) Lactic Acid Level 4.0mmol/L (0.4-2.0) 2.7mmol/L (0.4-2.0) Urine Collection Type Unknown Urine Color Yellow Urine Clarity Clear Urine pH 6.0 Urine Specific [place] >=1.030 Urine Protein >=300mg/dL (NEG-TRACE) Urine Glucose (UA) >=1000mg/dL (NEG) Urine Ketones (Stick) Negativemg/dL (NEG) Urine Blood Trace (NEG) Urine Nitrite Positive (NEG) Urine Bilirubin Negative (NEG) Urine Urobilinogen Dipstick 0.2mg/dL (0.2 mg/dL) Urine Leukocyte Esterase Negative (NEG) Urine RBC Occ/HPF (0-2) Urine WBC 11-20/HPF (0-4) Urine Squamous Epithelial Cells Occ/LPF Urine Bacteria Many/HPF (0-FEW) Urine Hyaline Casts Few/HPF Urine Mucus Mod/LPF Urine Opiates Screen Neg (NEG) Urine Methadone Screen Neg (NEG) Urine Barbiturates Neg (NEG) Urine Phencyclidine Screen Neg (NEG) Urine Amphetamine/Methamphetamine Neg (NEG) Urine Benzodiazepines Screen Neg (NEG) Urine Cocaine Screen Neg (NEG) Urine Cannabinoids Screen Neg (NEG) Urine Ethyl Alcohol Neg (NEG) Test 07/15/16 17:00 07/15/16 21:09 07/16/16 03:24 07/16/16 07:43 Lactic Acid Level 2.0mmol/L (0.4-2.0) Glucose (Fingerstick) 228mg/dL (70-99) 181mg/dL (70-99) White Blood Count 9.2x10^3/uL (4.0-11.0) Red Blood Count 5.21x10^6/uL (4.30-5.70) Hemoglobin 15.1g/dL (13.0-17.5) Hematocrit 43.9% (39.0-53.0) Mean Corpuscular Volume 84fL (79-100) Mean Corpuscular Hemoglobin 29pg (25-35) Mean Corpuscular Hemoglobin Concent 34g/dL (31-37) Red Cell Distribution Width 13.6% (11.5-14.5) Platelet Count 254x10^3/uL (140-400) Neutrophils (%) (Auto) 64% (31-73) Lymphocytes (%) (Auto) 25% (24-48) Monocytes (%) (Auto) 8% (0-9) Eosinophils (%) (Auto) 2% (0-3) Basophils (%) (Auto) 1% (0-3) Neutrophils # (Auto) 5.8x10^3uL (1.8-7.7) Lymphocytes # (Auto) 2.3x10^3/uL (1.0-4.8) Monocytes # (Auto) 0.7x10^3/uL (0.0-1.1) Eosinophils # (Auto) 0.2x10^3/uL (0.0-0.7) Basophils # (Auto) 0.1x10^3/uL (0.0-0.2) Sodium Level 141mmol/L (136-145) Potassium Level 3.2mmol/L (3.5-5.1) Chloride Level 102mmol/L (98-107) Carbon Dioxide Level 30mmol/L (21-32) Anion Gap 9 (6-14) Blood Urea Nitrogen 16mg/dL (8-26) Creatinine 0.9mg/dL (0.7-1.3) Estimated GFR (Cockcroft-Gault) 89.0 Glucose Level 181mg/dL (70-99) Calcium Level 9.0mg/dL (8.5-10.1) Medications Current Medications Sodium Chloride (Iv Sodium Chloride 0.9% 500ml Bag) 500 ml @ 500 mls/hr 1X ONCE IV Last administered on 07/15/16 13:47; Start 07/15/16 at 13:45; Stop at 14:44; Status DC Ondansetron HCl (Zofran) 4 mg PRN Q8HRS PRN IV NAUSEA/VOMITING; Start 07/15/16 at 15:15; Stop 07/15/16 at 18:34; Status DC Morphine Sulfate 2 mg PRN Q2HR PRN IV PAIN Last administered on 07/16/16 09:20 ; Start 07/15/16 at 15:15; Stop 07/16/16 at 15:14 Acetaminophen 650 mg 650 mg PRN Q4HRS PRN PO FEVER; Start 07/15/16 at 15:15; Stop 07/15/16 at 18:34; Status DC Sodium Chloride (Iv Sodium Chloride 0.9% 1000ml Bag) 1,000 ml @ 1,000 mls/hr 1X ONCE IV Last administered on 07/15/16 15:43; Start 07/15/16 at 15:15; Stop 07/15/16 at 16:14; Status DC Insulin Aspart (Novolog) 0-7 UNITS TIDWMEALS SQ ; Start 07/15/16 at 16:00; Stop 07/15/16 at 18:55; Status DC Dextrose 12.5 gm 12.5 gm PRN Q15MIN PRN IV SEE COMMENTS; Start 07/15/16 at 15: 15 Ceftriaxone Sodium/Sodium Chloride (Rocephin/Iv Sodium Chloride 0.9% 50ml) 50 ml @ 100 mls/hr 1X ONCE IV Last administered on 07/15/16 20:58; Start at 17:15; Stop 07/15/16 at 17:44; Status DC Acetaminophen (Tylenol) 325 mg PRN Q6HRS PRN PO MILD PAIN / TEMP; Start at 18:30 Acetaminophen/ Hydrocodone Bitart (Lortab 5/325) 1 tab PRN Q6HRS PRN PO MODERATE TO SEVERE PAIN; Start 07/15/16 at 18:30 Hydralazine HCl (Apresoline) 10 mg PRN Q4HRS PRN IVP ELEVATED BP, SEE COMMENTS ; Start 07/15/16 at 18:30 Ondansetron HCl (Zofran) 4 mg PRN Q8HRS PRN IV NAUSEA/VOMITING; Start 07/15/16 at 18:30 Albuterol Sulfate 2.5 mg 2.5 mg PRN Q4HRS PRN NEB SHORTNESS OF BREATH; Start at 18:30 Ceftriaxone Sodium/Sodium Chloride (Rocephin/Iv Sodium Chloride 0.9% 50ml) 50 ml @ 100 mls/hr Q24H IV ; Start 07/15/16 at 20:00; Stop 07/15/16 at 21:28; Status DC Lorazepam (Ativan) 2 mg 1X ONCE IV Last administered on 07/15/16 19:00; Start 07/15/16 at 19:00; Stop 07/15/16 at 19:01; Status DC Lorazepam 2 mg 2 mg PRN Q2HR PRN IV SEIZURES; Start 07/15/16 at 19:00 Sodium Chloride (Iv Sodium Chloride 0.9% 1000ml Bag) 1,000 ml @ 75 mls/hr [id number] IV Last administered on 07/16/16 09:11; Start 07/15/16 at 19:00; Stop 07/16/16 at 18:59 Insulin Aspart (Novolog) 0-9 UNITS TIDWMEALS SQ ; Start 07/16/16 at 08:00 Dextrose 12.5 gm 12.5 gm PRN Q15MIN PRN IV SEE COMMENTS; Start 07/15/16 at 19: 00 Ceftriaxone Sodium/Sodium Chloride (Rocephin/Iv Sodium Chloride 0.9% 50ml) 50 ml @ 100 mls/hr Q24H IV ; Start 07/16/16 at 20:00; Stop 07/18/16 at 19:59 Levetiracetam 500 mg 500 mg BID PO Last administered on 07/16/16 09:19; Start 07/16/16 at 10:00 Potassium Chloride (KCl Premix 10meq) 100 ml @ 100 mls/hr Q1H IV Last administered on 07/16/16t 09:29; Start 07/16/16 at 09:30; Stop 07/16/16 at 13:29 Active Scripts Active Norvasc (Amlodipine Besylate) 10 Mg Tablet 20 Mg PO BID Cipro (Ciprofloxacin Hcl) 500 Mg Tablet 1 Tab PO BID Reported Cinnamon (Cinnamon Bark) 500 Mg Capsule 500 Mg PO Losartan Potassium 100 Mg Tablet 100 Mg PO DAILY Metformin Hcl 1,000 Mg Tablet 1 Tab PO BID Oxybutynin Chloride 5 Mg Tablet 1 Tab PO BID Metoprolol Tartrate 100 Mg Tablet 1 Tab PO BID Glimepiride 4 Mg Tablet 1 Tab PO DAILY Vitals/I & O Vital Sign - Last 24 Hours 07/15/16 07/15/16 07/15/16 07/15/16 13:15 14:09 15:45 18:50 Temp 98.3 98.2 98.3 98.2 Pulse 93 69 64 86 Resp 18 18 16 24 B/P 139/80 142/85 149/86 140/83 Pulse Ox 93 97 97 99 O2 Delivery Room Air Room Air 07/15/16 07/15/16 07/15/16 07/16/16 19:38 20:00 23:57 03:37 Temp 97.9 97.9 97.9 97.9 Pulse 83 77 81 Resp 22 16 16 B/P 149/82 135/88 156/103 Pulse Ox 95 94 95 O2 Delivery Room Air Room Air Room Air 07/16/16 07/16/16 07:33 09:20 Temp 97.9 97.9 Pulse 88 Resp 22 20 B/P 158/97 Pulse Ox 96 O2 Delivery Room Air Room Air Intake and Output 07/15/16 07/15/16 07/16/16 15:00 23:00 07:00 Intake Total 0 ml 0 ml Output Total 240 ml Balance 0 ml -240 ml CHARISSA ORO MD Jul 16, 2016 11:08
[2016-07-16] MEDS: LOSARTAN POTASSIUM 50 MG TABLET. PO SCH (13:15)
[2016-07-16] MEDS: AMLODIPINE BESYLATE 10 MG TABLET PO SCH ×2 (13:16→20:46)
[2016-07-16] MEDS: OXYBUTYNIN CHLORIDE 5 MG TABLET PO SCH ×2 (13:16→20:47)
[2016-07-16] MEDS: METFORMIN 1,000 MG TABLET PO SCH ×2 (13:16→18:18)
[2016-07-16] MEDS: CIPROFLOXACIN HCL 250 MG TABLET PO SCH ×2 (13:16→20:46)
[2016-07-16] MEDS: GLIMEPIRIDE 2 MG TABLET PO SCH (13:16)
[2016-07-16] MEDS: METOPROLOL TART IMMED RELEASE 50 MG TABLET PO SCH ×2 (13:17→20:47)
[2016-07-16 14:53] VITALS: BP 152/81
--- NOTE | 2016-07-16 17:15 | PDOC2 ---
NEUROLOGY CONSULT Date of Admission Date of Admission DATE: 07/16/16 TIME: 16:12 Reason for Consult Reason for Consult: IMPRESSION: MS changes. Seizure ? UTI HTN DM Lactic acidosis. CVA per Hx. RECOMMENDATIONS/PLAN: EEG Lab: see orders. HCT performed which was negative. Treat medical diseases. HISTORY OF THE PRESENT ILLNESS: 51-y-old [place] origin male patient was recently admitted and treated for UTI and other medical problems. He was admitted this time due to MS changes, questionable seizure, UTI, etc. No acute focalized neurological deficits found. He had Hx of CVA reported 6 months ago but recovered well. PAST MEDICAL HISTORY: Please see above. PAST SURGERY HISTORY: No major surgery recently. ALLERGY: Reviewed. MEDICATIONS: Refer to [facility] FAMILY HISTORY: DM SOCIAL HISTORY: Unknown his current status of smoking, drinking, and illicit drug use. He does not speak much Icelandic. REVIEW OF SYSTEMS: Constitutional: No malnutrition, weight loss, cachexia. Head: No traumatic brain or head injury. Skin: No edema, or rash. Ear: No infection, tinnitus. Eyes: No vision loss or color blindness. Nose: No bleeding or purulent discharges. Hearing: No hearing decrease. Neck: No injury. Cardiac: HTN. Pulmonary: No COPD. GI: No GI ulcer, GI bleeding. Urinary/genital: NUTI. Endocrinologic: Diabetes Mellitus. Skeletomuscular: No muscular atrophy, deformity. Neurological: see HP. Psychiatric: unknown his status of drug use/abuse. Otherwise, not [id number] review of systems. PHYSICAL EXAMINATION: General appearance is in no acute distress. HEENT: Normocephalic and nontraumatic. Eyes, nose, ears, and throat are unremarkable. Neck is supple. No lymphadenopathy. No bruits are heard over the carotid artery. No crepitus. Cardiovascular: S1, S2, regular rate and rhythm. Pulmonary: Clear to auscultation bilaterally. Abdomen: Bowel sounds are positive. Abdomen is soft, nontender, and nondistended. Extremities: No rash, lesions, or edema. No restriction of range of motion NEUROLOGICAL EXAMINATION: Alert. Not speak much Icelandic. Not sure if he was oriented to time, place and person. PERRL. EOMI. CN: no focal findings. Muscle tone: within normal. Muscle strength: 5- to 5 DTR: 2 Plantar reflex: Flexor response bilaterally Gait: not examined in bed. Sensory exam: no acute abnormal findings. No acute cerebellar signs elicited. F-T-N test fine. Current Medications Current Medications Current Medications Sodium Chloride (Iv Sodium Chloride 0.9% 500ml Bag) 500 ml @ 500 mls/hr 1X ONCE IV Last administered on 07/15/16 13:47; Start 07/15/16 at 13:45; Stop at 14:44; Status DC Ondansetron HCl (Zofran) 4 mg PRN Q8HRS PRN IV NAUSEA/VOMITING; Start 07/15/16 at 15:15; Stop 07/15/16 at 18:34; Status DC Morphine Sulfate 2 mg PRN Q2HR PRN IV PAIN Last administered on 07/16/16 09:20 ; Start 07/15/16 at 15:15; Stop 07/16/16 at 15:14; Status DC Acetaminophen 650 mg 650 mg PRN Q4HRS PRN PO FEVER; Start 07/15/16 at 15:15; Stop 07/15/16 at 18:34; Status DC Sodium Chloride (Iv Sodium Chloride 0.9% 1000ml Bag) 1,000 ml @ 1,000 mls/hr 1X ONCE IV Last administered on 07/15/16 15:43; Start 07/15/16 at 15:15; Stop 07/15/16 at 16:14; Status DC Insulin Aspart (Novolog) 0-7 UNITS TIDWMEALS SQ ; Start 07/15/16 at 16:00; Stop 07/15/16 at 18:55; Status DC Dextrose 12.5 gm 12.5 gm PRN Q15MIN PRN IV SEE COMMENTS; Start 07/15/16 at 15: 15; Stop 07/16/16 at 11:22; Status DC Ceftriaxone Sodium/Sodium Chloride (Rocephin/Iv Sodium Chloride 0.9% 50ml) 50 ml @ 100 mls/hr 1X ONCE IV Last administered on 07/15/16 20:58; Start at 17:15; Stop 07/15/16 at 17:44; Status DC Acetaminophen (Tylenol) 325 mg PRN Q6HRS PRN PO MILD PAIN / TEMP; Start at 18:30 Acetaminophen/ Hydrocodone Bitart (Lortab 5/325) 1 tab PRN Q6HRS PRN PO MODERATE TO SEVERE PAIN; Start 07/15/16 at 18:30 Hydralazine HCl (Apresoline) 10 mg PRN Q4HRS PRN IVP ELEVATED BP, SEE COMMENTS ; Start 07/15/16 at 18:30 Ondansetron HCl (Zofran) 4 mg PRN Q8HRS PRN IV NAUSEA/VOMITING; Start 07/15/16 at 18:30 Albuterol Sulfate 2.5 mg 2.5 mg PRN Q4HRS PRN NEB SHORTNESS OF BREATH; Start at 18:30 Ceftriaxone Sodium/Sodium Chloride (Rocephin/Iv Sodium Chloride 0.9% 50ml) 50 ml @ 100 mls/hr Q24H IV ; Start 07/15/16 at 20:00; Stop 07/15/16 at 21:28; Status DC Lorazepam (Ativan) 2 mg 1X ONCE IV Last administered on 07/15/16 19:00; Start 07/15/16 at 19:00; Stop 07/15/16 at 19:01; Status DC Lorazepam 2 mg 2 mg PRN Q2HR PRN IV SEIZURES; Start 07/15/16 at 19:00 Sodium Chloride (Iv Sodium Chloride 0.9% 1000ml Bag) 1,000 ml @ 75 mls/hr [id number] IV Last administered on 07/16/16 09:11; Start 07/15/16 at 19:00; Stop 07/16/16 at 18:59 Insulin Aspart (Novolog) 0-9 UNITS TIDWMEALS SQ Last administered on 07/16/16 13:25; Start 07/16/16 at 08:00 Dextrose 12.5 gm 12.5 gm PRN Q15MIN PRN IV SEE COMMENTS; Start 07/15/16 at 19: 00 Ceftriaxone Sodium/Sodium Chloride (Rocephin/Iv Sodium Chloride 0.9% 50ml) 50 ml @ 100 mls/hr Q24H IV ; Start 07/16/16 at 20:00; Stop 07/16/16 at 20:00; Status DC Levetiracetam 500 mg 500 mg BID PO Last administered on 07/16/16 09:19; Start 07/16/16 at 10:00; Stop 07/16/16 at 11:05; Status DC Potassium Chloride (KCl Premix 10meq) 100 ml @ 100 mls/hr Q1H IV Last administered on 07/16/16 15:42; Start 07/16/16 at 09:30; Stop 07/16/16 at 13:29; Status DC Amlodipine Besylate (Norvasc) 20 mg BID PO Last administered on 07/16/16 13:16 ; Start 07/16/16 at 12:00 Metformin HCl (Glucophage) 1,000 mg BIDWMEALS PO Last administered on 07/16/16 13:16; Start 07/16/16 at 12:00 Oxybutynin Chloride (Ditropan) 5 mg BID PO Last administered on 07/16/16 13:16 ; Start 07/16/16 at 12:00 Ciprofloxacin (Cipro) 500 mg BID PO Last administered on 07/16/16 13:16; Start 07/16/16 at 12:00 Glimepiride (Amaryl) 4 mg DAILY PO Last administered on 07/16/16 13:16; Start 07/16/16 at 12:00 Losartan Potassium (Cozaar) 100 mg DAILY PO Last administered on 07/16/16 13:15 ; Start 07/16/16 at 12:00 Metoprolol Tartrate (Lopressor) 100 mg BID PO Last administered on 07/16/16 13: 17; Start 07/16/16 at 12:00 Active Scripts Active Norvasc (Amlodipine Besylate) 10 Mg Tablet 20 Mg PO BID Cipro (Ciprofloxacin Hcl) 500 Mg Tablet 1 Tab PO BID Reported Cinnamon (Cinnamon Bark) 500 Mg Capsule 500 Mg PO Losartan Potassium 100 Mg Tablet 100 Mg PO DAILY Metformin Hcl 1,000 Mg Tablet 1 Tab PO BID Oxybutynin Chloride 5 Mg Tablet 1 Tab PO BID Metoprolol Tartrate 100 Mg Tablet 1 Tab PO BID Glimepiride 4 Mg Tablet 1 Tab PO DAILY Allergies Allergies: Coded Allergies: No Known Drug Allergies (Unverified , 07/05/16) Vitals VITALS Vital Signs Date Time Temp Pulse Resp B/P Pulse Ox O2 Delivery O2 Flow Rate FiO2 07/16/16 14:53 98.0 85 20 152/81 94 Room Air 98.0 Labs Labs Laboratory Tests Test 07/15/16 13:26 07/15/16 13:40 07/15/16 14:25 2/28/17 14:45 White Blood Count 9.6x10^3/uL (4.0-11.0) Red Blood Count 5.87x10^6/uL (4.30-5.70) Hemoglobin 17.0g/dL (13.0-17.5) Hematocrit 49.1% (39.0-53.0) Mean Corpuscular Volume 84fL (79-100) Mean Corpuscular Hemoglobin 29pg (25-35) Mean Corpuscular Hemoglobin Concent 35g/dL (31-37) Red Cell Distribution Width 13.4% (11.5-14.5) Platelet Count 312x10^3/uL (140-400) Neutrophils (%) (Auto) 67% (31-73) Lymphocytes (%) (Auto) 24% (24-48) Monocytes (%) (Auto) 6% (0-9) Eosinophils (%) (Auto) 2% (0-3) Basophils (%) (Auto) 1% (0-3) Neutrophils # (Auto) 6.4x10^3uL (1.8-7.7) Lymphocytes # (Auto) 2.3x10^3/uL (1.0-4.8) Monocytes # (Auto) 0.5x10^3/uL (0.0-1.1) Eosinophils # (Auto) 0.2x10^3/uL (0.0-0.7) Basophils # (Auto) 0.1x10^3/uL (0.0-0.2) Sodium Level 138mmol/L (136-145) Potassium Level 4.1mmol/L (3.5-5.1) Chloride Level 99mmol/L (98-107) Carbon Dioxide Level 28mmol/L (21-32) Anion Gap 11 (6-14) Blood Urea Nitrogen 22mg/dL (8-26) Creatinine 1.2mg/dL (0.7-1.3) Estimated GFR (Cockcroft-Gault) 63.8 BUN/Creatinine Ratio 18 (6-20) Glucose Level 323mg/dL (70-99) Calcium Level 9.7mg/dL (8.5-10.1) Magnesium Level 1.7mg/dL (1.8-2.4) Total Bilirubin 0.5mg/dL (0.2-1.0) Aspartate Amino Transf (AST/SGOT) 13U/L (15-37) Alanine Aminotransferase (ALT/SGPT) 25U/L (16-63) Alkaline Phosphatase 81U/L (46-116) Total Protein 8.2g/dL (6.4-8.2) Albumin 3.8g/dL (3.4-5.0) Albumin/Globulin Ratio 0.9 (1.0-1.7) Lactic Acid Level 4.0mmol/L (0.4-2.0) 2.7mmol/L (0.4-2.0) Urine Collection Type Unknown Urine Color Yellow Urine Clarity Clear Urine pH 6.0 Urine Specific [place] >=1.030 Urine Protein >=300mg/dL (NEG-TRACE) Urine Glucose (UA) >=1000mg/dL (NEG) Urine Ketones (Stick) Negativemg/dL (NEG) Urine Blood Trace (NEG) Urine Nitrite Positive (NEG) Urine Bilirubin Negative (NEG) Urine Urobilinogen Dipstick 0.2mg/dL (0.2 mg/dL) Urine Leukocyte Esterase Negative (NEG) Urine RBC Occ/HPF (0-2) Urine WBC 11-20/HPF (0-4) Urine Squamous Epithelial Cells Occ/LPF Urine Bacteria Many/HPF (0-FEW) Urine Hyaline Casts Few/HPF Urine Mucus Mod/LPF Urine Opiates Screen Neg (NEG) Urine Methadone Screen Neg (NEG) Urine Barbiturates Neg (NEG) Urine Phencyclidine Screen Neg (NEG) Urine Amphetamine/Methamphetamine Neg (NEG) Urine Benzodiazepines Screen Neg (NEG) Urine Cocaine Screen Neg (NEG) Urine Cannabinoids Screen Neg (NEG) Urine Ethyl Alcohol Neg (NEG) Test 07/15/16 17:00 07/15/16 21:09 07/16/16 03:24 07/16/16 07:43 Lactic Acid Level 2.0mmol/L (0.4-2.0) Glucose (Fingerstick) 228mg/dL (70-99) 181mg/dL (70-99) White Blood Count 9.2x10^3/uL (4.0-11.0) Red Blood Count 5.21x10^6/uL (4.30-5.70) Hemoglobin 15.1g/dL (13.0-17.5) Hematocrit 43.9% (39.0-53.0) Mean Corpuscular Volume 84fL (79-100) Mean Corpuscular Hemoglobin 29pg (25-35) Mean Corpuscular Hemoglobin Concent 34g/dL (31-37) Red Cell Distribution Width 13.6% (11.5-14.5) Platelet Count 254x10^3/uL (140-400) Neutrophils (%) (Auto) 64% (31-73) Lymphocytes (%) (Auto) 25% (24-48) Monocytes (%) (Auto) 8% (0-9) Eosinophils (%) (Auto) 2% (0-3) Basophils (%) (Auto) 1% (0-3) Neutrophils # (Auto) 5.8x10^3uL (1.8-7.7) Lymphocytes # (Auto) 2.3x10^3/uL (1.0-4.8) Monocytes # (Auto) 0.7x10^3/uL (0.0-1.1) Eosinophils # (Auto) 0.2x10^3/uL (0.0-0.7) Basophils # (Auto) 0.1x10^3/uL (0.0-0.2) Sodium Level 141mmol/L (136-145) Potassium Level 3.2mmol/L (3.5-5.1) Chloride Level 102mmol/L (98-107) Carbon Dioxide Level 30mmol/L (21-32) Anion Gap 9 (6-14) Blood Urea Nitrogen 16mg/dL (8-26) Creatinine 0.9mg/dL (0.7-1.3) Estimated GFR (Cockcroft-Gault) 89.0 Glucose Level 181mg/dL (70-99) Calcium Level 9.0mg/dL (8.5-10.1) Test 07/16/16 11:51 Glucose (Fingerstick) 276mg/dL (70-99) Laboratory Tests Test 07/15/16 17:00 07/15/16 21:09 07/16/16 03:24 07/16/16 07:43 Lactic Acid Level 2.0mmol/L (0.4-2.0) Glucose (Fingerstick) 228mg/dL (70-99) 181mg/dL (70-99) White Blood Count 9.2x10^3/uL (4.0-11.0) Red Blood Count 5.21x10^6/uL (4.30-5.70) Hemoglobin 15.1g/dL (13.0-17.5) Hematocrit 43.9% (39.0-53.0) Mean Corpuscular Volume 84fL (79-100) Mean Corpuscular Hemoglobin 29pg (25-35) Mean Corpuscular Hemoglobin Concent 34g/dL (31-37) Red Cell Distribution Width 13.6% (11.5-14.5) Platelet Count 254x10^3/uL (140-400) Neutrophils (%) (Auto) 64% (31-73) Lymphocytes (%) (Auto) 25% (24-48) Monocytes (%) (Auto) 8% (0-9) Eosinophils (%) (Auto) 2% (0-3) Basophils (%) (Auto) 1% (0-3) Neutrophils # (Auto) 5.8x10^3uL (1.8-7.7) Lymphocytes # (Auto) 2.3x10^3/uL (1.0-4.8) Monocytes # (Auto) 0.7x10^3/uL (0.0-1.1) Eosinophils # (Auto) 0.2x10^3/uL (0.0-0.7) Basophils # (Auto) 0.1x10^3/uL (0.0-0.2) Sodium Level 141mmol/L (136-145) Potassium Level 3.2mmol/L (3.5-5.1) Chloride Level 102mmol/L (98-107) Carbon Dioxide Level 30mmol/L (21-32) Anion Gap 9 (6-14) Blood Urea Nitrogen 16mg/dL (8-26) Creatinine 0.9mg/dL (0.7-1.3) Estimated GFR (Cockcroft-Gault) 89.0 Glucose Level 181mg/dL (70-99) Calcium Level 9.0mg/dL (8.5-10.1) Test 07/16/16 11:51 Glucose (Fingerstick) 276mg/dL (70-99) PETTY KELLY MD Jul 16, 2016 17:15
[2016-07-16 19:56] VITALS: BP 151/102
[2016-07-16] MEDS ORDERED: CEFTRIAXONE SODIUM 1 GM in IV NORMAL SALINE 50ML 50 ML IV SCH (20:00)
[2016-07-16 23:36] VITALS: BP 134/78
[2016-07-17 03:08] VITALS: BP 149/96
[2016-07-17 04:57] LABS: CALCIUM 9.2 mg/dL (8.5-10.1); CREATININE 0.8 mg/dL (0.7-1.3); GFR 101.9; POTASSIUM 3.8 mmol/L (3.5-5.1)
[2016-07-17 07:00] VITALS: BP 151/104
[2016-07-17] MEDS: AMLODIPINE BESYLATE 10 MG TABLET PO SCH ×2 (09:22→21:55)
[2016-07-17] MEDS: METOPROLOL TART IMMED RELEASE 50 MG TABLET PO SCH ×2 (09:23→21:55)
[2016-07-17] MEDS: LOSARTAN POTASSIUM 50 MG TABLET. PO SCH (09:23)
[2016-07-17] MEDS: GLIMEPIRIDE 2 MG TABLET PO SCH (09:24)
[2016-07-17] MEDS: OXYBUTYNIN CHLORIDE 5 MG TABLET PO SCH ×2 (09:24→21:53)
[2016-07-17] MEDS: CIPROFLOXACIN HCL 250 MG TABLET PO SCH ×2 (09:24→21:53)
[2016-07-17] MEDS: METFORMIN 1,000 MG TABLET PO SCH ×2 (09:24→17:51)
[2016-07-17] MEDS: INSULIN ASPART 300 UNITS/3 ML INSULN.PEN SQ SCH ×3 (09:28→17:00)
[2016-07-17 10:43] VITALS: BP 149/92
--- NOTE | 2016-07-17 10:44 | PDOC ---
PROGRESS NOTES Chief Complaint Chief Complaint 1. SZ 2, HTN - recent urgency 3. Hx CVA 4, UTI, being treated recently History of Present Illness History of Present Illness Tolerating dysphagia 3 diet WObbly in gait per RN BUt pt SP - no rehab resources Just had EEG no recurrence of SZ so far APPLICATION COORDINATOR to re eval again today PLAn: APPLICATION COORDINATOR PT/OT Await EEG' Unfortunately needs rehab but is SP Vitals Vitals Vital Signs Date Time Temp Pulse Resp B/P Pulse Ox O2 Delivery O2 Flow Rate FiO2 07/17/16 09:23 66 151/104 07/17/16 08:00 Room Air 07/17/16 07:00 97.8 18 98 97.8 Physical Exam General: Alert, Oriented X3, Cooperative Heart: Regular rate, Normal S1, Normal S2 Lungs: Clear, Wheezing Abdomen: Soft Extremities: No clubbing, No cyanosis Skin: No rashes, No breakdown Labs LABS Laboratory Tests Test 07/16/16 11:51 07/16/16 16:20 07/16/16 20:49 07/17/16 04:19 Glucose (Fingerstick) 276mg/dL (70-99) 169mg/dL (70-99) 148mg/dL (70-99) Sodium Level 141mmol/L (136-145) Potassium Level 3.8mmol/L (3.5-5.1) Chloride Level 104mmol/L (98-107) Carbon Dioxide Level 30mmol/L (21-32) Anion Gap 7 (6-14) Blood Urea Nitrogen 12mg/dL (8-26) Creatinine 0.8mg/dL (0.7-1.3) Estimated GFR (Cockcroft-Gault) 101.9 Glucose Level 198mg/dL (70-99) Calcium Level 9.2mg/dL (8.5-10.1) Test 07/17/16 09:19 Glucose (Fingerstick) 203mg/dL (70-99) Review of Systems Review of Systems limited no stateless Assessment and Plan Assessmemt and Plan Problems Medical Problems: (1) Altered mental status Status: Acute (2) Mental status change Status: Acute Problems: Comment Review of Relevant I have reviewed the following items mary (where applicable) has been applied. Labs Laboratory Tests Test 07/15/16 13:26 07/15/16 13:40 07/15/16 14:25 07/15/16 14:45 White Blood Count 9.6x10^3/uL (4.0-11.0) Red Blood Count 5.87x10^6/uL (4.30-5.70) Hemoglobin 17.0g/dL (13.0-17.5) Hematocrit 49.1% (39.0-53.0) Mean Corpuscular Volume 84fL (79-100) Mean Corpuscular Hemoglobin 29pg (25-35) Mean Corpuscular Hemoglobin Concent 35g/dL (31-37) Red Cell Distribution Width 13.4% (11.5-14.5) Platelet Count 312x10^3/uL (140-400) Neutrophils (%) (Auto) 67% (31-73) Lymphocytes (%) (Auto) 24% (24-48) Monocytes (%) (Auto) 6% (0-9) Eosinophils (%) (Auto) 2% (0-3) Basophils (%) (Auto) 1% (0-3) Neutrophils # (Auto) 6.4x10^3uL (1.8-7.7) Lymphocytes # (Auto) 2.3x10^3/uL (1.0-4.8) Monocytes # (Auto) 0.5x10^3/uL (0.0-1.1) Eosinophils # (Auto) 0.2x10^3/uL (0.0-0.7) Basophils # (Auto) 0.1x10^3/uL (0.0-0.2) Sodium Level 138mmol/L (136-145) Potassium Level 4.1mmol/L (3.5-5.1) Chloride Level 99mmol/L (98-107) Carbon Dioxide Level 28mmol/L (21-32) Anion Gap 11 (6-14) Blood Urea Nitrogen 22mg/dL (8-26) Creatinine 1.2mg/dL (0.7-1.3) Estimated GFR (Cockcroft-Gault) 63.8 BUN/Creatinine Ratio 18 (6-20) Glucose Level 323mg/dL (70-99) Calcium Level 9.7mg/dL (8.5-10.1) Magnesium Level 1.7mg/dL (1.8-2.4) Total Bilirubin 0.5mg/dL (0.2-1.0) Aspartate Amino Transf (AST/SGOT) 13U/L (15-37) Alanine Aminotransferase (ALT/SGPT) 25U/L (16-63) Alkaline Phosphatase 81U/L (46-116) Total Protein 8.2g/dL (6.4-8.2) Albumin 3.8g/dL (3.4-5.0) Albumin/Globulin Ratio 0.9 (1.0-1.7) Lactic Acid Level 4.0mmol/L (0.4-2.0) 2.7mmol/L (0.4-2.0) Urine Collection Type Unknown Urine Color Yellow Urine Clarity Clear Urine pH 6.0 Urine Specific [place] >=1.030 Urine Protein >=300mg/dL (NEG-TRACE) Urine Glucose (UA) >=1000mg/dL (NEG) Urine Ketones (Stick) Negativemg/dL (NEG) Urine Blood Trace (NEG) Urine Nitrite Positive (NEG) Urine Bilirubin Negative (NEG) Urine Urobilinogen Dipstick 0.2mg/dL (0.2 mg/dL) Urine Leukocyte Esterase Negative (NEG) Urine RBC Occ/HPF (0-2) Urine WBC 11-20/HPF (0-4) Urine Squamous Epithelial Cells Occ/LPF Urine Bacteria Many/HPF (0-FEW) Urine Hyaline Casts Few/HPF Urine Mucus Mod/LPF Urine Opiates Screen Neg (NEG) Urine Methadone Screen Neg (NEG) Urine Barbiturates Neg (NEG) Urine Phencyclidine Screen Neg (NEG) Urine Amphetamine/Methamphetamine Neg (NEG) Urine Benzodiazepines Screen Neg (NEG) Urine Cocaine Screen Neg (NEG) Urine Cannabinoids Screen Neg (NEG) Urine Ethyl Alcohol Neg (NEG) Test 07/15/16 17:00 07/15/16 21:09 07/16/16 03:24 07/16/16 07:43 Lactic Acid Level 2.0mmol/L (0.4-2.0) Glucose (Fingerstick) 228mg/dL (70-99) 181mg/dL (70-99) White Blood Count 9.2x10^3/uL (4.0-11.0) Red Blood Count 5.21x10^6/uL (4.30-5.70) Hemoglobin 15.1g/dL (13.0-17.5) Hematocrit 43.9% (39.0-53.0) Mean Corpuscular Volume 84fL (79-100) Mean Corpuscular Hemoglobin 29pg (25-35) Mean Corpuscular Hemoglobin Concent 34g/dL (31-37) Red Cell Distribution Width 13.6% (11.5-14.5) Platelet Count 254x10^3/uL (140-400) Neutrophils (%) (Auto) 64% (31-73) Lymphocytes (%) (Auto) 25% (24-48) Monocytes (%) (Auto) 8% (0-9) Eosinophils (%) (Auto) 2% (0-3) Basophils (%) (Auto) 1% (0-3) Neutrophils # (Auto) 5.8x10^3uL (1.8-7.7) Lymphocytes # (Auto) 2.3x10^3/uL (1.0-4.8) Monocytes # (Auto) 0.7x10^3/uL (0.0-1.1) Eosinophils # (Auto) 0.2x10^3/uL (0.0-0.7) Basophils # (Auto) 0.1x10^3/uL (0.0-0.2) Sodium Level 141mmol/L (136-145) Potassium Level 3.2mmol/L (3.5-5.1) Chloride Level 102mmol/L (98-107) Carbon Dioxide Level 30mmol/L (21-32) Anion Gap 9 (6-14) Blood Urea Nitrogen 16mg/dL (8-26) Creatinine 0.9mg/dL (0.7-1.3) Estimated GFR (Cockcroft-Gault) 89.0 Glucose Level 181mg/dL (70-99) Calcium Level 9.0mg/dL (8.5-10.1) Test 07/16/16 11:51 07/16/16 16:20 07/16/16 20:49 07/17/16 04:19 Glucose (Fingerstick) 276mg/dL (70-99) 169mg/dL (70-99) 148mg/dL (70-99) Sodium Level 141mmol/L (136-145) Potassium Level 3.8mmol/L (3.5-5.1) Chloride Level 104mmol/L (98-107) Carbon Dioxide Level 30mmol/L (21-32) Anion Gap 7 (6-14) Blood Urea Nitrogen 12mg/dL (8-26) Creatinine 0.8mg/dL (0.7-1.3) Estimated GFR (Cockcroft-Gault) 101.9 Glucose Level 198mg/dL (70-99) Calcium Level 9.2mg/dL (8.5-10.1) Test 07/17/16 09:19 Glucose (Fingerstick) 203mg/dL (70-99) Laboratory Tests Test 07/16/16 11:51 07/16/16 16:20 07/16/16 20:49 07/17/16 04:19 Glucose (Fingerstick) 276mg/dL (70-99) 169mg/dL (70-99) 148mg/dL (70-99) Sodium Level 141mmol/L (136-145) Potassium Level 3.8mmol/L (3.5-5.1) Chloride Level 104mmol/L (98-107) Carbon Dioxide Level 30mmol/L (21-32) Anion Gap 7 (6-14) Blood Urea Nitrogen 12mg/dL (8-26) Creatinine 0.8mg/dL (0.7-1.3) Estimated GFR (Cockcroft-Gault) 101.9 Glucose Level 198mg/dL (70-99) Calcium Level 9.2mg/dL (8.5-10.1) Test 07/17/16 09:19 Glucose (Fingerstick) 203mg/dL (70-99) Microbiology 07/15/16 Urine Culture - Preliminary, Resulted 07/15/16 Urine Culture Result 1 (DERRICK) - Preliminary, Resulted Medications Current Medications Sodium Chloride (Iv Sodium Chloride 0.9% 500ml Bag) 500 ml @ 500 mls/hr 1X ONCE IV Last administered on 07/15/16t 13:47; Start 07/15/16 at 13:45; Stop at 14:44; Status DC Ondansetron HCl (Zofran) 4 mg PRN Q8HRS PRN IV NAUSEA/VOMITING; Start 07/15/16 at 15:15; Stop 07/15/16 at 18:34; Status DC Morphine Sulfate 2 mg PRN Q2HR PRN IV PAIN Last administered on 07/16/16 09:20 ; Start 07/15/16 at 15:15; Stop 07/16/16 at 15:14; Status DC Acetaminophen 650 mg 650 mg PRN Q4HRS PRN PO FEVER; Start 07/15/16 at 15:15; Stop 07/15/16 at 18:34; Status DC Sodium Chloride (Iv Sodium Chloride 0.9% 1000ml Bag) 1,000 ml @ 1,000 mls/hr 1X ONCE IV Last administered on 07/15/16 15:43; Start 07/15/16 at 15:15; Stop 07/15/16 at 16:14; Status DC Insulin Aspart (Novolog) 0-7 UNITS TIDWMEALS SQ ; Start 07/15/16 at 16:00; Stop 07/15/16 at 18:55; Status DC Dextrose 12.5 gm 12.5 gm PRN Q15MIN PRN IV SEE COMMENTS; Start 07/15/16 at 15: 15; Stop 07/16/16 at 11:22; Status DC Ceftriaxone Sodium/Sodium Chloride (Rocephin/Iv Sodium Chloride 0.9% 50ml) 50 ml @ 100 mls/hr 1X ONCE IV Last administered on 07/15/16 20:58; Start at 17:15; Stop 07/15/16 at 17:44; Status DC Acetaminophen (Tylenol) 325 mg PRN Q6HRS PRN PO MILD PAIN / TEMP; Start at 18:30 Acetaminophen/ Hydrocodone Bitart (Lortab 5/325) 1 tab PRN Q6HRS PRN PO MODERATE TO SEVERE PAIN; Start 07/15/16 at 18:30 Hydralazine HCl (Apresoline) 10 mg PRN Q4HRS PRN IVP ELEVATED BP, SEE COMMENTS ; Start 07/15/16 at 18:30 Ondansetron HCl (Zofran) 4 mg PRN Q8HRS PRN IV NAUSEA/VOMITING; Start 07/15/16 at 18:30 Albuterol Sulfate 2.5 mg 2.5 mg PRN Q4HRS PRN NEB SHORTNESS OF BREATH; Start at 18:30 Ceftriaxone Sodium/Sodium Chloride (Rocephin/Iv Sodium Chloride 0.9% 50ml) 50 ml @ 100 mls/hr Q24H IV ; Start 07/15/16 at 20:00; Stop 07/15/16 at 21:28; Status DC Lorazepam (Ativan) 2 mg 1X ONCE IV Last administered on 07/15/16 19:00; Start 07/15/16 at 19:00; Stop 07/15/16 at 19:01; Status DC Lorazepam 2 mg 2 mg PRN Q2HR PRN IV SEIZURES; Start 07/15/16 at 19:00 Sodium Chloride (Iv Sodium Chloride 0.9% 1000ml Bag) 1,000 ml @ 75 mls/hr [id number] IV Last administered on 07/16/16 09:11; Start 07/15/16 at 19:00; Stop 07/16/16 at 18:59; Status DC Insulin Aspart (Novolog) 0-9 UNITS TIDWMEALS SQ Last administered on 07/17/16 09:28; Start 07/16/16 at 08:00 Dextrose 12.5 gm 12.5 gm PRN Q15MIN PRN IV SEE COMMENTS; Start 07/15/16 at 19: 00 Ceftriaxone Sodium/Sodium Chloride (Rocephin/Iv Sodium Chloride 0.9% 50ml) 50 ml @ 100 mls/hr Q24H IV ; Start 07/16/16 at 20:00; Stop 07/16/16 at 20:00; Status DC Levetiracetam 500 mg 500 mg BID PO Last administered on 07/16/16 09:19; Start 07/16/16 at 10:00; Stop 07/16/16 at 11:05; Status DC Potassium Chloride (KCl Premix 10meq) 100 ml @ 100 mls/hr Q1H IV Last administered on 07/16/16 15:42; Start 07/16/16 at 09:30; Stop 07/16/16 at 13:29; Status DC Amlodipine Besylate (Norvasc) 20 mg BID PO Last administered on 07/17/16 09:22 ; Start 07/16/16 at 12:00 Metformin HCl (Glucophage) 1,000 mg BIDWMEALS PO Last administered on 07/17/16 09:24; Start 07/16/16 at 12:00 Oxybutynin Chloride (Ditropan) 5 mg BID PO Last administered on 07/17/16 09:24 ; Start 07/16/16 at 12:00 Ciprofloxacin (Cipro) 500 mg BID PO Last administered on 07/17/16 09:24; Start 07/16/16 at 12:00 Glimepiride (Amaryl) 4 mg DAILY PO Last administered on 07/17/16 09:24; Start 07/16/16 at 12:00 Losartan Potassium (Cozaar) 100 mg DAILY PO Last administered on 07/17/16 09:23 ; Start 07/16/16 at 12:00 Metoprolol Tartrate (Lopressor) 100 mg BID PO Last administered on 07/17/16 09: 23; Start 07/16/16 at 12:00 Active Scripts Active Norvasc (Amlodipine Besylate) 10 Mg Tablet 20 Mg PO BID Cipro (Ciprofloxacin Hcl) 500 Mg Tablet 1 Tab PO BID Reported Cinnamon (Cinnamon Bark) 500 Mg Capsule 500 Mg PO Losartan Potassium 100 Mg Tablet 100 Mg PO DAILY Metformin Hcl 1,000 Mg Tablet 1 Tab PO BID Oxybutynin Chloride 5 Mg Tablet 1 Tab PO BID Metoprolol Tartrate 100 Mg Tablet 1 Tab PO BID Glimepiride 4 Mg Tablet 1 Tab PO DAILY Vitals/I & O Vital Sign - Last 24 Hours 07/16/16 07/16/16 07/16/16 07/16/16 11:00 13:15 13:16 13:17 Temp 97.7 97.7 Pulse 79 79 79 79 Resp 16 B/P 169/110 169/110 169/110 169/110 Pulse Ox 97 O2 Delivery Room Air 07/16/16 07/16/16 07/16/16 07/16/16 14:53 19:56 20:00 20:46 Temp 98.0 97.9 98.0 97.9 Pulse 85 72 72 Resp 20 20 B/P 152/81 151/102 151/102 Pulse Ox 94 98 O2 Delivery Room Air Room Air Room Air 07/16/16 07/16/16 07/17/16 07/17/16 20:47 23:36 03:08 07:00 Temp 97.7 97.9 97.8 97.7 97.9 97.8 Pulse 72 69 72 66 Resp 20 16 18 B/P 151/102 134/78 149/96 151/104 Pulse Ox 97 95 98 O2 Delivery Room Air Room Air Room Air 07/17/16 07/17/16 07/17/16 07/17/16 08:00 09:22 09:23 09:23 Pulse 66 66 66 B/P 151/104 151/104 151/104 O2 Delivery Room Air Intake and Output 07/16/16 07/16/16 07/17/16 15:00 23:00 07:00 Intake Total 950 ml 120 ml Output Total 900 ml Balance 950 ml -780 ml CHARISSA ORO MD Jul 17, 2016 10:44
--- NOTE | 2016-07-17 14:34 | PDOC ---
PROGRESS NOTES Assessment Assessment MS changes. Questionable seizure UTI HTN DM Lactic acidosis. CVA per Hx. Former heavy drinker. RECOMMENDATIONS/PLAN: Treat medical diseases. FU with PCP. Avoid driving x 6 months. Seizure precaution. EEG on 07/17/16: Normal. No epileptiform discharges. HCT: Negative. HISTORY OF THE PRESENT ILLNESS: 51-y-old [place] origin male patient was recently admitted and treated for UTI and other medical problems. He was admitted this time due to MS changes, questionable seizure, UTI, etc. No acute focalized neurological deficits found. He had Hx of CVA reported 6 months ago but recovered well. He stated he did not have seizures. No shaking, jerking or chele movements. No LOC, except bit tongue one time during night sleep. PAST MEDICAL HISTORY: Please see above. PAST SURGERY HISTORY: No major surgery recently. ALLERGY: Reviewed. MEDICATIONS: Refer to [facility] FAMILY HISTORY: DM SOCIAL HISTORY: Denied current status of smoking, drinking, and illicit drug use. He drank 1 L of 40% of alcohol on weekend for over a year but quit drinking a year ago except occasional drinking. REVIEW OF SYSTEMS: Constitutional: No malnutrition, weight loss, cachexia. Head: No traumatic brain or head injury. Skin: No edema, or rash. Ear: No infection, tinnitus. Eyes: No vision loss or color blindness. Nose: No bleeding or purulent discharges. Hearing: No hearing decrease. Neck: No injury. Cardiac: HTN. Pulmonary: No COPD. GI: No GI ulcer, GI bleeding. Urinary/genital: NUTI. Endocrinologic: Diabetes Mellitus. Skeletomuscular: No muscular atrophy, deformity. Neurological: see HP. Psychiatric: unknown his status of drug use/abuse. Otherwise, not [id number] review of systems. PHYSICAL EXAMINATION: General appearance is in no acute distress. HEENT: Normocephalic and nontraumatic. Eyes, nose, ears, and throat are unremarkable. Neck is supple. No lymphadenopathy. No bruits are heard over the carotid artery. No crepitus. Cardiovascular: S1, S2, regular rate and rhythm. Pulmonary: Clear to auscultation bilaterally. Abdomen: Bowel sounds are positive. Abdomen is soft, nontender, and nondistended. Extremities: No rash, lesions, or edema. No restriction of range of motion NEUROLOGICAL EXAMINATION: Alert. His mentation was normalized since 07/16/16. He does not speak much Japanese, so Incident Response Consultant was called on phone to help translate. Not sure if he was oriented to time, place and person. PERRL. EOMI. CN: no focal findings. Muscle tone: within normal. Muscle strength: 5 DTR: 2 Plantar reflex: Flexor response bilaterally Gait: At his baseline normal. Sensory exam: no acute abnormal findings. No acute cerebellar signs elicited. F-T-N test fine. Objective Objective Vital Signs Date Time Temp Pulse Resp B/P Pulse Ox O2 Delivery O2 Flow Rate FiO2 07/17/16 10:43 97.3 64 18 149/92 96 Room Air 97.3 Intake and Output 07/17/16 07:00 Intake Total 1070 ml Output Total 900 ml Balance 170 ml Intake Oral 1070 ml Output Urine Total 900 ml # Voids 6 # Bowel Movements 1 Vitals Signs Vitals VS - Last 72 Hours, by Label Date Time Temp Pulse Resp B/P Pulse Ox O2 Delivery O2 Flow Rate FiO2 07/17/16 10:43 97.3 64 18 149/92 96 Room Air 97.3 07/17/16 09:23 66 151/104 07/17/16 09:23 66 151/104 07/17/16 09:22 66 151/104 07/17/16 08:00 Room Air 07/17/16 07:00 97.8 66 18 151/104 98 Room Air 97.8 07/17/16 03:08 97.9 72 16 149/96 95 Room Air 97.9 07/16/16 23:36 97.7 69 20 134/78 97 Room Air 97.7 07/16/16 20:47 72 151/102 07/16/16 20:46 72 151/102 07/16/16 20:00 Room Air 07/16/16 19:56 97.9 72 20 151/102 98 Room Air 97.9 07/16/16 14:53 98.0 85 20 152/81 94 Room Air 98.0 07/16/16 13:17 79 169/110 07/16/16 13:16 79 169/110 07/16/16 13:15 79 169/110 07/16/16 11:00 97.7 79 16 169/110 97 Room Air 97.7 07/16/16 09:50 20 Room Air 07/16/16 09:20 20 Room Air 07/16/16 08:00 Room Air 07/16/16 07:33 97.9 88 22 158/97 96 Room Air 97.9 Laboratory Laboratory Laboratory Tests Test 07/16/16 16:20 07/16/16 20:49 07/17/16 04:19 07/17/16 09:19 Glucose (Fingerstick) 169mg/dL (70-99) 148mg/dL (70-99) 203mg/dL (70-99) Sodium Level 141mmol/L (136-145) Potassium Level 3.8mmol/L (3.5-5.1) Chloride Level 104mmol/L (98-107) Carbon Dioxide Level 30mmol/L (21-32) Anion Gap 7 (6-14) Blood Urea Nitrogen 12mg/dL (8-26) Creatinine 0.8mg/dL (0.7-1.3) Estimated GFR (Cockcroft-Gault) 101.9 Glucose Level 198mg/dL (70-99) Calcium Level 9.2mg/dL (8.5-10.1) Test 07/17/16 12:10 Glucose (Fingerstick) 223mg/dL (70-99) Microbiology 07/15/16 Urine Culture - Preliminary, Resulted 07/15/16 Urine Culture Result 1 (DERRICK) - Preliminary, Resulted Medication Medications Current Medications Ceftriaxone Sodium/Sodium Chloride (Rocephin/Iv Sodium Chloride 0.9% 50ml) 50 ml @ 100 mls/hr Q24H IV ; Start 07/16/16 at 20:00; Stop 07/16/16 at 20:00; Status DC Comment Review of Relevant I have reviewed the following items mary (where applicable) has been applied. PETTY KELLY MD Jul 17, 2016 14:34
[2016-07-17 14:52] VITALS: BP 122/88
--- NOTE | 2016-07-17 17:39 | EEG ---
DATE OF SERVICE: 07/17/2016 EEG NUMBER: [id number] OBJECTIVE: This is a 51-year-old Syriac origin male patient with history of mental status changes and a questionable seizure like episode. EEG was requested to evaluate seizure activity. METHOD: Twenty electrodes were applied according to the international 10-20 electrode placement system. EKG monitoring, hyperventilation, intermittent photic stimulation, monopolar and bipolar montages are routinely utilized. The record was obtained on a digital system with video monitoring. MEDICATIONS: No anti-seizure medication. FINDINGS: 1. Background: The patient was recorded in the awake, drowsy, and sleep states. The overall background amplitude is 10-20 microvolts. A posterior dominant rhythm of 8 Hz is observed. 2. Abnormalities: No specific epileptiform discharge or electrographic seizure is seen. No focal or diffuse slowing. 3. Activation: Hyperventilation was not performed because the patient refused to perform the technique. Intermittent photic stimulation was performed with photic driving. No specific epileptiform discharge or electrographic seizure induced by intermittent photic stimulation. IMPRESSION: This EEG is within the broad normal limits of the study for the awake, drowsy, and sleep states. No focal, lateralizing, specific epileptiform discharge, or electrographic seizure is seen. PETTY KELLY MD DR: SRINIVAS/luisito JOB#: [id number] / [id number] MILE
[2016-07-17 19:00] VITALS: BP 152/95
[2016-07-17 23:00] VITALS: BP 131/94
[2016-07-18 02:42] LABS: CALCIUM 9.2 mg/dL (8.5-10.1); GFR 78.8; MAGNESIUM 1.6 mg/dL (1.8-2.4); POTASSIUM 3.5 mmol/L (3.5-5.1)
[2016-07-18 03:17] VITALS: BP 136/88
[2016-07-18 07:00] VITALS: BP 158/96
[2016-07-18] MEDS: METFORMIN 1,000 MG TABLET PO SCH (08:35)
[2016-07-18] MEDS: GLIMEPIRIDE 2 MG TABLET PO SCH (08:36)
[2016-07-18] MEDS: OXYBUTYNIN CHLORIDE 5 MG TABLET PO SCH (08:36)
[2016-07-18] MEDS: LOSARTAN POTASSIUM 50 MG TABLET. PO SCH (08:36)
[2016-07-18] MEDS: CIPROFLOXACIN HCL 250 MG TABLET PO SCH (08:36)
[2016-07-18] MEDS: AMLODIPINE BESYLATE 10 MG TABLET PO SCH (08:36)
[2016-07-18] MEDS: METOPROLOL TART IMMED RELEASE 50 MG TABLET PO SCH (08:36)
[2016-07-18] MEDS: INSULIN ASPART 300 UNITS/3 ML INSULN.PEN SQ SCH ×2 (08:42→12:27)
--- NOTE | 2016-07-18 11:34 | PDOC3 ---
Discharge Summary Visit Information Date of Admission: Jul 15, 2016 Date of Discharge: Jul 18, 2016 Admitting Diagnosis Comment: 1. SZ 2, HTN - recent urgency 3. Hx CVA 4, UTI, being treated recently Final Diagnosis Problems Medical Problems: (1) Altered mental status Status: Acute (2) Mental status change Status: Acute (3) Seizure Status: Acute Brief Hospital Course Allergies Allergies Coded Allergies Type Severity Reaction Last Updated Verified No Known Drug Allergies 07/05/16 No Vital Signs Vital Signs Date Time Temp Pulse Resp B/P Pulse Ox O2 Delivery O2 Flow Rate FiO2 07/18/16 08:36 66 158/96 07/18/16 08:00 Room Air 07/18/16 07:00 97.7 20 97 97.7 Lab Results Laboratory Tests Test 07/16/16 11:51 07/16/16 16:20 07/16/16 20:49 07/17/16 04:19 Glucose (Fingerstick) 276mg/dL (70-99) 169mg/dL (70-99) 148mg/dL (70-99) Sodium Level 141mmol/L (136-145) Potassium Level 3.8mmol/L (3.5-5.1) Chloride Level 104mmol/L (98-107) Carbon Dioxide Level 30mmol/L (21-32) Anion Gap 7 (6-14) Blood Urea Nitrogen 12mg/dL (8-26) Creatinine 0.8mg/dL (0.7-1.3) Estimated GFR (Cockcroft-Gault) 101.9 Glucose Level 198mg/dL (70-99) Calcium Level 9.2mg/dL (8.5-10.1) Test 07/17/16 09:19 07/17/16 12:10 07/17/16 16:21 07/18/16 02:00 Glucose (Fingerstick) 203mg/dL (70-99) 223mg/dL (70-99) 176mg/dL (70-99) Sodium Level 140mmol/L (136-145) Potassium Level 3.5mmol/L (3.5-5.1) Chloride Level 103mmol/L (98-107) Carbon Dioxide Level 28mmol/L (21-32) Anion Gap 9 (6-14) Blood Urea Nitrogen 21mg/dL (8-26) Creatinine 1.0mg/dL (0.7-1.3) Estimated GFR (Cockcroft-Gault) 78.8 Glucose Level 208mg/dL (70-99) Calcium Level 9.2mg/dL (8.5-10.1) Magnesium Level 1.6mg/dL (1.8-2.4) Test 07/18/16 08:04 Glucose (Fingerstick) 185mg/dL (70-99) Laboratory Tests Test 07/17/16 12:10 07/17/16 16:21 07/18/16 02:00 07/18/16 08:04 Glucose (Fingerstick) 223mg/dL (70-99) 176mg/dL (70-99) 185mg/dL (70-99) Sodium Level 140mmol/L (136-145) Potassium Level 3.5mmol/L (3.5-5.1) Chloride Level 103mmol/L (98-107) Carbon Dioxide Level 28mmol/L (21-32) Anion Gap 9 (6-14) Blood Urea Nitrogen 21mg/dL (8-26) Creatinine 1.0mg/dL (0.7-1.3) Estimated GFR (Cockcroft-Gault) 78.8 Glucose Level 208mg/dL (70-99) Calcium Level 9.2mg/dL (8.5-10.1) Magnesium Level 1.6mg/dL (1.8-2.4) Brief Hospital Course Mr. Arauz is a 51 old [ male admitted for SZ, neurology did not start AED, To cont cipro bec was here few days ago for incidental UTI< To cont BP meds, was here few days ago for HTN urgency Scripts EVERYTHING REWRITTEN again today Dw via stretch machine operator signif time Pt seen and examined DisPo; home with family COnsults: Neuro proc: EEG normal Discharge Information Condition at Discharge: Improved, Stable Disposition/Orders: D/C to Home Scheduled Amlodipine Besylate (Norvasc) 20 MG PO BID Ciprofloxacin Hcl (Cipro) 1 TAB PO BID Glimepiride (Glimepiride) 1 TAB PO DAILY (Reported) Losartan Potassium (Losartan Potassium) 100 MG PO DAILY (Reported) Metformin Hcl (Metformin Hcl) 1 TAB PO BID (Reported) Metoprolol Tartrate (Metoprolol Tartrate) 1 TAB PO BID (Reported) Oxybutynin Chloride (Oxybutynin Chloride) 1 TAB PO BID (Reported) Miscellaneous Medications Cinnamon Bark (Cinnamon) 500 MG PO (Reported) CHARISSA ORO MD Jul 18, 2016 11:34
[2016-07-18 12:00] VITALS: BP 139/92
--- NOTE | 2016-07-18 13:32 | PDOC ---
PROGRESS NOTES Assessment Assessment MS changes. Questionable seizure UTI HTN DM Lactic acidosis. CVA per Hx. Former heavy drinker. RECOMMENDATIONS/PLAN: Treat medical diseases. FU with PCP. Avoid driving x 6 months. Patient education for seizure precaution. EEG on 07/17/16: Normal. No epileptiform discharges. HCT: Negative. HISTORY OF THE PRESENT ILLNESS: 51-y-old [place] origin male patient was recently admitted and treated for UTI and other medical problems. He was admitted this time due to MS changes, questionable seizure, UTI, etc. No acute focalized neurological deficits found. He had Hx of CVA reported 6 months ago but recovered well. He stated he did not have seizures. No shaking, jerking or chele movements. No LOC, except bit tongue one time during night sleep. PAST MEDICAL HISTORY: Please see above. PAST SURGERY HISTORY: No major surgery recently. ALLERGY: Reviewed. MEDICATIONS: Refer to [facility] FAMILY HISTORY: DM SOCIAL HISTORY: Denied current status of smoking, drinking, and illicit drug use. He drank 1 L of 40% of alcohol on weekend for over a year but quit drinking a year ago except occasional drinking. REVIEW OF SYSTEMS: Constitutional: No malnutrition, weight loss, cachexia. Head: No traumatic brain or head injury. Skin: No edema, or rash. Ear: No infection, tinnitus. Eyes: No vision loss or color blindness. Nose: No bleeding or purulent discharges. Hearing: No hearing decrease. Neck: No injury. Cardiac: HTN. Pulmonary: No COPD. GI: No GI ulcer, GI bleeding. Urinary/genital: UTI. Endocrinologic: Diabetes Mellitus. Skeletomuscular: No muscular atrophy, deformity. Neurological: see HP. Psychiatric: unknown his status of drug use/abuse. Otherwise, not [id number] review of systems. PHYSICAL EXAMINATION: General appearance is in no acute distress. HEENT: Normocephalic and nontraumatic. Eyes, nose, ears, and throat are unremarkable. Neck is supple. No lymphadenopathy. No bruits are heard over the carotid artery. No crepitus. Cardiovascular: S1, S2, regular rate and rhythm. Pulmonary: Clear to auscultation bilaterally. Abdomen: Bowel sounds are positive. Abdomen is soft, nontender, and nondistended. Extremities: No rash, lesions, or edema. No restriction of range of motion NEUROLOGICAL EXAMINATION: Alert. His mentation was normalized since 07/16/16. He does not speak much [place]ian, so Tan Room Supervisor was called on phone to help translate. Not sure if he was oriented to time, place and person. PERRL. EOMI. CN: no focal findings. Muscle tone: within normal. Muscle strength: 5 DTR: 2 Plantar reflex: Flexor response bilaterally Gait: At his baseline normal. Sensory exam: no acute abnormal findings. No acute cerebellar signs elicited. F-T-N test fine. Objective Objective Vital Signs Date Time Temp Pulse Resp B/P Pulse Ox O2 Delivery O2 Flow Rate FiO2 07/18/16 12:00 98.1 64 16 139/92 95 Room Air 98.1 Intake and Output 07/18/16 07:00 Intake Total 200 ml Output Total 1300 ml Balance -1100 ml Intake Oral 200 ml Output Urine Total 1300 ml # Voids 1 Vitals Signs Vitals VS - Last 72 Hours, by Label Date Time Temp Pulse Resp B/P Pulse Ox O2 Delivery O2 Flow Rate FiO2 07/18/16 12:00 98.1 64 16 139/92 95 Room Air 98.1 07/18/16 08:36 66 158/96 07/18/16 08:36 66 158/96 07/18/16 08:36 66 158/96 07/18/16 08:00 Room Air 07/18/16 07:00 97.7 66 20 158/96 97 Room Air 97.7 07/18/16 03:17 97.5 66 18 136/88 96 Room Air 97.5 07/17/16 23:00 97.6 68 18 131/94 98 Room Air 97.6 07/17/16 21:55 72 152/74 07/17/16 21:55 72 152/74 07/17/16 21:00 Room Air 07/17/16 19:00 97.5 72 18 152/95 100 97.5 07/17/16 14:52 97.5 63 18 122/88 100 Room Air 97.5 07/17/16 10:43 97.3 64 18 149/92 96 Room Air 97.3 07/17/16 09:23 66 151/104 07/17/16 09:23 66 151/104 07/17/16 09:22 66 151/104 07/17/16 08:00 Room Air 07/17/16 07:00 97.8 66 18 151/104 98 Room Air 97.8 Laboratory Laboratory Laboratory Tests Test 07/17/16 16:21 07/18/16 02:00 07/18/16 08:04 07/18/16 12:25 Glucose (Fingerstick) 176mg/dL (70-99) 185mg/dL (70-99) 186mg/dL (70-99) Sodium Level 140mmol/L (136-145) Potassium Level 3.5mmol/L (3.5-5.1) Chloride Level 103mmol/L (98-107) Carbon Dioxide Level 28mmol/L (21-32) Anion Gap 9 (6-14) Blood Urea Nitrogen 21mg/dL (8-26) Creatinine 1.0mg/dL (0.7-1.3) Estimated GFR (Cockcroft-Gault) 78.8 Glucose Level 208mg/dL (70-99) Calcium Level 9.2mg/dL (8.5-10.1) Magnesium Level 1.6mg/dL (1.8-2.4) Microbiology 07/15/16 Urine Culture - Final, Complete 07/15/16 Urine Culture Result 1 (DERRICK) - Final, Complete 07/15/16 Antimicrobic Susceptibility - Final, Complete Comment Review of Relevant I have reviewed the following items mary (where applicable) has been applied. PETTY KELLY MD Jul 18, 2016 13:32
== END 2016-07-18 14:50 | disposition home or self-care (01) | DRG 100 ==
LOC: ER 12:50 → 6 SOUTH 15:12
PROVIDERS: ADMIT Internal Medicine; ATTEND Internal Medicine
DX: R56.9 Unspecified convulsions (principal); G92 Toxic encephalopathy; N39.0 Urinary tract infection, site not specified; E87.2 Acidosis; E11.9 Type 2 diabetes mellitus without complications; G93.89 Other specified disorders of brain; I10 Essential (primary) hypertension; Z83.3 Family history of diabetes mellitus; Z86.73 Personal history of transient ischemic attack (TIA), and cerebral infarction without residual deficits
CPT/HCPCS: 36415; 70450; 71010; 76770; 80048; 80053; 81001; 82947; 83605; 83735; 85027; 87086; 87186; 93005; 94250; 94760; 95816; G0481; J0696; J1815; J2060; J2270; J3480; J7030; J7040; 92610; 97110; 97116; 97530; 97535; 99285-25